=== PATIENT | male | born 1965 | race Caucasian/White ===

== ENCOUNTER 2017-02-22 13:59 | Observation (INO) | payer OTHER ==
[2017-02-22] MEDS ORDERED: NS 0.9% 1000 ML* 1,000 ML IV SCH (14:30)
--- NOTE | 2017-02-22 14:50 | RAD ---
INDICATION: Weakness COMPARISON: November 05, 2004 TECHNIQUE: An AP portable view obtained at 1433 hours is submitted. FINDINGS: Bones/Soft Tissues: There are no acute bony findings. Cardiomediastinal: The cardiomediastinal silhouette is normal. Lungs: There are no infiltrates. Pleura: There are no pleural effusions. Other: None IMPRESSION: NO ACTIVE DISEASE.
[2017-02-22 15:00] LABS: Hematocrit 45 % (42-52); Hemoglobin 15.3 g/dl (14.0-18.0); Mean Corpuscular HGB Conc 34 g/dl (31-36); Mean Corpuscular Hemoglobin 30 pg (27-31); Mean Corpuscular Volume 87 fL (80-94); Mean Platelet Volume 9 um3 (7.4-10.4); Red Cell Distribution Width 14 % (10.5-15)
[2017-02-22 15:21] LABS: ALT 19 U/L (7-52); AST 16 U/L (13-39); Albumin 4.3 g/dL (3.2-5.2); Alkaline Phosphatase 59 U/L (34-104); Anion Gap 6 mmol/L (2-11); BUN/Creatinine Ratio 21.2 (8-20); Blood Urea Nitrogen 14 mg/dL (6-24); C Reactive Protein < 1.00 mg/L (< 5.00); CO2 Carbon Dioxide 27 mmol/L (22-32); Calcium 9.6 mg/dL (8.6-10.3); Chloride 101 mmol/L (101-111); Creatine Kinase 52 U/L (10-223); EGFR Non-African American 128.3 (>60); Globulin 2.6 g/dL (2-4); Glucose 241 mg/dL (70-100); Lipase < 10 U/L (11.0-82.0); Magnesium 1.9 mg/dL (1.9-2.7); Potassium 4.3 mmol/L (3.5-5.0); Sodium 134 mmol/L (133-145); Total Protein 6.9 g/dL (6.4-8.9)
[2017-02-22 15:41] LABS: TSH (Thyroid Stimulating Horm) 0.47 mcIU/mL (0.34-5.60)
[2017-02-22 16:48] LABS: Urine Bilirubin Negative (Negative); Urine Glucose 3+(>=500 mg/dL) (Negative); Urine Nitrite Negative (Negative)
[2017-02-22] MEDS ORDERED: oxyCODONE/Acetamin 5/325 MG* TAB PO ONE (18:22)
[2017-02-22] MEDS ORDERED: NS 0.9% 1000 ML* 2,000 ML IV ONE (18:23)
--- NOTE | 2017-02-22 18:55 | ED ---
Toño Caballero Benjamin, scribed for Checo Henderson MD on 02/22/17 at 1713 . Neurological HPI - HPI Summary HPI Summary: 51yo male c/o SOB today and increasing weakness over the last few days. Pt has tremors and has been taking propranolol but was recently taken off from it since his tremors turned out to be anxiety related not parkinsonian and his med has been giving him arm numbness, cold hands, and generalized pain. Pt has been weak chronically for over 15 months but reports his weakness becoming progressively worse over last couple of days. Pt has been following up with Dr. Arora but hasnt yet told Dr. Arora about his recent acute changes. Pt has also been constipated over a week now. - History of Current Complaint Chief Complaint: EDWeakness Stated Complaint: ARM NUMBNESS/HEADACHE Time Seen by Provider: 02/22/17 16:21 Hx Obtained From: Patient Onset/Duration: Started days ago - 2-3 days, Still Present Timing: Constant Onset Severity: Mild Current Severity: Moderate Neurological Deficit Location: Generalized - weakness Pain Intensity: 10 Character: Weak - Additional Pertinent History Primary Care Physician: [id number] - Allergy/Home Medications Allergies/Adverse Reactions: Allergies Allergy/AdvReac Type Severity Reaction Status Date / Time Penicillins Allergy Severe Rash Verified 05/25/16 11:21 Gabapentin Allergy Rash Verified 05/25/16 11:21 Home Medications: Home Medications Docusate CAP* [Colace Cap*] 100 mg PO QPM 02/22/17 [History Confirmed 02/22/17] Insulin Detemir (NF) [Levemir (NF)] 22 unit SUBCUT BID MDD 90 units 02/22/17 [ History Confirmed 02/22/17] Losartan TAB* [Cozaar TAB*] 100 mg PO DAILY 02/22/17 [History Confirmed 02/22/17 ] Omeprazole CAP* [Prilosec CAP* 20 MG] 20 mg PO DAILY 02/22/17 [History Confirmed 02/22/17] Propranolol TAB* [Inderal TAB*] 10 mg PO BID 02/22/17 [History Confirmed ] Simvastatin TAB(NF) [Zocor(NF)] 10 mg PO DAILY 02/22/17 [History Confirmed 02/22] PMH/Surg Hx/FS Hx/Imm Hx Endocrine/Hematology History: Reports: Hx Diabetes Cardiovascular History: Reports: Hx Hypertension Denies: Hx Pacemaker/ICD History: Denies: Hx Renal Disease Sensory History: Denies: Hx Hearing Aid Neurological History: Reports: Other Neuro Impairments/Disorders - parkinsonian tremors Psychiatric History: Reports: Hx Eating Disorder - binge and purges uses laxatives, Hx Depression, Hx Community Mental Health Tx Denies: Hx Panic Disorder, Hx of Violent Episodes Against Others - Surgical History Surgery Procedure, Year, and Place: ROTATOR CUFF REPAIR RIGHT 2012 Infectious Disease History: No Infectious Disease History: Denies: Traveled Outside the [place] in Last 30 Days - Family History Known Family History: Positive: Other - depression - Social History Occupation: Unemployed Lives: With Family Alcohol Use: None Substance Use Type: Reports: Prescribed Substance Use Comment - Amount & Last Used: klonopin Hx Tobacco Use: Yes Smoking Status (MU): Former Smoker Have You Smoked in the Last Year: No Review of Systems Constitutional: Negative Eyes: Negative ENT: Negative Cardiovascular: Negative Positive: Shortness Of Breath Gastrointestinal: Negative Genitourinary: Negative Musculoskeletal: Negative Skin: Negative Positive: Weakness Psychological: Normal All Other Systems Reviewed And Are Negative: Yes Physical Exam Triage Information Reviewed: Yes Vital Signs On Initial Exam: Initial Vitals Temp Pulse Resp BP Pulse Ox 99.2 F 91 17 131/89 100 02/22/17 14:03 02/22/17 14:03 02/22/17 14:03 02/22/17 14:03 02/22/17 14:03 Vital Signs Reviewed: Yes Appearance: Positive: No Pain Distress, Well-Nourished, Ill-Appearing - mildly Skin: Positive: Warm, Dry, Pale Head/Face: Positive: Normal Head/Face Inspection, TMJ Tenderness ENT: Positive: Normal ENT inspection Neck: Positive: Supple, Nontender Respiratory/Lung Sounds: Positive: Clear to Auscultation, Breath Sounds Present Cardiovascular: Positive: RRR, Pulses are Symmetrical in both Upper and Lower Extremities Abdomen Description: Positive: Nontender, Soft Bowel Sounds: Positive: Present Musculoskeletal: Negative: Strength/ROM Intact - weakness, generalized Neurological: Positive: Alert, Oriented to Person Place, Time. Negative: Sensory/Motor Intact - weakness, generalized Psychiatric: Positive: Affect/Mood Appropriate - [place] Coma Scale Coma Scale Total: 15 Diagnostics - Vital Signs Vital Signs Temp Pulse Resp BP Pulse Ox 02/22/17 15:30 80 14 117/72 99 08/23/17 15:00 93 17 150/83 100 02/22/17 14:30 90 13 121/74 100 02/22/17 14:17 93 15 100 02/22/17 14:15 118/90 02/22/17 14:03 99.2 F 91 17 131/89 100 - Laboratory Lab Results: Lab Results 02/22/17 02/22/17 02/22/17 Range/Units 14:45 14:45 14:45 WBC 7.0 (3.5-10.8) 10^3/ul RBC 5.20 (4.0-5.4) 10^6/ul Hgb 15.3 (14.0-18.0) g/dl Hct 45 (42-52) % MCV 87 (80-94) fL MCH 30 (27-31) pg MCHC 34 (31-36) g/dl RDW 14 (10.5-15) % Plt Count 166 (150-450) 10^3/ul MPV 9 (7.4-10.4) um3 Neut % (Auto) 73.1 (38-83) % Lymph % (Auto) 19.7 L (25-47) % [place] % (Auto) 6.1 (1-9) % Eos % (Auto) 0.9 (0-6) % Baso % (Auto) 0.2 (0-2) % Absolute Neuts (auto) 5.1 (1.5-7.7) 10^3/ul Absolute Lymphs (auto) 1.4 (1.0-4.8) 10^3/ul Absolute Monos (auto) 0.4 (0-0.8) 10^3/ul Absolute Eos (auto) 0.1 (0-0.6) 10^3/ul Absolute Basos (auto) 0 (0-0.2) 10^3/ul Absolute Nucleated RBC 0 10^3/ul Nucleated RBC % 0 INR (Anticoag Therapy) 0.98 (0.89-1.11) APTT 26.8 (26.0-36.3) seconds Sodium (133-145) mmol/L Potassium (3.5-5.0) mmol/L Chloride (101-111) mmol/L Carbon Dioxide (22-32) mmol/L Anion Gap (2-11) mmol/L BUN (6-24) mg/dL Creatinine (0.67-1.17) mg/dL Est GFR ( Amer) (>60) Est GFR (Non-Af Amer) (>60) BUN/Creatinine Ratio (8-20) Glucose (70-100) mg/dL Lactic Acid (0.5-2.0) mmol/L Calcium (8.6-10.3) mg/dL Magnesium (1.9-2.7) mg/dL Total Bilirubin (0.2-1.0) mg/dL AST (13-39) U/L ALT (7-52) U/L Alkaline Phosphatase (34-104) U/L Total Creatine Kinase (10-223) U/L CK-MB (CK-2) (0.6-6.3) ng/mL Troponin I (<0.04) ng/mL C-Reactive Protein (< 5.00) mg/L B-Natriuretic Peptide 20 ( - 100) pg/mL Total Protein (6.4-8.9) g/dL Albumin (3.2-5.2) g/dL Globulin (2-4) g/dL Albumin/Globulin Ratio (1-3) Lipase (11.0-82.0) U/L TSH (0.34-5.60) mcIU/mL Urine Color Urine Appearance Urine pH (5-9) Ur Specific [place] (1.010-1.030) Urine Protein (Negative) Urine Ketones (Negative) Urine Blood (Negative) Urine Nitrate (Negative) Urine Bilirubin (Negative) Urine Urobilinogen (Negative) Ur Leukocyte Esterase (Negative) Urine Glucose (Negative) Urine Ascorbic Acid (Negative) 02/22/17 02/22/17 02/22/17 Range/Units 14:45 14:45 16:36 WBC (3.5-10.8) 10^3/ul RBC (4.0-5.4) 10^6/ul Hgb (14.0-18.0) g/dl Hct (42-52) % MCV (80-94) fL MCH (27-31) pg MCHC (31-36) g/dl RDW (10.5-15) % Plt Count (150-450) 10^3/ul MPV (7.4-10.4) um3 Neut % (Auto) (38-83) % Lymph % (Auto) (25-47) % [place] % (Auto) (1-9) % Eos % (Auto) (0-6) % Baso % (Auto) (0-2) % Absolute Neuts (auto) (1.5-7.7) 10^3/ul Absolute Lymphs (auto) (1.0-4.8) 10^3/ul Absolute Monos (auto) (0-0.8) 10^3/ul Absolute Eos (auto) (0-0.6) 10^3/ul Absolute Basos (auto) (0-0.2) 10^3/ul Absolute Nucleated RBC 10^3/ul Nucleated RBC % INR (Anticoag Therapy) (0.89-1.11) APTT (26.0-36.3) seconds Sodium 134 (133-145) mmol/L Potassium 4.3 (3.5-5.0) mmol/L Chloride 101 (101-111) mmol/L Carbon Dioxide 27 (22-32) mmol/L Anion Gap 6 (2-11) mmol/L BUN 14 (6-24) mg/dL Creatinine 0.66 L (0.67-1.17) mg/dL Est GFR ( Amer) 165.0 (>60) Est GFR (Non-Af Amer) 128.3 (>60) BUN/Creatinine Ratio 21.2 H (8-20) Glucose 241 H (70-100) mg/dL Lactic Acid 1.2 (0.5-2.0) mmol/L Calcium 9.6 (8.6-10.3) mg/dL Magnesium 1.9 (1.9-2.7) mg/dL Total Bilirubin 0.50 (0.2-1.0) mg/dL AST 16 (13-39) U/L ALT 19 (7-52) U/L Alkaline Phosphatase 59 (34-104) U/L Total Creatine Kinase 52 (10-223) U/L CK-MB (CK-2) 2.0 (0.6-6.3) ng/mL Troponin I 0.00 (<0.04) ng/mL C-Reactive Protein < 1.00 (< 5.00) mg/L B-Natriuretic Peptide ( - 100) pg/mL Total Protein 6.9 (6.4-8.9) g/dL Albumin 4.3 (3.2-5.2) g/dL Globulin 2.6 (2-4) g/dL Albumin/Globulin Ratio 1.7 (1-3) Lipase < 10 L (11.0-82.0) U/L TSH 0.47 (0.34-5.60) mcIU/mL Urine Color Yellow Urine Appearance Clear Urine pH 7.0 (5-9) Ur Specific [place] 1.026 (1.010-1.030) Urine Protein Negative (Negative) Urine Ketones 1+ H (Negative) Urine Blood Negative (Negative) Urine Nitrate Negative (Negative) Urine Bilirubin Negative (Negative) Urine Urobilinogen Negative (Negative) Ur Leukocyte Esterase Negative (Negative) Urine Glucose 3+(>=500 mg/dl) H (Negative) Urine Ascorbic Acid * H (Negative) Result Diagrams: 02/22/17 14:45 02/22/17 14:45 Lab Statement: Any lab studies that have been ordered have been reviewed, and results considered in the medical decision making process. - Radiology CXR Xray Interpretation: No Acute Changes Radiology Interpretation Completed By: Radiologist - ED physician has reviewed this radiology report and agrees. - EKG 1425. Cardiac Rate: NL - 90bpm EKG Rhythm: Sinus Rhythm Ectopy: None EKG Interpretation: early repolarization Course/Dx - Course Course Of Treatment: Reviewed pts medication and allergy lists. Blood pressure noted. Discussed with Dr. Estes (Neurology) at 1650. Discussed with Dr. Martinez (Hospitalist) at 1720. Discussed with Dr. Carina Sosa who requested Hospitalist to admit. Discussed with Dr. Lomas (Hospitalist) at 1945. - Diagnoses Provider Diagnoses: Weakness Discharge - Discharge Plan Condition: Stable Disposition: ADMITTED TO [facility] Referrals: Marcio Swenson MD [Primary Care Provider] - The documentation as recorded by the Toño daly Benjamin accurately reflects the service I personally performed and the decisions made by me, Checo Henderson MD.
[2017-02-22] MEDS ORDERED: Dextrose 50% Syringe 50 ML* 25 GM/50 ML SYRINGE IV PUSH PRN (19:23)
--- NOTE | 2017-02-22 19:27 | ADMNOTE ---
Subjective Date of Service: 02/22/17 Interval History: ADMISSION HISTORY AND PHYSICAL EXAM: Allergies Allergy/AdvReac Type Severity Reaction Status Date / Time Penicillins Allergy Severe Rash Verified 05/25/16 11:21 Gabapentin Allergy Rash Verified 05/25/16 11:21 Home Medications Medication Instructions Recorded Confirmed Type clonazePAM TAB(*) [Klonopin TAB(*)] 1 mg PO BEDTIME 07/07/13 02/22/17 History Insulin Lispro [Humalog] 0 unit SC ACHS 05/25/16 02/22/17 History Docusate CAP* [Colace Cap*] 100 mg PO QPM 02/22/17 02/22/17 History Insulin Detemir (NF) [Levemir (NF)] 22 unit SUBCUT BID MDD 90 units 02/22/17 History Losartan TAB* [Cozaar TAB*] 100 mg PO DAILY 02/22/17 02/22/17 History Omeprazole CAP* [Prilosec CAP* 20 20 mg PO DAILY 02/22/17 02/22/17 History MG] Propranolol TAB* [Inderal TAB*] 10 mg PO BID 02/22/17 02/22/17 History Simvastatin TAB(NF) [Zocor(NF)] 10 mg PO DAILY 02/22/17 02/22/17 History HPI: the patient states he has had 4-extremity weakness for 15 months, but it is much worse the past 2 days. His arms are also numb. This AM he fell trying to get to the bathroom. He took his AM Lantus and his BP pill. He did not eat all morning. He called 911 about noon. Family History: Findings - unremarkable Past Medical History: Findings - DM. Multiple psychiatric admissions with multiple dx's. Hx bulimia. Review of Systems - Measurements Intake and Output: Intake and Output Last 24 Hours 02/20/17 02/21/17 02/22/17 02/23/17 06:59 06:59 06:59 06:59 Weight 140 lb - Review of Systems Constitutional Symptoms: Positive: Weight Gain - 18 lbs in past 6 months, has controlled his anorexia better, no emesis recently Dermatology: Positive: Normal HEENT: Positive: Normal Eyes: Positive: Normal Thyroid: Positive: Normal Pulmonary: Positive: COPD Cardiology: Positive: Normal Gastroenterology: Positive: Normal Genital - Urinary: Positive: Normal Musculoskeletal: Positive: Other - pain both legs Endocrinology: Positive: Diabetes Mellitus Hematologic/Lymphatic: Negative: Anemia, Easy Brusing, Hx Leukemia, Hx Lymphoma, Use of Anticoagulant, Use of Antiplatelet Drugs, Other Neurology: Positive: Change in Walking, Other - weakness Psychiatry: Positive: Depression Allergic/Immunologic: Negative: Hx Anaphylaxis, Hx Angioedema, Hx Environmental, Hx Seasonal, Athsma, Hx HIV, Immunocompromise, Swollen Glands LymphNodes, Other Objective Active Medications: Sodium Chloride (Ns 0.9% 1000 Ml*) 1,000 mls @ 150 mls/hr IV PER RATE JONNY Last Admin: 02/22/17 14:00 Dose: 150 mls/hr Sodium Chloride (Ns 0.9% 1000 Ml*) 2,000 mls @ 1,000 mls/hr IV ED ONCE ONE Stop: 02/22/17 20:22 Last Admin: 02/22/17 18:31 Dose: 1,000 mls/hr Vital Signs 02/22/17 02/22/17 02/22/17 14:03 14:15 14:17 Temperature 99.2 F Pulse Rate 91 93 Respiratory 17 15 Rate Blood Pressure 131/89 118/90 (mmHg) O2 Sat by Pulse 100 100 Oximetry 02/22/17 02/22/17 02/22/17 14:30 15:00 15:30 Temperature Pulse Rate 90 93 80 Respiratory 13 17 14 Rate Blood Pressure 121/74 150/83 117/72 (mmHg) O2 Sat by Pulse 100 100 99 Oximetry 02/22/17 02/22/17 02/22/17 16:00 16:30 17:00 Temperature Pulse Rate 80 93 89 Respiratory 14 18 20 Rate Blood Pressure 102/67 134/82 131/71 (mmHg) O2 Sat by Pulse 98 100 100 Oximetry 02/22/17 02/22/17 02/22/17 17:30 18:00 18:30 Temperature Pulse Rate 75 72 72 Respiratory 18 14 15 Rate Blood Pressure 108/64 98/62 108/70 (mmHg) O2 Sat by Pulse 98 98 99 Oximetry 02/22/17 18:31 Temperature Pulse Rate Respiratory 16 Rate Blood Pressure (mmHg) O2 Sat by Pulse Oximetry Oxygen Devices in Use Now: None Appearance: Alert, supine on ED stretcher. Somewhat anxious, otherwise looks comfortable. Eyes: No Scleral Icterus Ears/Nose/Mouth/Throat: Clear Oropharnyx, Mucous Membranes Moist Neck: NL Appearance and Movements; NL JVP, No Thyroid Enlargement, Masses Respiratory: Symmetrical Chest Expansion and Respiratory Effort, Clear to Auscultation, Clear to Percussion Cardiovascular: NL Sounds; No Murmurs; No JVD, RRR, No Edema, - Abdominal: NL Sounds; No Tenderness; No Distention, No Hepatosplenomegaly, - Extremities: No Edema, No Clubbing, Cyanosis, - Skin: No Rash or Ulcers, No Nodules or Sclerosis, - Neurological: Alert and Oriented x 3, NL Sensation, - - Weak all extremities, ? full effort. Result Diagrams: 02/22/17 14:45 02/22/17 14:45 Additional Lab and Data: Lab Results 02/22/17 02/22/17 02/22/17 Range/Units 14:45 14:45 14:45 WBC 7.0 (3.5-10.8) 10^3/ul RBC 5.20 (4.0-5.4) 10^6/ul Hgb 15.3 (14.0-18.0) g/dl Hct 45 (42-52) % MCV 87 (80-94) fL MCH 30 (27-31) pg MCHC 34 (31-36) g/dl RDW 14 (10.5-15) % Plt Count 166 (150-450) 10^3/ul MPV 9 (7.4-10.4) um3 Neut % (Auto) 73.1 (38-83) % Lymph % (Auto) 19.7 L (25-47) % [place] % (Auto) 6.1 (1-9) % Eos % (Auto) 0.9 (0-6) % Baso % (Auto) 0.2 (0-2) % Absolute Neuts (auto) 5.1 (1.5-7.7) 10^3/ul Absolute Lymphs (auto) 1.4 (1.0-4.8) 10^3/ul Absolute Monos (auto) 0.4 (0-0.8) 10^3/ul Absolute Eos (auto) 0.1 (0-0.6) 10^3/ul Absolute Basos (auto) 0 (0-0.2) 10^3/ul Absolute Nucleated RBC 0 10^3/ul Nucleated RBC % 0 INR (Anticoag Therapy) 0.98 (0.89-1.11) APTT 26.8 (26.0-36.3) seconds Sodium (133-145) mmol/L Potassium (3.5-5.0) mmol/L Chloride (101-111) mmol/L Carbon Dioxide (22-32) mmol/L Anion Gap (2-11) mmol/L BUN (6-24) mg/dL Creatinine (0.67-1.17) mg/dL Est GFR ( Amer) (>60) Est GFR (Non-Af Amer) (>60) BUN/Creatinine Ratio (8-20) Glucose (70-100) mg/dL Lactic Acid (0.5-2.0) mmol/L Calcium (8.6-10.3) mg/dL Magnesium (1.9-2.7) mg/dL Total Bilirubin (0.2-1.0) mg/dL AST (13-39) U/L ALT (7-52) U/L Alkaline Phosphatase (34-104) U/L Total Creatine Kinase (10-223) U/L CK-MB (CK-2) (0.6-6.3) ng/mL Troponin I (<0.04) ng/mL C-Reactive Protein (< 5.00) mg/L B-Natriuretic Peptide 20 ( - 100) pg/mL Total Protein (6.4-8.9) g/dL Albumin (3.2-5.2) g/dL Globulin (2-4) g/dL Albumin/Globulin Ratio (1-3) Lipase (11.0-82.0) U/L TSH (0.34-5.60) mcIU/mL Urine Color Urine Appearance Urine pH (5-9) Ur Specific [place] (1.010-1.030) Urine Protein (Negative) Urine Ketones (Negative) Urine Blood (Negative) Urine Nitrate (Negative) Urine Bilirubin (Negative) Urine Urobilinogen (Negative) Ur Leukocyte Esterase (Negative) Urine Glucose (Negative) Urine Ascorbic Acid (Negative) 02/22/17 02/22/17 02/22/17 Range/Units 14:45 14:45 16:36 WBC (3.5-10.8) 10^3/ul RBC (4.0-5.4) 10^6/ul Hgb (14.0-18.0) g/dl Hct (42-52) % MCV (80-94) fL MCH (27-31) pg MCHC (31-36) g/dl RDW (10.5-15) % Plt Count (150-450) 10^3/ul MPV (7.4-10.4) um3 Neut % (Auto) (38-83) % Lymph % (Auto) (25-47) % [place] % (Auto) (1-9) % Eos % (Auto) (0-6) % Baso % (Auto) (0-2) % Absolute Neuts (auto) (1.5-7.7) 10^3/ul Absolute Lymphs (auto) (1.0-4.8) 10^3/ul Absolute Monos (auto) (0-0.8) 10^3/ul Absolute Eos (auto) (0-0.6) 10^3/ul Absolute Basos (auto) (0-0.2) 10^3/ul Absolute Nucleated RBC 10^3/ul Nucleated RBC % INR (Anticoag Therapy) (0.89-1.11) APTT (26.0-36.3) seconds Sodium 134 (133-145) mmol/L Potassium 4.3 (3.5-5.0) mmol/L Chloride 101 (101-111) mmol/L Carbon Dioxide 27 (22-32) mmol/L Anion Gap 6 (2-11) mmol/L BUN 14 (6-24) mg/dL Creatinine 0.66 L (0.67-1.17) mg/dL Est GFR ( Amer) 165.0 (>60) Est GFR (Non-Af Amer) 128.3 (>60) BUN/Creatinine Ratio 21.2 H (8-20) Glucose 241 H (70-100) mg/dL Lactic Acid 1.2 (0.5-2.0) mmol/L Calcium 9.6 (8.6-10.3) mg/dL Magnesium 1.9 (1.9-2.7) mg/dL Total Bilirubin 0.50 (0.2-1.0) mg/dL AST 16 (13-39) U/L ALT 19 (7-52) U/L Alkaline Phosphatase 59 (34-104) U/L Total Creatine Kinase 52 (10-223) U/L CK-MB (CK-2) 2.0 (0.6-6.3) ng/mL Troponin I 0.00 (<0.04) ng/mL C-Reactive Protein < 1.00 (< 5.00) mg/L B-Natriuretic Peptide ( - 100) pg/mL Total Protein 6.9 (6.4-8.9) g/dL Albumin 4.3 (3.2-5.2) g/dL Globulin 2.6 (2-4) g/dL Albumin/Globulin Ratio 1.7 (1-3) Lipase < 10 L (11.0-82.0) U/L TSH 0.47 (0.34-5.60) mcIU/mL Urine Color Yellow Urine Appearance Clear Urine pH 7.0 (5-9) Ur Specific [place] 1.026 (1.010-1.030) Urine Protein Negative (Negative) Urine Ketones 1+ H (Negative) Urine Blood Negative (Negative) Urine Nitrate Negative (Negative) Urine Bilirubin Negative (Negative) Urine Urobilinogen Negative (Negative) Ur Leukocyte Esterase Negative (Negative) Urine Glucose 3+(>=500 mg/dl) H (Negative) Urine Ascorbic Acid * H (Negative) Assess/Plan/Problems-Billing Assessment: - Patient Problems (1) Weakness Current Visit: Yes Status: Acute Code(s): R53.1 - WEAKNESS SNOMED Code(s) : 87787985 Comment: He has been evaluated for this by Dr. Arora, was being treated with propranol 10 mg daily for a tremor but did not take it today. Dr. Estes to consult on pt. PT eval. (2) Type I diabetes mellitus Current Visit: No Status: Acute Comment: Difficult to manage DM and anorexia. Will give 12 U Lantus BID instead of his usual 20 bid. Lispro by SS. (3) Depression Current Visit: No Status: Acute Code(s): F32.9 - MAJOR DEPRESSIVE DISORDER, SINGLE EPISODE, UNSPECIFIED SNOMED Code(s): 89749183 Comment: Not overtly depressed at this time. May need psychiatry input at some point.
[2017-02-22] MEDS ORDERED: oxyCODONE/Acetamin 5/325 MG* TAB PO PRN (20:23)
[2017-02-22] MEDS: Insulin LISPRO* 1 UNITS UNIT SUBCUT SCH (21:59)
[2017-02-22] MEDS: NS 0.9% 1000 ML* 1,000 ML IV SCH (22:19)
[2017-02-22] MEDS: clonazePAM TAB(*) 1 MG PO SCH (22:19)
[2017-02-22] MEDS: Insulin GLARGINE(*) 1 UNITS UNIT SUBCUT SCH (22:21)
[2017-02-22] MEDS: Butalb/Acetamin/Caff TAB* 1 TAB PO PRN (22:28)
[2017-02-23] MEDS: Omeprazole CAP* 20 MG PO SCH ×2 (08:26→08:28)
[2017-02-23] MEDS: Insulin GLARGINE(*) 1 UNITS UNIT SUBCUT SCH ×2 (08:26→20:41)
[2017-02-23] MEDS: Insulin LISPRO* 1 UNITS UNIT SUBCUT SCH ×4 (09:03→20:40)
[2017-02-23] MEDS: Butalb/Acetamin/Caff TAB* 1 TAB PO PRN ×2 (09:06→20:42)
[2017-02-23] MEDS ORDERED: LORazepam TAB(*) 0.5 MG PO ONE (11:00)
[2017-02-23] MEDS: NS 0.9% 1000 ML* 1,000 ML IV SCH (12:25)
[2017-02-23 15:44] LABS: Calcium (PTH Intact) 9.1 mg/dL (8.6-10.3); Iron 92 ug/dL (50-212); Total Iron Binding Capacity 284 mcg/dL (250-450); Transferrin 203 mg/dL (203-362)
[2017-02-23 16:07] LABS: Folate > 20.00 ng/mL (>3.99)
[2017-02-23 16:08] LABS: Vitamin B12 592 pg/mL (180-914)
[2017-02-23 16:29] LABS: Magnesium 1.8 mg/dL (1.9-2.7); Phosphorus 2.7 mg/dL (2.5-5.0)
[2017-02-23] MEDS ORDERED: Insulin LISPRO* 1 UNITS UNIT SUBCUT ONE (17:00)
[2017-02-23] MEDS: Carbidopa/Levodop 25/100 MG TAB(*) PO SCH (17:18)
[2017-02-23] MEDS: Docusate CAP* 100 MG PO SCH (17:18)
[2017-02-23] MEDS: LORazepam TAB(*) 0.5 MG PO PRN (17:18)
--- NOTE | 2017-02-23 17:29 | ECHO ---
Patient: DANIS JHAVERI [facility] Rec#: [id number] : 1965 Date: 02/23/2017 Age: 51y Height: 177.8 cm / 70.0 in Weight: 63.5 kg / 140.0 lbs Sex: M BSA: 1.79 Room#: 412 Admit Date#: 02/22/2017 Type: Inpatient Referring: Carina Sosa MD Reading: Danis Cope DO City Maintenance Manager: Deidre Booker RDCS,RDMS CC: Marcio Swenson MD Transthoracic Echocardiogram Indication: Murmur BP: 108/74 HR: 76 Rhythm: NSR Findings History: DM, HTN, increasing SOB Technical Comments: The study quality is fair. Left Ventricle: The left ventricular chamber size is normal. Mild concentric left ventricular hypertrophy is observed. The left ventricle appears hyperdynamic. The estimated ejection fraction is greater than 65%. There is no consistent Doppler evidence of clinically significant diastolic dysfunction. Left Atrium: The left atrial chamber size is normal. Right Ventricle: The right ventricular chamber size and systolic function are within normal limits. Right Atrium: The right atrial cavity size is normal. Aortic Valve: There is no evidence of aortic valve thickening. There is no evidence of aortic regurgitation. There is no evidence of aortic stenosis. Mitral Valve: The mitral valve leaflets appear normal. There is no evidence of mitral regurgitation. There is no evidence of mitral stenosis. Tricuspid Valve: The tricuspid valve leaflets are normal. There is trace tricuspid regurgitation. Unable to estimate the right ventricular systolic pressure. Pulmonic Valve: The pulmonic valve structure is not well visualized. There is no evidence of pulmonic regurgitation. Pericardium: There is no significant pericardial effusion. Aorta: The ascending aorta is not well visualized. The aortic arch is not well visualized. The aortic root is normal in size. Pulmonary Artery: The main pulmonary artery is not well visualized. Venous: The inferior vena cava appears normal in size. There is an approximate 50% respiratory change in the inferior vena cava dimension. Conclusions The left ventricular chamber size is normal. Mild concentric left ventricular hypertrophy is observed. The left ventricle appears hyperdynamic. The estimated ejection fraction is greater than 65%. The right ventricular chamber size and systolic function are within normal limits. No significant valvular abnormalities noted on technically difficult imaging. No prior studies available for comparison at time of interpretation. Measurements Name Value Normal Range RVIDd (AP) 2D 1.6 cm (0.9 - 2.6) RVDdMajor (2D) 2.7 cm (2.2 - 4.4) RAd ISD 4CH 3.4 cm (3.4 - 4.9) RA (A4C)W 3 cm (2.9 - 4.6) IVSd (2D) 1.1 cm (0.6 - 1) LVPWd (2D) 1.1 cm (0.6 - 1) LVIDd (2D) 3.6 cm (3.6 - 5.4) LVIDs (2D) 2.2 cm - LV FS (2D) 38 % (25 - 45) Aortic Annulus 2 cm (1.4 - 2.6) Ao root diameter (2D) 3 cm (2.1 - 3.5) LAd ISD 4CH 3.6 cm (2.9 - 5.3) LA ISD 4CH W 3.2 cm (2.5 - 4.5) Name Value Normal Range LA ESV SP 4CH (A/L) 24.15 ml - LA ESV SP 4CH (MOD) 22.54 ml - Name Value Normal Range MV E-wave Vmax 0.7 m/sec - MV deceleration time 223 msec - MV A-wave Vmax 0.7 m/sec - MV E:A ratio 1 ratio - LV septal e' Vmax 0.08 m/sec - LV lateral e' Vmax 0.14 m/sec - LV E:e' septal ratio 9 ratio - LV E:e' lateral ratio 5 ratio - Name Value Normal Range AV Vmax 1.5 m/sec - AV VTI 26 cm - AV peak gradient 9 mmHg - AV mean gradient 4.5 mmHg - LVOT Vmax 1.1 m/sec - LVOT VTI 22.4 cm - LVOT peak gradient 5 mmHg - LVOT mean gradient 2.7 mmHg - Name Value Normal Range RAP 8 mmHg - IVC diameter 1.9 cm - Name Value Normal Range PV Vmax 0.9 m/sec - PV peak gradient 3.4 mmHg -
--- NOTE | 2017-02-23 18:32 | CONS ---
CONSULTATION REPORT: DATE OF CONSULT: 02/23/17 LOCATION: He is in [facility], bed 2. REASON FOR CONSULTATION: Weakness. HISTORY OF PRESENT ILLNESS: Mr. Perez is a 51-year-old gentleman who has a history of multiple medical problems including depression/bipolar disease, previously followed by psychiatrist, type 1 diabetes, hypertension, history of anorexia, who has been followed by neurologist for a history of tremor. Apparently, he has been told in the past that he does not have Parkinson's disease, but continues to have tremors that are worse at rest, but notices them all the time. He has been tried on Sinemet in the past, but cannot remember if he had a good response. He has also recently been tried on propranolol and he feels that it has made him worse. He stopped it this last Monday. He has a long psychiatric history. He has been on lithium in the past and there was some concern that this could be a lithium tremor. In addition, he has been on Seroquel for 7 years. He stopped it in December. He is unclear whether the symptoms worsen while he was on that medication. He does not remember a history of Zyprexa, Geodon, Haldol. He currently states that his depression is under control. He does not feel suicidal or homicidal, but he does have fairly severe anorexia and admits that he had not eaten for 3 days prior to a sandwich yesterday. He states that his weakness has become greater over the last several months, but in the last 2 days, he became so weak, he could barely stand up. He feels very slow and unsteady on his feet. He denies any head trauma although he has fallen. He has some headache in the back of his head and neck, but otherwise no neck pain. No bladder or bowel incontinence. He has had no vision changes. He has some numbness and tingling in his legs, but this has been worsening over the last several weeks. He had a prior brain MRI in September 2015. At that time, it showed mild diffuse involutional changes with a few scattered small foci of elevated T2/FLAIR signal within the periventricular and subcortical white matter. These findings are nonspecific. They can be seen in associated with migraine headaches as a sequelae, previous infection or inflammation and chronic small vessel ischemia and demyelinating disease is also within the differential but considered less likely. He notes no changes in his bladder valve. He notes some constipation. He has been hospitalized for psychiatric issues in the past. He has not seen a psychiatrist for 3 months. When he came in to the hospital, his blood sugars were elevated. He states that he has had blood sugars up to 400. It is unclear whether he is compliant with his medication. PAST MEDICAL HISTORY: As noted above. FAMILY HISTORY: Significant for an uncle with ALS. He has no other family history of neuropathy or muscle disease. SOCIAL HISTORY: He was a prior smoker. No alcohol or drug use. He has not smoked in some time. REVIEW OF SYSTEMS: A 14 organ systems as noted above in the HPI, pertinent positives otherwise negative. He specifically notes some shortness of breath at times, constipation. No symptoms. Notes no real muscle pain but weakness. Notes a history of depression and anxiety. Occasional chest pain, which he thinks may be related to anxiety. He does note significant anxiety at times. PHYSICAL EXAM: Vital Signs: Temperature 98, pulse rate of 86, respiratory rate of 18, 100% O2 sat, blood pressure 108/64. General: He is a thin gentleman that looks cachectic. He is lying in his hospital bed. His movements are very slow. HEENT: Normocephalic, atraumatic. Sclerae anicteric. Mucous membranes are moist. Oropharynx is clear. He has a geographic tongue. No fasciculations noted. Neck is supple. No carotid bruits. Chest: Clear to auscultation bilaterally. Cardiovascular: Regular rate and rhythm. Abdomen is scaphoid, not tender. Extremities: No clubbing, cyanosis, or edema. He notes to have marked atrophy throughout. Skin is cool to the touch, but no obvious lesions. On neurologic exam, he is awake, alert, and oriented x3. His speech is fluent, although there is some hypophonia. He has decreased facial expression, decreased blink. He has no dysarthria. His mood appears dysthymic. His cranial nerves II through XII, pupils equally round and reactive to light. Extraocular muscles intact. Visual álvarez are full. His face is symmetric. Sensation is intact bilaterally. Hearing is intact. Shoulder shrug and sternocleidomastoid are intact. His palate elevates symmetrically. Tongue is midline. On motor exam, he has marked notable atrophy throughout his arms and legs. There are no fasciculations noted. He has generally 4+ strength throughout despite his reported weakness. His tone is moderately increased in the legs, is normal in the upper extremities. Bulk is diminished. His szwwig-dr-tcnc and rapid alternating movements are intact with some mild intention tremor. He does have some resting tremor, very subtle on the right hand, otherwise no resting tremor. No real cogwheeling. Sensation he states is diminished to light touch and pinprick in the lower extremities to the shins. His proprioception and vibration appeared to be intact throughout. He has no real sensory loss in the upper extremities to all modalities. DTRs are brisk, 3+ in the patella, 2+ at the ankles, downgoing Babinski's, 2+ at the biceps, 2+ at the brachioradialis, 2+ triceps. He feels too weak to ambulate. No evidence of ataxia on examination. LABORATORY DATA/DIAGNOSTIC STUDIES: Lab work includes a CBC with diff that was normal and INR and PTT that are normal. Blood sugars have been elevated, 272 to 356. His creatinine is 0.66, BUN of 21.2. Myoglobin of 16.6, which is low. Total creatine kinase of 52, CK-MB of 2. Liver enzymes are normal. TSH is 0.47. Lipase is low. C-reactive protein of less than 1. Urine shows 1+ ketones, 3+ glucose. Ascorbic acid high. Chest x-ray shows no active disease. ASSESSMENT AND PLAN: Mr. Perez is a 51-year-old gentleman with a history of multiple medical problems including type 1 diabetes, anorexia with profound weakness and atrophy, psychiatric issues including bipolar, previously on neuroleptics, most recently on Seroquel, but stopped several months ago. He has been on lithium in the past. He has been followed by a neurologist who initially felt he might have Parkinson's, but subsequently felt that it was likely essential tremor versus drug-induced tremor. Apparently, he has been tried on Sinemet in the past, but cannot remember if he had a good response. Presented to the hospital with worsening weakness over the last several months, but in the last 2 to 3 days has had dramatically worsened weakness, although on examination his strength is somewhat preserved and he does not appear to be too weak. There are no fasciculations on exam and has preserved reflexes but my suspicion for something like ALS is very low at this point. Given his marked atrophy, this appears to be nutritional in nature but I also worried about the possibility of underlying Parkinson's disease, primary versus drug induced. I spoke with Dr. Sosa at length about his case. She agrees that nutritional deficiencies may be adding to the problem. She is going to check a number of metabolic labs including B12, vitamin D, vitamin E, magnesium, phosphorus. His myoglobin and creatine kinase are normal. My suspicion for an underlying myopathic process is very low. A peripheral neuropathy is possible given his diabetes and it is something we may want to consider an EMG nerve conduction study for. Dr. Sosa and I did discuss the parkinsonian symptoms and we discussed it with him and feel that a trial of Sinemet is warranted. We will start him on 25/100, one-half pill, 3 times a day, 30 minutes before meals and see if he has any response. Often times, patients with drug-induced Parkinson' s do not respond well to the typical medications, but we will monitor closely. He will need to see therapist on discharge, both physical therapy, occupational therapy as well as some psychiatric counseling regarding his underlying conditions. There may be a psychiatric overlay to all of this complicating the picture. His examination is otherwise nonfocal. I do not think that there is any reason to do imaging at this point nor do I think there is any reason to do a lumbar puncture at this point, though we may consider it in the future. My suspicion for progressive ascending neuropathy such as Guillain-Berryville is very low as well. He has got preserved reflexes and his weakness is generalized and more subjective in nature. I will continue to follow him closely and make further recommendations if necessary. Thank you for the opportunity to participate in his care. [id number]/[facility] #: [id number] [facility] CENTERAllie
[2017-02-23] MEDS: clonazePAM TAB(*) 1 MG PO SCH (20:42)
[2017-02-24] MEDS: LORazepam TAB(*) 0.5 MG PO PRN ×3 (05:43→22:04)
[2017-02-24] MEDS: Insulin LISPRO* 1 UNITS UNIT SUBCUT SCH ×4 (07:38→22:02)
[2017-02-24] MEDS: Carbidopa/Levodop 25/100 MG TAB(*) PO SCH ×3 (07:42→16:34)
[2017-02-24] MEDS: Omeprazole CAP* 20 MG PO SCH (07:42)
[2017-02-24] MEDS: Insulin GLARGINE(*) 1 UNITS UNIT SUBCUT SCH ×3 (07:44→22:03)
[2017-02-24] MEDS ORDERED: Regadenoson* 0.4 MG/5 ML SYRINGE ONE (08:53)
[2017-02-24] MEDS ORDERED: Aminophylline IV* 25 MG/ML 10 ML VIAL ONE (08:53)
--- NOTE | 2017-02-24 08:53 | PN ---
PROGRESS NOTE: DATE OF PROGRESS NOTE: 02/24/17 LOCATION: He is currently in room 412, bed 2. HISTORY/SUBJECTIVE: Overnight, he slept better. He did receive benzodiazepine overnight, but this morning he woke up and he felt that his tremors were worse. He states that yesterday when he got his Sinemet, he felt that it helped him. He felt less anxious and he felt that the tremors were slightly better. He had no side effects from the medications, no hallucinations or other problems. He continues to feel generally weak and slow. No other new issues reported by the nurse or by the patient. PHYSICAL EXAMINATION: Vital Signs: Blood pressure has been low and the systolics in low 100s, diastolics 70s to 80s, afebrile, currently pulse rate of 75, respiratory rate of 18, pulse ox of 100%. In general, he is a thin, under- nourished gentleman lying in his hospital bed sleeping; he awakens easily. He is well dressed, well groomed. HEENT: He is normocephalic, atraumatic. Sclerae are anicteric. Mucous membranes are moist. Oropharynx is clear. Neck is supple. Chest is clear to auscultation bilaterally. Cardiovascular is regular rate and rhythm. Abdomen is scaphoid, nontender. Extremities: There is no edema present. On neurologic examination, he is awake, alert and oriented x3. His speech is fluent. There is no dysarthria. Repetition is intact. Cranial nerves II through XII. His visual álvarez are full. Pupils are equally round and reactive to light. Extraocular muscles are intact. His facial sensation is intact. Facial symmetry is intact. His hearing is intact. Palate raises symmetrically. Tongue is midline. His motor exam, he continues to have 4+/5 strength throughout. There is no focal deficits noted. His tone is increased throughout, greater in the left arm. He is bradykinetic. There is no cogwheeling noted in his upper extremities. He has a mild resting tremor in the left and right arms, worse with movement. He has a olzzti-cn-gavx tremor. No past pointing. No evidence of ataxia. Sensation is intact to light touch throughout. He is too weak to ambulate. LABORATORY RESULTS: Blood sugars have been high at 403 to 321 to 241. His vitamin D is 19.7, PTH is 5.4, calcium 9.1, folate greater than 20, B12 of 592, magnesium 1.9, calcium 9.6, phosphorus 2.7. He had an echocardiogram done yesterday, transthoracic - conclusion: Left ventricular chamber size normal, mild concentric left ventricular hypertrophy is observed, the left ventricle appears hyperdynamic, the estimated ejection fraction is greater than 65%, the right ventricular chamber size and systolic function are within normal limits, no significant valvular abnormalities noted on technically difficult imaging. ASSESSMENT AND PLAN: Mr. Perez is a 51-year-old gentleman with a history of significant psychiatric disorder, bipolar disease, anorexia, who has been on neuroleptics in the past, most recently Seroquel for the last 7 years which was stopped several months ago. He has been following with Dr. Arora in [facility] who has tried him on multiple medications, most recently propranolol which the patient stopped last Monday. The patient states that the most recent diagnosis has been essential tremor, which is why he was put on propranolol. He states that the propranolol made him feel worse, which is why he stopped it. He presented with profound fatigue and a feeling of weakness, although on examination his strength remains fairly intact. He does have good reflexes. There are no fasciculations on examination. I spoke with Dr. Sosa at length yesterday. She and I both feel that this may be nutritional versus some underlying Parkinson's disease, either primary or iatrogenic, from medication. 1. The plan is to continue his Sinemet. He feels that it has helped some. We will monitor him today and see how he responds. He believes he has tried it in the past, but does not remember how he responded. 2. We will follow up results of his metabolic workup. I continue to suspect that nutritional deficiencies are partly responsible for his muscle atrophy and wasting. 3. I see no evidence of myasthenia gravis. I see no evidence of motor neuron disease. I see no strong evidence for a myopathy. His muscle enzymes were normal. He has neither proximal or distal weakness that predominates. With the diabetes, certainly an underlying neuropathic process is possible, and he may need an EMG/nerve conduction study, but I believe this can wait as an outpatient. 4. I see no evidence of Guillain-Perez syndrome, and he has well-preserved reflexes and his strength, while diminished, is stable and he remains relatively strong. 5. Consider HIV. We will defer to Dr. Swenson/ regarding additional infectious workup. I will continue to follow him. Dr. Curry will be taking over this evening, and I will find out to him. [id number]/[facility] #: [id number] MTDD
--- NOTE | 2017-02-24 11:06 | RAD ---
Edited for charges. INDICATION: Chest pain COMPARISON: None TECHNIQUE: A single day SPECT protocol was utilized. Rest images were acquired following the intravenous injection of 10.1 millicuries of technetium 99m tetrofosmin. Exercise stress images were acquired following the intravenous administration of 25.9 millicuries of technetium 99m tetrofosmin. FINDINGS: There are no defects of the stress-induced or fixed nature. The cardiac chamber size is normal. There are no wall motion abnormalities. The ejection fraction is calculated at 69% during stress. Other: CT source images show mild right basilar atelectasis. IMPRESSION: NEGATIVE MYOCARDIAL EXAMINATION ASSESSMENT: LOW-RISK Based on imaging criteria from ACC/AHA 2002 Guideline Update for the Management of Patients With Chronic Stable Angina Table 23. Noninvasive Risk Stratification. MTDD
[2017-02-24] MEDS ORDERED: Ergocalciferol CAP* 50000 UNIT PO ONE (12:00)
[2017-02-24] MEDS: Butalb/Acetamin/Caff TAB* 1 TAB PO PRN (12:26)
[2017-02-24 14:14] LABS: Zinc 0.66 mcg/mL (0.66-1.10)
[2017-02-24] MEDS: Docusate CAP* 100 MG PO SCH (16:34)
[2017-02-24] MEDS: clonazePAM TAB(*) 1 MG PO SCH (22:03)
[2017-02-25] MEDS: Carbidopa/Levodop 25/100 MG TAB(*) PO SCH ×3 (07:38→16:14)
[2017-02-25] MEDS: Omeprazole CAP* 20 MG PO SCH (07:38)
[2017-02-25] MEDS: Insulin LISPRO* 1 UNITS UNIT SUBCUT SCH ×5 (07:39→21:35)
[2017-02-25] MEDS: Insulin GLARGINE(*) 1 UNITS UNIT SUBCUT SCH ×2 (07:39→21:35)
[2017-02-25 07:46] LABS: Whole Blood Vitamin B1 Level 172 nmol/L (70-180)
[2017-02-25] MEDS: LORazepam TAB(*) 0.5 MG PO PRN ×2 (09:29→21:34)
[2017-02-25] MEDS: Butalb/Acetamin/Caff TAB* 1 TAB PO PRN ×2 (09:30→16:24)
--- NOTE | 2017-02-25 16:05 | CONS ---
NEUROLOGY FOLLOWUP NOTE: DATE OF FOLLOWUP: 02/25/17 LOCATION: He is in room 412. PRIMARY CARE PHYSICIAN: Dr. Carina Sosa. CHIEF COMPLAINT: Tremor, parkinsonism, weakness. INTERVAL HISTORY: Since yesterday, Mr. Perez feels his tremors are about the same. I reviewed the history with him, his son, Yg, and his mother who is in the room. He has had tremor on and off over many years associated with lithium. When he would stop lithium, the tremor would go away. About 3 years ago, he was on lithium for suicidal ideation and flare-up of his bipolar disorder. Once the lithium was stopped, the tremor did not go away and he has had it for at least 2 or 3 years. He is followed by Dr. Arora for tremor and was tried on carbidopa/levodopa as recently as this past year. He was up to 1 tablet of a 25-100 preparation 3 times per day. There was no improvement. He was started on propranolol for his tremor after that. He has not been eating and he was getting weaker and weaker. He has anorexia nervosa as well. He was, therefore admitted for this hospitalization because of the severe weakness. MEDICATIONS: Medications are reviewed and he is on: 1. Sinemet 25/100 started yesterday half a tablet 3 times per day. 2. Klonopin 1 mg p.o. at bedtime. 3. Percocet 5/325 one q.6 hours p.r.n. pain. 4. Omeprazole 20 mg p.o. daily. 5. Lorazepam 0.5 mg q.4 hours p.r.n. anxiety, insulin. PHYSICAL EXAMINATION: He is currently well hydrated and fairly thin. Temperature 97.8 orally, blood pressure 118/69, heart rate is 18 and regular. Neurological exam, eye movements are normal. He has decreased eye blink rate with grade 2 hypomimia. Speech is soft, but clear. There is a very mild high frequency head tremor. There is very mild cogwheeling in the upper extremity, it is a little worse in the right arm than the left. I do not detect cogwheeling in the legs. He has diffuse mild weakness. He has intermittent sustention and action tremor in the right more than the left hand, but bilaterally. Finger taps are a little bit slow on both hands symmetrically and foot taps are slow in both feet. Reflexes are grade 1 in the upper extremities and trace at the knees and absent at the ankles. Plantar responses are flexor. He is alert and able to provide a good history. Language is fluent. LABORATORY DATA: Laboratory data is reviewed and his vitamin D level is low. (DICTATION ENDS HERE) [id number]/[facility] #: [id number] MTDD
--- NOTE | 2017-02-25 16:21 | CONS ---
NEUROLOGY FOLLOWUP NOTE: ADDENDUM: DATE OF FOLLOWUP: 02/25/17 LABORATORY DATA: Laboratory studies were reviewed and his blood glucose this morning is 431, vitami n D level yesterday low at 19.7. TSH is normal on 02/22/17 as is parathyroid hormone on 02/23/17. Magnesium is borderline low at 1.8, calcium and rest of electrolytes are normal. CK is normal as we ll. IMPRESSION: Parkinson and this is probably drug induced. He does not have a family history of park insonism and he had onset of symptoms after stopping lithium 2 or 3 years ago. In addition, he has been on lithium as recently as last year as he had a blood level of 0.55 last July. Nevertheless , I think it is reasonable to try carbidopa and levodopa and push it up as high as 200 mg 3 times pe r day. Sometimes, patients with tardive parkinsonism will respond to levodopa therapy. If it does n ot aggravate his psychiatric disorder and there is improvement, it might be worth continuing, but if he does not show improvement or if his psychiatric disorders worsen, then I would discontinue it. I have explained this to Ray and his family. I also think he has diffuse weakness from his anorex ia and malnourishment including vitamin D deficiency. We discussed the importance of maintaining ad equate nutrition, particularly with his diabetes. I explained that if his tremor is tardive and he is able to stay away from dopamine blocking agents, then it may gradually improve over time. Meanwh ile, we will try carbidopa/levodopa and I will monitor him with you. [id number]/[facility] #: [id number]
[2017-02-25] MEDS: Docusate CAP* 100 MG PO SCH (18:48)
[2017-02-25] MEDS: clonazePAM TAB(*) 1 MG PO SCH (21:33)
[2017-02-26 07:15] LABS: Hematocrit 41 % (42-52); Hemoglobin 13.7 g/dl (14.0-18.0); Mean Corpuscular HGB Conc 34 g/dl (31-36); Mean Corpuscular Hemoglobin 30 pg (27-31); Mean Corpuscular Volume 88 fL (80-94); Mean Platelet Volume 8 um3 (7.4-10.4); Red Blood Count 4.61 10^6/ul (4.0-5.4); Red Cell Distribution Width 14 % (10.5-15); White Blood Count 5.8 10^3/ul (3.5-10.8)
[2017-02-26] MEDS: Carbidopa/Levodop 25/100 MG TAB(*) PO SCH ×3 (07:19→16:46)
[2017-02-26] MEDS: Omeprazole CAP* 20 MG PO SCH (07:19)
[2017-02-26 07:29] LABS: Albumin 3.8 g/dL (3.2-5.2); BUN/Creatinine Ratio 17.6 (8-20); Calcium 9.4 mg/dL (8.6-10.3); EGFR African American 222.2 (>60); EGFR Non-African American 172.7 (>60); Globulin 1.9 g/dL (2-4); Potassium 3.4 mmol/L (3.5-5.0); Total Bilirubin 0.3 mg/dL (0.2-1.0); Total Protein 5.7 g/dL (6.4-8.9)
[2017-02-26] MEDS: Insulin LISPRO* 1 UNITS UNIT SUBCUT SCH ×7 (10:00→20:47)
[2017-02-26] MEDS: Insulin GLARGINE(*) 1 UNITS UNIT SUBCUT SCH ×2 (10:04→21:05)
[2017-02-26] MEDS: LORazepam TAB(*) 0.5 MG PO PRN (10:08)
[2017-02-26] MEDS: Butalb/Acetamin/Caff TAB* 1 TAB PO PRN ×3 (11:40→21:04)
[2017-02-26] MEDS ORDERED: Potassium Chlor TAB* 20 MEQ TAB.ER PO ONE (14:00)
[2017-02-26] MEDS: Docusate CAP* 100 MG PO SCH (16:46)
[2017-02-26] MEDS: clonazePAM TAB(*) 1 MG PO SCH (21:05)
[2017-02-27] MEDS: Butalb/Acetamin/Caff TAB* 1 TAB PO PRN ×3 (01:44→20:32)
[2017-02-27 05:34] LABS: BUN/Creatinine Ratio 17.3 (8-20); Calcium 9.4 mg/dL (8.6-10.3); EGFR African American 217.2 (>60); EGFR Non-African American 168.9 (>60); Magnesium 1.8 mg/dL (1.9-2.7); Potassium 3.7 mmol/L (3.5-5.0)
--- NOTE | 2017-02-27 07:45 | PN ---
Subjective - Subjective Reason for Note: Progress Note History: Ray Perez has been a primary care and endocrine patient at my office for 23 years. He has had progression of Parkinsonism, weakness, weight loss over the last year. I have reviewed his presentation in Dr. Jose Jackman's admitting history and physical and also Dr. Houston Estes's and Dr. Luis Eduardo Curry's consultations. I have reviewed imaging, EKGs, and labs. I have also reviewed the history with the patient. He is on a therapeutic trial of Levodopa/carbidopa (sinemet) therapy. His leg pains and weakness are being treated with vitamin D. Today, he tells me he had leg pains overnight, though not at the time I saw him. He has yet to receive todays sinemet. He continues to feel weak and doesn 't feel ready for discharge home, but is not interested in a SNF. He states his mental state is not depressed at present as he feels his move to [place] is very positive. He has had on target glucose levels recorded over the past 24 hours. Active Problems: Active Problems Hypotension (Acute) Parkinsonism (Acute) G20 Presumed due to prior [place] use per patient report Followed by Dr Arora Continue Sinemet at home doses Vitamin D deficiency (Acute) E55.9 Weakness (Acute) R53.1 He has been evaluated for this by Dr. Arora, was being treated with propranol 10 mg daily for a tremor but did not take it today. Dr. Estes to consult on pt. PT eval. Bipolar affective disorder (Chronic) Eating disorder (Chronic) F50.9 GERD (gastroesophageal reflux disease) (Chronic) K21.9 Hyperlipidemia (Chronic) E78.5 Hypertension (Chronic) I10 Home dose of losartan is 100mg Patient was mildly hypotensive at admission and complaining of dizziness Dose cut to 50mg, remains borderline hypotensive Recommend decreasing losartan further to 25mg Type 1 diabetes mellitus with diabetic retinopathy (Chronic) E10.319 Type I diabetes mellitus (Chronic) Difficult to manage DM and anorexia. Will give 12 U Lantus BID instead of his usual 20 bid. Lispro by SS. Uncontrolled type 1 diabetes mellitus with diabetic peripheral neuropathy ( Chronic) E10.42, E10.65 Current Medications: Current Medications Acetaminophen/Butalbital/Caffeine (Fioricet Tab*) 1 tab PO Q4H PRN PRN Reason: PAIN Last Admin: 02/27/17 01:44 Dose: 1 tab Carbidopa/Levodopa (Sinemet 25/100 Tab(*)) 1 tab PO TID [facility] Last Admin: 02/26/17 16:46 Dose: 1 tab Clonazepam (Klonopin Tab(*)) 1 mg PO BEDTIME [facility] Last Admin: 02/26/17 21:05 Dose: 1 mg Dextrose (D50w Syringe 50 Ml*) 12.5 gm IV PUSH .FOR FS < 60 - SS PRN PRN Reason: FS < 60 Docusate Sodium (Colace Cap*) 100 mg PO QPM [facility] Last Admin: 02/26/17 16:46 Dose: 100 mg Insulin Glargine (Lantus(*)) 20 units SUBCUT Q12H [facility] Last Admin: 02/26/17 21:05 Dose: 20 units Insulin Human Lispro (Humalog*) 0 units SUBCUT [facility] PRN Reason: Protocol Last Admin: 02/26/17 20:47 Dose: Not Given Insulin Human Lispro (Humalog*) 1 units SUBCUT [facility] Last Admin: 02/26/17 18:29 Dose: 7 units Lorazepam (Ativan Tab(*)) 0.5 mg PO Q4H PRN PRN Reason: ANXIETY Last Admin: 02/26/17 10:08 Dose: 0.5 mg Omeprazole (Prilosec Cap*) 20 mg PO DAILY@0730 [facility] Last Admin: 02/26/17 07:19 Dose: 20 mg Oxycodone/Acetaminophen (Percocet 5/325 Tab*) 1 tab PO Q6H PRN PRN Reason: PAIN - Review of Systems Constitutional Symptoms: Yes: Weight Loss, Weakness, Fatigue, No: Fever, Night Sweats Dermatology: Rash: No Eyes: Negative: Change in Vision Pulmonary: Negative: Cough, Sputum, Respiratory Distress Cardiology: Negative: Chest Pain, Palpitations, Swelling of Ankles Gastroenterology: Positive: Anorexia - He has problems eating - he acknowledges the psychological component, Constipation Negative: Abdominal Pain, Nausea, Vomiting, Difficulty Swallowing Genital - Urinary: Negative: Dysuria, Polyuria Neurology: Positive: Other - Parkinsonism Negative: Headache, Change in Vision Home Medications: Home Medications Medication Instructions Recorded Confirmed Type clonazePAM TAB(*) [Klonopin TAB(*)] 1 mg PO BEDTIME 07/07/13 02/22/17 History Insulin Lispro [Humalog] 0 unit SC AC 05/25/16 02/22/17 History Docusate CAP* [Colace Cap*] 200 mg PO QPM 02/22/17 02/22/17 History Insulin Detemir (NF) [Levemir (NF)] 22 unit SUBCUT BID MDD 90 units 02/22/17 History Klonopin TAB(*) 1 mg PO Q6HR PRN 02/22/17 02/23/17 History Losartan TAB* [Cozaar TAB*] 100 mg PO DAILY 02/22/17 02/22/17 History Omeprazole CAP* [Prilosec CAP* 20 20 mg PO BEDTIME 02/22/17 02/22/17 History MG] Simvastatin TAB(NF) [Zocor(NF)] 10 mg PO BEDTIME 02/22/17 02/22/17 History Allergies: Allergies Allergy/AdvReac Type Severity Reaction Status Date / Time Penicillins Allergy Severe Rash Verified 05/25/16 11:21 Gabapentin Allergy Rash Verified 05/25/16 11:21 - Social History Living Situation: He is due to move to [place] [address] housing at [facility] this coming Monday Objective - Vital Signs Vital Signs: Vital Signs 02/26/17 02/26/17 02/26/17 08:00 10:08 11:40 Temperature Pulse Rate Respiratory 22 18 20 Rate Blood Pressure (mmHg) O2 Sat by Pulse Oximetry 02/26/17 02/26/17 02/26/17 11:41 12:08 13:40 Temperature 98.2 F Pulse Rate 89 Respiratory 16 20 20 Rate Blood Pressure 105/91 (mmHg) O2 Sat by Pulse 99 Oximetry 02/26/17 02/26/17 02/26/17 15:38 16:20 17:17 Temperature 97.9 F Pulse Rate 78 Respiratory 16 18 20 Rate Blood Pressure 109/74 (mmHg) O2 Sat by Pulse 97 Oximetry 02/26/17 02/26/17 02/26/17 19:52 21:04 21:05 Temperature 98.3 F Pulse Rate 76 Respiratory 20 16 16 Rate Blood Pressure 112/67 (mmHg) O2 Sat by Pulse 98 Oximetry 02/26/17 02/26/17 02/26/17 21:10 23:04 23:05 Temperature Pulse Rate Respiratory 16 16 16 Rate Blood Pressure (mmHg) O2 Sat by Pulse Oximetry 02/27/17 02/27/17 02/27/17 00:25 01:44 03:44 Temperature 97.4 F Pulse Rate 65 Respiratory 17 16 16 Rate Blood Pressure 84/51 (mmHg) O2 Sat by Pulse 97 Oximetry 02/27/17 03:45 Temperature 97.6 F Pulse Rate 65 Respiratory 17 Rate Blood Pressure 88/47 (mmHg) O2 Sat by Pulse 97 Oximetry - Intake and Output Intake and Output: Intake & Output 02/24/17 02/25/17 02/26/17 02/27/17 11:59 11:59 11:59 11:59 Intake Total 1530 1250 360 Output Total 0 0 0 Balance 1530 1250 360 Weight 139 lb 14.4 oz Intake: IV Fluids 20 10 0 NS (0.9%) 20 10 0 Oral 1510 1240 360 Output: Urine 0 0 0 Other: Estimated Void Medium Medium # Bowel Movements 0 0 0 Estimated Stool Amount Medium # Voids 1 0 1 ADLs: Meal Record Start: 02/22/17 19: 49 Freq: DAILY@0900,1400,1800 Status: Active Document 02/23/17 14:00 [id number] (Rec: 02/23/17 14:32 [id number] MED-C09) Document 02/23/17 18:00 [id number] (Rec: 02/23/17 20:56 [id number] MED-C11) Document 02/24/17 08:15 [id number] (Rec: 02/24/17 08:15 [id number] MED-C11) Document 02/24/17 14:00 [id number] (Rec: 02/24/17 14:24 [id number] MED-C11) Document 02/24/17 18:00 [id number] (Rec: 02/24/17 18:35 [id number] MED-C11) Document 02/25/17 09:00 [id number] (Rec: 02/25/17 10:44 [id number] MED-C11) Document 02/25/17 14:00 [id number] (Rec: 02/25/17 14:52 [id number] MED-C11) Document 02/25/17 18:00 [id number] (Rec: 02/25/17 18:54 [id number] MED-C09) Document 02/26/17 09:00 [id number] (Rec: 02/26/17 11:15 [id number] MED-C11) Document 02/26/17 14:00 [id number] (Rec: 02/26/17 17:04 [id number] MED-C11) Document 02/26/17 18:00 [id number] (Rec: 02/26/17 18:36 [id number] MED-C11) Intake and Output Start: 02/22/17 19: 49 Freq: DAILY@0600,1400,2200 Status: Active Document 02/22/17 22:00 [id number] (Rec: 02/22/17 22:03 [id number] MEDL-C01) Document 02/23/17 06:00 [id number] (Rec: 02/23/17 06:33 [id number] MEDL-C02) Document 02/23/17 14:00 [id number] (Rec: 02/23/17 14:32 [id number] MED-C09) Document 02/23/17 22:00 [id number] (Rec: 02/23/17 22:40 [id number] MED-C11) Document 02/24/17 04:56 [id number] (Rec: 02/24/17 04:57 [id number] MEDL-C02) Document 02/24/17 14:00 [id number] (Rec: 02/24/17 14:24 [id number] MED-C11) Document 02/24/17 22:00 [id number] (Rec: 02/24/17 22:05 [id number] MED-C11) Document 02/24/17 22:08 [id number] (Rec: 02/24/17 22:09 [id number] MED-M17) Document 02/25/17 05:54 [id number] (Rec: 02/25/17 05:55 [id number] MED-C26) Document 02/25/17 14:00 [id number] (Rec: 02/25/17 14:52 [id number] MED-C11) Document 02/25/17 15:36 [id number] (Rec: 02/25/17 15:36 [id number] MED-C09) Document 02/25/17 17:55 [id number] (Rec: 02/25/17 17:55 [id number] MED-C11) Document 02/25/17 21:58 [id number] (Rec: 02/25/17 21:59 [id number] MEDL-C01) Document 02/26/17 04:55 [id number] (Rec: 02/26/17 04:56 [id number] MEDL-C01) Document 02/26/17 14:00 [id number] (Rec: 02/26/17 17:04 [id number] MED-C11) Document 02/27/17 05:14 [id number] (Rec: 02/27/17 05:14 [id number] MEDL-C01) - Physical Exam General Physical Exam Comment: Marked tardive dyskinesia with tremor, bradykinesia, poverty of facial expression, slow speech, increased tone. He had a pronounced resting tremor. He was able to get himself out of bed and walk to the door of his room independently with a walker. General: No Cyanosis, No Anemia, No Jaundice, No Clubbing Skin: Normal: Rash, Lesions Endocrine: No Central Obesity, No Buccal pigmenatation, No [place] Crease Pigmentation Lungs and Chest: Yes: Chest Expansion Full, Chest Expansion Symetrica, Percussion Note Resonant, Vessicular Breath Sounds. No: Crackles, Wheezes Heart Rate and Rhythm: Regular JVP: Not Elevated Additional Cardiovascular: Yes: Normal Heart Sounds. No: Heart Murmur, Pedal Edema Abdominal Exam: Yes: Soft, Bowel Sounds Present. No: Distention, Abdominal Mass , Abdominal Tenderness - Extremities Cranial Nerves II-XII Intact: Yes Limbs: Normal Coordination, Abnormal Power - generalized weakness, not focal, Abnormal Tone - increased - Neuro Orientation: A/O x3 Results - Results Lab Results: Laboratory Results - last 24 hr 02/26/17 02/26/17 02/26/17 07:06 07:06 07:28 Sodium Potassium Chloride Carbon Dioxide Anion Gap BUN Creatinine Est GFR ( Amer) Est GFR (Non-Af Amer) BUN/Creatinine Ratio Glucose POC Glucose (mg/dL) 79 Hemoglobin A1c 8.7 H Calcium Magnesium Prealbumin 24 02/26/17 02/26/17 02/26/17 11:39 16:46 20:44 Sodium Potassium Chloride Carbon Dioxide Anion Gap BUN Creatinine Est GFR ( Amer) Est GFR (Non-Af Amer) BUN/Creatinine Ratio Glucose POC Glucose (mg/dL) 350 H 262 H 117 H Hemoglobin A1c Calcium Magnesium Prealbumin 02/27/17 04:54 Sodium 137 Potassium 3.7 Chloride 106 Carbon Dioxide 27 Anion Gap 4 BUN 9 Creatinine 0.52 L Est GFR ( Amer) 217.2 Est GFR (Non-Af Amer) 168.9 BUN/Creatinine Ratio 17.3 Glucose 102 H POC Glucose (mg/dL) Hemoglobin A1c Calcium 9.4 Magnesium 1.8 L Prealbumin Assessment - Problem List Assessment: Patient Problems Hypotension (Acute) Parkinsonism (Acute) Vitamin D deficiency (Acute) Weakness (Acute) Bipolar affective disorder (Chronic) Eating disorder (Chronic) GERD (gastroesophageal reflux disease) (Chronic) Hyperlipidemia (Chronic) Hypertension (Chronic) Type 1 diabetes mellitus with diabetic retinopathy (Chronic) Type I diabetes mellitus (Chronic) Uncontrolled type 1 diabetes mellitus with diabetic peripheral neuropathy ( Chronic) Plan: Hypotension (Acute)/Parkinsonism (Acute)/Vitamin D deficiency (Acute)/Weakness ( Acute) He has had slow progression of Parkinsonism/tardive dyskinesia. He is on a therapeutic trial of sinemet. I examined him before his medication this morning. He was able to get himself out of bed and walk to the door of his room with a walker. He feels he needs greater strength in his legs prior to going home, but doesn't want to go to a SNF. I would like another day of assessment of his response to this sinemet. I would also like to determine if he has significant orthostatic hypotension and I will rule out adrenal insufficiency (more likely central as he doesn't have electrolyte abnormalities or problems with pigmentation) Bipolar affective disorder (Chronic) He states this is not a problem currently Eating disorder (Chronic) He acknowledges this problem and states he has had improve diet since being in the hospital GERD (gastroesophageal reflux disease) (Chronic) secondary diagnosis Hyperlipidemia (Chronic) secondary diagnosis Hypertension (Chronic) I will review this carefully Type 1 diabetes mellitus with diabetic retinopathy (Chronic) Type I diabetes mellitus (Chronic) Uncontrolled type 1 diabetes mellitus with diabetic peripheral neuropathy (Chronic)His glycemic control is currently on target - but he is at risk of hypoglycemia. I spoke to the patient about the above and he agrees with the management plan.
[2017-02-27] MEDS: Carbidopa/Levodop 25/100 MG TAB(*) PO SCH ×3 (08:20→17:58)
[2017-02-27] MEDS: Omeprazole CAP* 20 MG PO SCH (08:20)
[2017-02-27] MEDS: Insulin LISPRO* 1 UNITS UNIT SUBCUT SCH ×7 (08:29→22:23)
[2017-02-27] MEDS: Insulin GLARGINE(*) 1 UNITS UNIT SUBCUT SCH ×2 (08:37→22:22)
[2017-02-27] MEDS: LORazepam TAB(*) 0.5 MG PO PRN ×2 (08:38→15:30)
[2017-02-27 14:12] LABS: Vitamin A, S 39.2 mcg/dL (32.5-78.0)
[2017-02-27] MEDS: Docusate CAP* 100 MG PO SCH (17:58)
[2017-02-27] MEDS: clonazePAM TAB(*) 1 MG PO SCH (22:20)
--- NOTE | 2017-02-27 22:25 | PRO ---
PULMONARY FUNCTION TEST REPORT: DATE OF PROCEDURE: 02/24/17 CLINICAL INFORMATION: 51-year-old male with shortness of breath. REFERRING MD: Carina Sosa MD COMMENTS: Pulmonary function testing equipment was quality controlled. The patient was able to follow instructions and test fulfils criteria for acceptability and reproducibility. INTERPRETATION: Forced vital capacity is 4.81 L or 95% predicted. FEV1 is 2.97 L or 75% predicted. FEV1/FVC is 79% predicted. Flow volume loop is of poor technical quality. IMPRESSION: Spirometry suggestive of possible mild obstructive ventilatory defect. [id number]/CPS #: [id number] MTDD
[2017-02-28] MEDS: Carbidopa/Levodop 25/100 MG TAB(*) PO SCH ×4 (04:57→16:48)
[2017-02-28] MEDS: Butalb/Acetamin/Caff TAB* 1 TAB PO PRN ×4 (05:00→20:58)
[2017-02-28] MEDS: LORazepam TAB(*) 0.5 MG PO PRN (07:31)
--- NOTE | 2017-02-28 07:51 | PN ---
Subjective - Subjective Reason for Note: Progress Note History: He took his sinemet at 5 am this morning - 2.5 hours later he is very much better than when I saw him yesterday prior to taking the sinemet. He also notices a big difference. He has surprised himself with what he has been able to do - he didn't think he would be able to walk and was able to accomplish thisFor example he [place] around the [place] with his son. He managed a lot better with PT - this is corroborated in the PT note. His appetite is good, he is eating - notes he is being supervised and encouraged. He had orthostatic BPs measured and his BP increased on standing. He has much less pain and numbness in his legs. He has had a bowel movement. He wants another day in the hospital to consolidate these gains. He denies chest pain, dyspnea. His generalized weakness is improved. Active Problems: Active Problems Parkinsonism (Acute) G20 Presumed due to prior [place] use per patient report Followed by Dr Arora Continue Sinemet at home doses Weakness (Acute) R53.1 He has been evaluated for this by Dr. Arora, was being treated with propranol 10 mg daily for a tremor but did not take it today. Dr. Estes to consult on pt. PT eval. Bipolar affective disorder (Chronic) Eating disorder (Chronic) F50.9 GERD (gastroesophageal reflux disease) (Chronic) K21.9 Hyperlipidemia (Chronic) E78.5 Hypertension (Chronic) I10 Home dose of losartan is 100mg Patient was mildly hypotensive at admission and complaining of dizziness Dose cut to 50mg, remains borderline hypotensive Recommend decreasing losartan further to 25mg Type 1 diabetes mellitus with diabetic retinopathy (Chronic) E10.319 Type I diabetes mellitus (Chronic) Difficult to manage DM and anorexia. Will give 12 U Lantus BID instead of his usual 20 bid. Lispro by SS. Uncontrolled type 1 diabetes mellitus with diabetic peripheral neuropathy ( Chronic) E10.42, E10.65 Vitamin D deficiency (Chronic) E55.9 Current Medications: Current Medications Acetaminophen/Butalbital/Caffeine (Fioricet Tab*) 1 tab PO Q4H PRN PRN Reason: PAIN Last Admin: 02/28/17 05:00 Dose: 1 tab Carbidopa/Levodopa (Sinemet 25/100 Tab(*)) 1 tab PO TID [facility] Last Admin: 02/28/17 04:57 Dose: 1 tab Clonazepam (Klonopin Tab(*)) 1 mg PO BEDTIME [facility] Last Admin: 02/27/17 22:20 Dose: 1 mg Dextrose (D50w Syringe 50 Ml*) 12.5 gm IV PUSH .FOR FS < 60 - SS PRN PRN Reason: FS < 60 Docusate Sodium (Colace Cap*) 100 mg PO QPM [facility] Last Admin: 02/27/17 17:58 Dose: 100 mg Insulin Glargine (Lantus(*)) 20 units SUBCUT Q12H [facility] Last Admin: 02/27/17 22:22 Dose: 20 units Insulin Human Lispro (Humalog*) 0 units SUBCUT [facility] PRN Reason: Protocol Last Admin: 02/27/17 22:23 Dose: 1 units Insulin Human Lispro (Humalog*) 1 units SUBCUT [facility] Last Admin: 02/27/17 17:57 Dose: 3 units Lorazepam (Ativan Tab(*)) 0.5 mg PO Q4H PRN PRN Reason: ANXIETY Last Admin: 02/28/17 07:31 Dose: 0.5 mg Omeprazole (Prilosec Cap*) 20 mg PO DAILY@0730 [facility] Last Admin: 02/27/17 08:20 Dose: 20 mg Oxycodone/Acetaminophen (Percocet 5/325 Tab*) 1 tab PO Q6H PRN PRN Reason: PAIN Home Medications: Home Medications Medication Instructions Recorded Confirmed Type clonazePAM TAB(*) [Klonopin TAB(*)] 1 mg PO BEDTIME 07/07/13 02/22/17 History Insulin Lispro [Humalog] 0 unit SC AC 05/25/16 02/22/17 History Docusate CAP* [Colace Cap*] 200 mg PO QPM 02/22/17 02/22/17 History Insulin Detemir (NF) [Levemir (NF)] 22 unit SUBCUT BID MDD 90 units 02/22/17 History Klonopin TAB(*) 1 mg PO Q6HR PRN 02/22/17 02/23/17 History Losartan TAB* [Cozaar TAB*] 100 mg PO DAILY 02/22/17 02/22/17 History Omeprazole CAP* [Prilosec CAP* 20 20 mg PO BEDTIME 02/22/17 02/22/17 History MG] Simvastatin TAB(NF) [Zocor(NF)] 10 mg PO BEDTIME 02/22/17 02/22/17 History Allergies: Allergies Allergy/AdvReac Type Severity Reaction Status Date / Time Penicillins Allergy Severe Rash Verified 05/25/16 11:21 Gabapentin Allergy Rash Verified 05/25/16 11:21 - Social History Living Situation: He is due to move to [place] [address] [facility] this coming Monday Objective - Vital Signs Vital Signs: Vital Signs 02/27/17 02/27/17 02/27/17 08:00 08:08 08:21 Temperature 98.1 F Pulse Rate 78 Respiratory 16 18 16 Rate Blood Pressure 108/76 (mmHg) O2 Sat by Pulse 100 Oximetry 02/27/17 02/27/17 02/27/17 08:38 10:21 10:38 Temperature Pulse Rate Respiratory 16 16 16 Rate Blood Pressure (mmHg) O2 Sat by Pulse Oximetry 02/27/17 02/27/17 02/27/17 11:15 12:31 12:32 Temperature 98.0 F Pulse Rate 82 76 80 Respiratory 16 Rate Blood Pressure 116/74 103/69 108/71 (mmHg) O2 Sat by Pulse 100 Oximetry 02/27/17 02/27/17 02/27/17 12:34 15:30 15:45 Temperature 97.6 F Pulse Rate 90 81 Respiratory 16 16 Rate Blood Pressure 115/91 121/78 (mmHg) O2 Sat by Pulse 98 Oximetry 02/27/17 02/27/17 02/27/17 17:30 20:00 20:06 Temperature 97.5 F Pulse Rate 75 Respiratory 16 16 20 Rate Blood Pressure 124/71 (mmHg) O2 Sat by Pulse 100 Oximetry 02/27/17 02/27/17 02/27/17 20:32 22:20 22:32 Temperature Pulse Rate Respiratory 16 16 16 Rate Blood Pressure (mmHg) O2 Sat by Pulse Oximetry 02/27/17 02/28/17 02/28/17 23:17 00:20 03:35 Temperature 97.6 F 97.3 F Pulse Rate 68 73 Respiratory 16 16 16 Rate Blood Pressure 94/52 110/64 (mmHg) O2 Sat by Pulse 97 96 Oximetry 02/28/17 02/28/17 02/28/17 05:00 07:00 07:21 Temperature 97.5 F Pulse Rate 65 Respiratory 14 16 16 Rate Blood Pressure 94/59 (mmHg) O2 Sat by Pulse 99 Oximetry 02/28/17 02/28/17 07:31 07:39 Temperature Pulse Rate Respiratory 16 16 Rate Blood Pressure (mmHg) O2 Sat by Pulse Oximetry - Intake and Output Intake and Output: Intake & Output 02/25/17 02/26/17 02/27/17 02/28/17 11:59 11:59 11:59 11:59 Intake Total 1530 4265 697 1504 Output Total 0 0 0 0 Balance 1530 4180 159 0347 Weight 139 lb 14.4 oz 139 lb 11.2 oz Intake: IV Fluids 20 10 0 NS (0.9%) 20 10 0 Oral 1510 2622 013 4536 Output: Urine 0 0 0 0 Other: Estimated Void Medium Medium # Bowel Movements 0 0 0 0 Estimated Stool Amount Medium # Voids 1 0 1 ADLs: Meal Record Start: 02/22/17 19: 49 Freq: DAILY@0900,1400,1800 Status: Active Document 02/23/17 14:00 [id number] (Rec: 02/23/17 14:32 [id number] MED-C09) Document 02/23/17 18:00 [id number] (Rec: 02/23/17 20:56 [id number] MED-C11) Document 02/24/17 08:15 [id number] (Rec: 02/24/17 08:15 [id number] MED-C11) Document 02/24/17 14:00 [id number] (Rec: 02/24/17 14:24 [id number] MED-C11) Document 02/24/17 18:00 [id number] (Rec: 02/24/17 18:35 [id number] MED-C11) Document 02/25/17 09:00 [id number] (Rec: 02/25/17 10:44 [id number] MED-C11) Document 02/25/17 14:00 [id number] (Rec: 02/25/17 14:52 [id number] MED-C11) Document 02/25/17 18:00 [id number] (Rec: 02/25/17 18:54 [id number] MED-C09) Document 02/26/17 09:00 [id number] (Rec: 02/26/17 11:15 [id number] MED-C11) Document 02/26/17 14:00 [id number] (Rec: 02/26/17 17:04 [id number] MED-C11) Document 02/26/17 18:00 [id number] (Rec: 02/26/17 18:36 [id number] MED-C11) Document 02/27/17 13:42 [id number] (Rec: 02/27/17 13:42 [id number] MED-C11) Intake and Output Start: 02/22/17 19: 49 Freq: DAILY@0600,1400,2200 Status: Active Document 02/22/17 22:00 [id number] (Rec: 02/22/17 22:03 [id number] MEDL-C01) Document 02/23/17 06:00 [id number] (Rec: 02/23/17 06:33 [id number] MEDL-C02) Document 02/23/17 14:00 [id number] (Rec: 02/23/17 14:32 [id number] MED-C09) Document 02/23/17 22:00 [id number] (Rec: 02/23/17 22:40 [id number] MED-C11) Document 02/24/17 04:56 [id number] (Rec: 02/24/17 04:57 [id number] MEDL-C02) Document 02/24/17 14:00 [id number] (Rec: 02/24/17 14:24 [id number] MED-C11) Document 02/24/17 22:00 [id number] (Rec: 02/24/17 22:05 [id number] MED-C11) Document 02/24/17 22:08 [id number] (Rec: 02/24/17 22:09 [id number] MED-M17) Document 02/25/17 05:54 [id number] (Rec: 02/25/17 05:55 RBY0528 MED-C26) Document 02/25/17 14:00 [id number] (Rec: 02/25/17 14:52 [id number] MED-C11) Document 02/25/17 15:36 [id number] (Rec: 02/25/17 15:36 [id number] MED-C09) Document 02/25/17 17:55 [id number] (Rec: 02/25/17 17:55 [id number] MED-C11) Document 02/25/17 21:58 [id number] (Rec: 02/25/17 21:59 [id number] MEDL-C01) Document 02/26/17 04:55 [id number] (Rec: 02/26/17 04:56 [id number] MEDL-C01) Document 02/26/17 14:00 [id number] (Rec: 02/26/17 17:04 [id number] MED-C11) Document 02/27/17 05:14 [id number] (Rec: 02/27/17 05:14 [id number] MEDL-C01) Document 02/27/17 14:00 [id number] (Rec: 02/27/17 14:30 [id number] MED-C11) Document 02/27/17 22:00 [id number] (Rec: 02/27/17 22:10 [id number] MED-C09) Document 02/28/17 06:00 [id number] (Rec: 02/28/17 06:48 [id number] MED-C42) - Physical Exam General: No Cyanosis, No Anemia, No Jaundice, No Clubbing Lungs and Chest: Yes: Chest Expansion Full, Chest Expansion Symetrica, Percussion Note Resonant, Vessicular Breath Sounds. No: Crackles, Wheezes Heart Rate and Rhythm: Regular JVP: Not Elevated Additional Cardiovascular: Yes: Normal Heart Sounds. No: Heart Murmur, Pedal Edema Abdominal Exam: Yes: Soft, Bowel Sounds Present. No: Abdominal Tenderness - Extremities Cranial Nerves II-XII Intact: Yes Limbs: Normal Power, Normal Tone - Much improved - no cogwheel rigidity - Neuro Orientation: A/O x3 Speech: Normal Results - Results Lab Results: Laboratory Results - last 24 hr 02/27/17 02/27/17 02/27/17 04:52 08:25 12:32 POC Glucose (mg/dL) 80 250 H Cortisol 17.09 02/27/17 02/27/17 16:23 22:07 POC Glucose (mg/dL) 342 H 184 H Cortisol Assessment - Problem List Assessment: Patient Problems Parkinsonism (Acute) Weakness (Acute) Bipolar affective disorder (Chronic) Eating disorder (Chronic) GERD (gastroesophageal reflux disease) (Chronic) Hyperlipidemia (Chronic) Hypertension (Chronic) Type 1 diabetes mellitus with diabetic retinopathy (Chronic) Type I diabetes mellitus (Chronic) Uncontrolled type 1 diabetes mellitus with diabetic peripheral neuropathy ( Chronic) Vitamin D deficiency (Chronic) Plan: Parkinsonism (Acute)/Weakness (Acute) He has had major benefit from the sinemet and is managing to walk confidently around the [place] with a walker. He needs another day of PT and I think he will be safe to discharge tomorrow Bipolar affective disorder (Chronic) His mood is stable Eating disorder (Chronic) He is eating in this structured environment - I am concerned about his diet when he is discharged GERD (gastroesophageal reflux disease) (Chronic) secondary diagnosis Hyperlipidemia (Chronic) secondary diagnosis Hypertension (Chronic) inactive Type 1 diabetes mellitus with diabetic retinopathy (Chronic)Type I diabetes mellitus (Chronic)Uncontrolled type 1 diabetes mellitus with diabetic peripheral neuropathy (Chronic) His glucose is higher during the day as he is eating more. I am not going to increase his insulin, though I will adjust it once he is at home on a more usual regiment Vitamin D deficiency (Chronic) He is benefiting from replacement I discussed the above with the patient and he is going to be ready for discharge tomorrow
[2017-02-28] MEDS: Insulin LISPRO* 1 UNITS UNIT SUBCUT SCH ×7 (08:53→21:10)
[2017-02-28] MEDS: Omeprazole CAP* 20 MG PO SCH (08:53)
[2017-02-28] MEDS: Insulin GLARGINE(*) 1 UNITS UNIT SUBCUT SCH ×2 (08:54→20:59)
[2017-02-28 10:12] LABS: Acylcarn/Free Carnitine Ratio 0.7 (0.1-0.8); Vitamin E 9.9 mg/L (5.5 - 17.0)
[2017-02-28] MEDS: Docusate CAP* 100 MG PO SCH (17:41)
[2017-02-28] MEDS: clonazePAM TAB(*) 1 MG PO SCH (20:57)
[2017-03-01] MEDS: Butalb/Acetamin/Caff TAB* 1 TAB PO PRN (06:10)
--- NOTE | 2017-03-01 07:24 | PN ---
Subjective - Subjective Reason for Note: Discharge Note History: Discharge progress note - see dictated summary He continues to make progress with his sinemet - PT report positive. No chest pain/dyspnea Pain in legs improved Active Problems: Active Problems Parkinsonism (Acute) G20 Presumed due to prior [place] use per patient report Followed by Dr Arora Continue Sinemet at home doses Weakness (Acute) R53.1 He has been evaluated for this by Dr. Arora, was being treated with propranol 10 mg daily for a tremor but did not take it today. Dr. Estes to consult on pt. PT eval. Bipolar affective disorder (Chronic) Eating disorder (Chronic) F50.9 GERD (gastroesophageal reflux disease) (Chronic) K21.9 Hyperlipidemia (Chronic) E78.5 Hypertension (Chronic) I10 Home dose of losartan is 100mg Patient was mildly hypotensive at admission and complaining of dizziness Dose cut to 50mg, remains borderline hypotensive Recommend decreasing losartan further to 25mg Type 1 diabetes mellitus with diabetic retinopathy (Chronic) E10.319 Type I diabetes mellitus (Chronic) Difficult to manage DM and anorexia. Will give 12 U Lantus BID instead of his usual 20 bid. Lispro by SS. Uncontrolled type 1 diabetes mellitus with diabetic peripheral neuropathy ( Chronic) E10.42, E10.65 Vitamin D deficiency (Chronic) E55.9 Current Medications: Current Medications Acetaminophen/Butalbital/Caffeine (Fioricet Tab*) 1 tab PO Q4H PRN PRN Reason: PAIN Last Admin: 03/01/17 06:10 Dose: 1 tab Carbidopa/Levodopa (Sinemet 25/100 Tab(*)) 1 tab PO TID AC [facility] Last Admin: 02/28/17 16:48 Dose: 1 tab Clonazepam (Klonopin Tab(*)) 1 mg PO BEDTIME [facility] Last Admin: 02/28/17 20:57 Dose: 1 mg Dextrose (D50w Syringe 50 Ml*) 12.5 gm IV PUSH .FOR FS < 60 - SS PRN PRN Reason: FS < 60 Docusate Sodium (Colace Cap*) 100 mg PO QPM [facility] Last Admin: 02/28/17 17:41 Dose: 100 mg Insulin Glargine (Lantus(*)) 20 units SUBCUT Q12H [facility] Last Admin: 02/28/17 20:59 Dose: 20 units Insulin Human Lispro (Humalog*) 0 units SUBCUT ACHS [facility] PRN Reason: Protocol Last Admin: 02/28/17 21:10 Dose: 1 units Insulin Human Lispro (Humalog*) 1 units SUBCUT AC [facility] Last Admin: 02/28/17 17:40 Dose: 5 units Lorazepam (Ativan Tab(*)) 0.5 mg PO Q4H PRN PRN Reason: ANXIETY Last Admin: 02/28/17 07:31 Dose: 0.5 mg Omeprazole (Prilosec Cap*) 20 mg PO DAILY@0730 [facility] Last Admin: 02/28/17 08:53 Dose: 20 mg Oxycodone/Acetaminophen (Percocet 5/325 Tab*) 1 tab PO Q6H PRN PRN Reason: PAIN Home Medications: Home Medications Medication Instructions Recorded Confirmed Type clonazePAM TAB(*) [Klonopin TAB(*)] 1 mg PO BEDTIME 07/07/13 02/22/17 History Insulin Lispro [Humalog] 0 unit SC AC 05/25/16 02/22/17 History Docusate CAP* [Colace Cap*] 200 mg PO QPM 02/22/17 02/22/17 History Insulin Detemir (NF) [Levemir (NF)] 22 unit SUBCUT BID MDD 90 units 02/22/17 History Klonopin TAB(*) 1 mg PO Q6HR PRN 02/22/17 02/23/17 History Losartan TAB* [Cozaar TAB*] 100 mg PO DAILY 02/22/17 02/22/17 History Omeprazole CAP* [Prilosec CAP* 20 20 mg PO BEDTIME 02/22/17 02/22/17 History MG] Simvastatin TAB(NF) [Zocor(NF)] 10 mg PO BEDTIME 02/22/17 02/22/17 History Allergies: Allergies Allergy/AdvReac Type Severity Reaction Status Date / Time Penicillins Allergy Severe Rash Verified 05/25/16 11:21 Gabapentin Allergy Rash Verified 05/25/16 11:21 - Social History Living Situation: He is due to move to [place] [id number] housing at [place] this coming Monday Objective - Vital Signs Vital Signs: Vital Signs 02/28/17 02/28/17 02/28/17 07:31 07:39 09:31 Temperature Pulse Rate Respiratory 16 16 16 Rate Blood Pressure (mmHg) O2 Sat by Pulse Oximetry 02/28/17 02/28/17 02/28/17 11:10 11:39 13:10 Temperature 97.6 F Pulse Rate 83 Respiratory 16 17 16 Rate Blood Pressure 110/63 (mmHg) O2 Sat by Pulse 99 Oximetry 02/28/17 02/28/17 02/28/17 15:15 15:40 17:15 Temperature 98.0 F Pulse Rate 70 Respiratory 16 16 16 Rate Blood Pressure 93/56 (mmHg) O2 Sat by Pulse 98 Oximetry 02/28/17 02/28/17 02/28/17 19:40 20:00 20:57 Temperature 98.1 F Pulse Rate 74 Respiratory 18 18 15 Rate Blood Pressure 105/61 (mmHg) O2 Sat by Pulse 98 Oximetry 02/28/17 02/28/17 02/28/17 20:58 22:57 22:58 Temperature Pulse Rate Respiratory 15 16 16 Rate Blood Pressure (mmHg) O2 Sat by Pulse Oximetry 02/28/17 03/01/17 03/01/17 23:21 03:22 06:10 Temperature 97.4 F 97.4 F Pulse Rate 70 72 Respiratory 16 16 15 Rate Blood Pressure 98/57 97/59 (mmHg) O2 Sat by Pulse 97 96 Oximetry - Intake and Output Intake and Output: Intake & Output 02/26/17 02/27/17 02/28/17 03/01/17 11:59 11:59 11:59 11:59 Intake Total 6020 518 8226 790 Output Total 0 0 0 Balance 6299 038 0105 790 Weight 139 lb 11.2 oz 142 lb 1.6 oz Intake: IV Fluids 10 0 NS (0.9%) 10 0 Oral 7474 706 9581 790 Output: Urine 0 0 0 Other: Estimated Void Medium Medium Medium Large # Bowel Movements 0 0 0 Estimated Stool Amount Medium # Voids 0 1 1 1 ADLs: Meal Record Start: 02/22/17 19: 49 Freq: DAILY@0900,1400,1800 Status: Active Document 02/23/17 14:00 [id number] (Rec: 02/23/17 14:32 [id number] MED-C09) Document 02/23/17 18:00 [id number] (Rec: 02/23/17 20:56 [id number] MED-C11) Document 02/24/17 08:15 [id number] (Rec: 02/24/17 08:15 [id number] MED-C11) Document 02/24/17 14:00 [id number] (Rec: 02/24/17 14:24 [id number] MED-C11) Document 02/24/17 18:00 [id number] (Rec: 02/24/17 18:35 [id number] MED-C11) Document 02/25/17 09:00 [id number] (Rec: 02/25/17 10:44 [id number] MED-C11) Document 02/25/17 14:00 [id number] (Rec: 02/25/17 14:52 [id number] MED-C11) Document 02/25/17 18:00 [id number] (Rec: 02/25/17 18:54 [id number] MED-C09) Document 02/26/17 09:00 [id number] (Rec: 02/26/17 11:15 [id number] MED-C11) Document 02/26/17 14:00 [id number] (Rec: 02/26/17 17:04 [id number] MED-C11) Document 02/26/17 18:00 [id number] (Rec: 02/26/17 18:36 [id number] MED-C11) Document 02/27/17 13:42 [id number] (Rec: 02/27/17 13:42 [id number] MED-C11) Document 02/28/17 09:00 [id number] (Rec: 02/28/17 10:30 [id number] MED-C11) Document 02/28/17 13:58 [id number] (Rec: 02/28/17 13:58 [id number] MED-C11) Document 02/28/17 18:00 [id number] (Rec: 02/28/17 19:09 [id number] MED-C11) Intake and Output Start: 02/22/17 19: 49 Freq: DAILY@0600,1400,2200 Status: Active Document 02/22/17 22:00 [id number] (Rec: 02/22/17 22:03 [id number] MEDL-C01) Document 02/23/17 06:00 [id number] (Rec: 02/23/17 06:33 RSI0185 MEDL-C02) Document 02/23/17 14:00 [id number] (Rec: 02/23/17 14:32 [id number] MED-C09) Document 02/23/17 22:00 [id number] (Rec: 02/23/17 22:40 [id number] MED-C11) Document 02/24/17 04:56 [id number] (Rec: 02/24/17 04:57 [id number] MEDL-C02) Document 02/24/17 14:00 [id number] (Rec: 02/24/17 14:24 [id number] MED-C11) Document 02/24/17 22:00 [id number] (Rec: 02/24/17 22:05 [id number] MED-C11) Document 02/24/17 22:08 [id number] (Rec: 02/24/17 22:09 [id number] MED-M17) Document 02/25/17 05:54 [id number] (Rec: 02/25/17 05:55 [id number] MED-C26) Document 02/25/17 14:00 [id number] (Rec: 02/25/17 14:52 [id number] MED-C11) Document 02/25/17 15:36 [id number] (Rec: 02/25/17 15:36 [id number] MED-C09) Document 02/25/17 17:55 [id number] (Rec: 02/25/17 17:55 [id number] MED-C11) Document 02/25/17 21:58 [id number] (Rec: 02/25/17 21:59 [id number] MEDL-C01) Document 02/26/17 04:55 [id number] (Rec: 02/26/17 04:56 [id number] MEDL-C01) Document 02/26/17 14:00 [id number] (Rec: 02/26/17 17:04 [id number] MED-C11) Document 02/27/17 05:14 [id number] (Rec: 02/27/17 05:14 [id number] MEDL-C01) Document 02/27/17 14:00 [id number] (Rec: 02/27/17 14:30 [id number] MED-C11) Document 02/27/17 22:00 [id number] (Rec: 02/27/17 22:10 [id number] MED-C09) Document 02/28/17 06:00 [id number] (Rec: 02/28/17 06:48 [id number] MED-C42) Document 02/28/17 12:58 [id number] (Rec: 02/28/17 12:58 [id number] MED-C11) Document 02/28/17 21:26 [id number] (Rec: 02/28/17 21:26 [id number] MED-C09) Document 03/01/17 05:39 [id number] (Rec: 03/01/17 05:39 [id number] MED-C42) - Physical Exam General Physical Exam Comment: He has yet to take his sinemet - severe parkinsonism General: No Cyanosis, No Anemia, No Jaundice, No Clubbing Lungs and Chest: Yes: Chest Expansion Full, Chest Expansion Symetrica, Percussion Note Resonant, Vessicular Breath Sounds. No: Crackles, Wheezes Heart Rate and Rhythm: Regular JVP: Not Elevated Additional Cardiovascular: Yes: Normal Heart Sounds. No: Heart Murmur, Pedal Edema Abdominal Exam: Yes: Soft, Bowel Sounds Present. No: Distention, Abdominal Tenderness - Extremities Cranial Nerves II-XII Intact: Yes Limbs: Normal Power, Normal Tone, Normal Coordination - Neuro Orientation: A/O x3 Speech: Normal Results - Results Lab Results: Laboratory Results - last 24 hr 02/28/17 02/28/17 02/28/17 07:34 12:33 16:50 POC Glucose (mg/dL) 252 H 375 H 242 H 02/28/17 20:46 POC Glucose (mg/dL) 188 H Assessment - Problem List Assessment: Patient Problems Parkinsonism (Acute) Weakness (Acute) Bipolar affective disorder (Chronic) Eating disorder (Chronic) GERD (gastroesophageal reflux disease) (Chronic) Hyperlipidemia (Chronic) Hypertension (Chronic) Type 1 diabetes mellitus with diabetic retinopathy (Chronic) Type I diabetes mellitus (Chronic) Uncontrolled type 1 diabetes mellitus with diabetic peripheral neuropathy ( Chronic) Vitamin D deficiency (Chronic) Plan: He is much improved re: mobility/stability with a rolling walker plus sinemet. He will require further PT as an outpatient. He is ready for discharge.
[2017-03-01] MEDS: Insulin GLARGINE(*) 1 UNITS UNIT SUBCUT SCH (08:41)
[2017-03-01] MEDS: Carbidopa/Levodop 25/100 MG TAB(*) PO SCH ×2 (08:41→11:51)
[2017-03-01] MEDS: Insulin LISPRO* 1 UNITS UNIT SUBCUT SCH ×4 (08:41→12:56)
[2017-03-01] MEDS: Omeprazole CAP* 20 MG PO SCH (08:41)
[2017-03-01] MEDS: LORazepam TAB(*) 0.5 MG PO PRN (09:40)
--- NOTE | 2017-03-01 10:57 | DS ---
CC: Dr. Shannan Arora * DISCHARGE SUMMARY: DATE OF ADMISSION: 02/22/17 DATE OF DISCHARGE: 03/01/17 DISCHARGE DIAGNOSES: 1. 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 2. Chest pain and shortness of breath. 3. Weakness, generalized leg pain, and numbness. 4. Eating disorder. SECONDARY DIAGNOSES: 1. Bipolar affective disorder. 2. Gastroesophageal reflux disease. 3. Hyperlipidemia. 4. Hypertension. 5. Type 1 diabetes with diabetic retinopathy and prior laser therapy, labile type 1 diabetes with poor control. 6. Vitamin D deficiency. HISTORY: Ray Perez is a 51-year-old right-handed white male. His presentation is documented in Jacob Jackman MD's, admitting history and physical. In short, he has had weakness of lower extremities for 15 months, much worse during the previous 2 days. Arms and legs felt numb, pain in his legs, not eating. He also has some chest pain and shortness of breath. PHYSICAL EXAMINATION: Anxious, but not in any hemodynamic distress. He was weak in all 4 extremities. INITIAL LAB WORK: CBC was within normal limits. INR 0.98, APTT 26.8. CMP within normal limits. CRP less than 1. Albumin 4.3. TSH less than 0.47. Lipase less than 10. Ketones 1+, 3+ glucose. His glucose on admission was 241 mg/dL, bicarbonate was 27, lactic acid 1.2. INITIAL IMPRESSION: Weakness was being evaluated by Dr. Arora who has treated him with 10 mg of propranolol per day and neurological consultation was sought. Type 1 diabetes was poorly controlled with his anorexia. Dr. Jackman did not think he was depressed. INVESTIGATIONS: On 02/22/17 chest x-ray, no active disease. A 12-lead EKG, rate 90, MO interval 120, QTc 429, QRS axis 83, normal sinus rhythm, early repolarization pattern. On 02/23/17 transthoracic echocardiogram, left ventricular chamber size normal, mild concentric LVH, ejection fraction 65%, no valvular abnormalities. Nuclear medicine cardiac stress test, negative myocardial examination. Pulmonary function test that was reported by Dr. Bettie Ibanez, spirometry suggestive of possible mild obstructive ventilatory defect. OTHER LABORATORY DATA: Vitamin E 9.9, folate greater than 20, B12 592, intact PTH 5.4, calcium 9.1. Total carnitine 25, free carnitine 15. Vitamin B1 39.2. Troponin I 0. Magnesium 1.8. Ferritin 81. Normal iron panel. Phosphorous 2.7 , 25-hydroxyvitamin D 19.2, cortisol 17. A1c 8.7%. CONSULTATIONS: Dr. Houston Estes on 02/23/17 and 02/24/[address] Luis Eduardo Curry 02/25/17, both for Neurology. The consultation notes are part of the medical record. He was evaluated for weakness. 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 They also discussed other possibilities such as diabetic peripheral neuropathy and much less likely Guillain-[place] syndrome. HOSPITAL COURSE: Ray Perez has had longstanding weakness, which has worsened; he has an eating disorder and has been loosing weight and strength. His parkinsonism has worsened. When he presented, he had leg pain, he also had some chest discomfort and shortness of breath. Investigations ruled out cardiopulmonary causes for his shortness of breath, which he acknowledges might be due to anxiety. The leg pain has improved once he was thought to vitamin D for his deficiency and also when he was started on Sinemet. He made good progress with Sinemet and received physical therapy during his hospital stay. He developed much great range of walking with a rolling walker. I observed him neurologically both before his dose and after his dose of Sinemet and there was a clear marked improvement in his tardive dyskinesia. On the day of discharge, he feels confidence about his discharge home. He will be moving home on Monday to [place]. He is excited about that. He has been eating consistently during his hospital stay and is going to try to do this and not to restrict his diet. His blood sugars as a result was slightly higher. He has had an improvement in his leg pain. He no longer had chest pain or shortness of breath. PHYSICAL EXAMINATION ON THE DAY OF DISCHARGE: Temperature 97.7, pulse 66, oxygen saturation 98%, blood pressure 103/68. He is warm and well perfused. No cyanosis, anemia, jaundice, clubbing, or lymphadenopathy. He has the signs of parkinsonism, which is marked. He has a resting tremor, poverty of facial expression, some slowness of speech. He has cogwheel rigidity. Cardiovascular System: Pulse is regular, normal character and volume. Venous pressure not elevated. Heart sounds are normal. No added sounds or murmurs. No pedal edema. Respiratory System: Chest was clear. Abdomen: No distention, masses, tenderness, or organomegaly. Bowel sounds are present. He had a bowel movement yesterday. Nervous System: As above. Cranial nerves II through XII are intact. He is alert and oriented x3. Arms and legs, full power, normal tone and coordination all muffed somewhat by his Parkinson's. ASSESSMENT AND PLAN: 1. Parkinsonism. I will titrate his Sinemet as an outpatient in coordination with Dr. Arora. I note that he has responded better to this drug than one might anticipate given the presumed diagnosis of neuroleptic-induced parkinsonism. There is imaging modality in [place], which can be used to differentiate between parkinsonism and Parkinson's disease. This may be of some therapeutic interest and I leave this to Dr. Arora. He will continue with physical therapy as an outpatient as recommended. We will look into other medications that are used in Parkinson's disease to see whether they work empirically. 2. Type 1 diabetes mellitus, out of control. He is eating better in the hospital. His blood sugars are higher particularly after his morning breakfast, which he does not usually eat. I will increase his Humalog insulin by 2 units with breakfast. 3. Bipolar affective disorder. This seems stable at the present time. He is neither hypomanic nor depressed. 4. Eating disorder. This is a major barrier for him. I note that his prealbumin was not decreased and his albumin was normal. He is going to attempt not to restrict on discharge. 5. Gastroesophageal reflux disease. Not a problem at present. 5. Hyperlipidemia. He should continue treatment for this. 6. Hypertension. He will continue on his medication. 7. Vitamin D deficiency. He will remain on vitamin D as an outpatient. DISCHARGE MEDICATIONS: 1. Carbidopa/levodopa 25/100 one tablet 3 times a day. 2. Clonazepam 1 mg at bedtime. 3. Lispro insulin as per usual carbohydrate counting. 4. Insulin detemir 22 units twice daily. 5. Simvastatin 10 mg q.h.s. 6. Omeprazole 20 mg daily. 7. Losartan 100 mg daily. 8. Docusate sodium 200 mg as needed. 9. Vitamin D 1000 units daily. [id number]/[facility] #: [id number] [facility]
[2017-03-01 14:01] VITALS: BP 99/66
== END 2017-03-01 13:50 | disposition home or self-care (01) | DRG 42 ==
LOC: ED 13:59 → MED 19:21 → OBSVTOIN 02-24 10:57 → INTOOBSV 02-24 10:57
PROVIDERS: ADMIT Internal Medicine; ATTEND Internal Medicine
DX: G21.11 Neuroleptic induced parkinsonism (principal); F50.00 Anorexia nervosa, unspecified; F31.9 Bipolar disorder, unspecified; K21.9 Gastro-esophageal reflux disease without esophagitis; E78.5 Hyperlipidemia, unspecified; I10 Essential (primary) hypertension; E10.319 Type 1 diabetes mellitus with unspecified diabetic retinopathy without macular edema; E55.9 Vitamin D deficiency, unspecified; J44.9 Chronic obstructive pulmonary disease, unspecified; Z88.0 Allergy status to penicillin; Z79.4 Long term (current) use of insulin; Z87.891 Personal history of nicotine dependence
CPT/HCPCS: 36415; 71010; 78452; 80048; 80053; 81003; 82306; 82379; 82525; 82533; 82550; 82553; 82607; 82728; 82746; 82947; 83036; 83540; 83550; 83605; 83690; 83735; 83874; 83880; 83970; 84100; 84134; 84425; 84443; 84446; 84484; 84590; 84630; 85025; 85610; 85730; 86038; 86140; 86235; 93005; 93017; 93306; 94010; A9270-GY; A9502; G8978-GP-CJ; G8979-GP-CH; J0280; J2785

== ENCOUNTER 2018-08-28 15:06 | Emergency (ER) | payer OTHER ==
--- NOTE | 2018-08-28 15:13 | UC ---
Hand/Wrist HPI - HPI Summary HPI Summary: 53 yo male presents accompanied by his son with blister to RIGHT index finger and LEFT middle finger. He tells me that he bites his nails a lot and over the last 5 days ago has developed redness, pain, and swelling to the right index finger near the nail and left middle finger near the nail. Over the last 2 days has had blisters appear overlying these areas. He tells me that he is seeing his PCP every 10 days for weight checks and adjustment of medications regarding his parkinson's and depression/eating disorder. He is scheduled to see his PCP tomorrow. Denies fever or chills. Denies injury to his fingers . - History Of Current Complaint Stated Complaint: FINGER INJURY Time Seen by Provider: 08/28/18 15:12 Hx Obtained From: Patient Onset/Duration: Gradual Onset Severity Initially: Moderate Severity Currently: Moderate Pain Intensity: 8 Pain Scale Used: 0-10 Numeric - Allergies/Home Medications Allergies/Adverse Reactions: Allergies Allergy/AdvReac Type Severity Reaction Status Date / Time gabapentin Allergy Rash Verified 08/28/18 15:21 Penicillins Allergy Rash Verified 08/28/18 15:21 Home Medications: Home Medications Diazepam TAB(*) [Valium TAB(*)] 5 mg PO DAILY 08/28/18 [History Confirmed ] Diazepam TAB(*) [Valium TAB(*)] 10 mg PO BEDTIME 08/28/18 [History Confirmed ] FLUoxetine CAP* [Prozac CAP*] 20 mg PO DAILY 08/28/18 [History Confirmed ] QUEtiapine TAB* [Seroquel 25 MG TAB*] 25 mg PO TID 08/28/18 [History Confirmed 08/28/18] PMH/Surg Hx/FS Hx/Imm Hx - Additional Past Medical History Additional PMH: Parkinson's Eating disorder Depression Endocrine History: Diabetes Psychological History: Anxiety, Depression - Surgical History Surgical History: Yes Surgery Procedure, Year, and Place: ROTATOR CUFF REPAIR RIGHT 2012 - Family History Known Family History: Positive: Other - depression - Social History Alcohol Use: None Substance Use Type: None Substance Use Comment - Amount & Last Used: klonopin Smoking Status (MU): Former Smoker Type: Cigarettes Have You Smoked in the Last Year: No When Did the Patient Quit Smoking/Using Tobacco: six years ago - Immunization History Most Recent Influenza Vaccination: received this season Most Recent Tetanus Shot: UTD Most Recent Pneumonia Vaccination: March 2015 Review of Systems All Other Systems Reviewed And Are Negative: Yes Constitutional: Positive: Negative Skin: Positive: Other - Redness, pain, swelling right index and left middle finger Respiratory: Positive: Negative Cardiovascular: Positive: Negative Neurovascular: Positive: Negative Neurological: Positive: Negative Psychological: Positive: Negative Physical Exam - Summary Physical Exam Summary: GENERAL: NAD. WDWN. No pain distress. SKIN: LEFT MIDDLE FINGER: redness, pain, and swelling with 2.0cm ecchymotic bullae at the ulnar aspect of the nail-skin fold with extending erythema down to the PIP. RIGHT INDEX FINGER: radial aspect of the nail-skin fold with 1.0cm ecchymotic bullae. NECK: Supple. Nontender. No lymphadenopathy. CHEST: No accessory muscle use. Breathing comfortably and in no distress. CV: Pulses intact. Cap refill <2seconds MSK: FROM left middle finger and right index finger MCP, PIP, and DIP NEURO: Alert. PSYCH: Age appropriate behavior. Triage Information Reviewed: Yes Vital Signs: Vital Signs: Temp Pulse Resp BP Pulse Ox 97.9 F 81 18 147/81 97 08/28/18 15:13 08/28/18 15:13 08/28/18 15:13 08/28/18 15:13 08/28/18 15:13 Vital Signs Reviewed: Yes Procedures - Incision and Drainage Left Finger Anesthesia: Other - None Instrument(s): Needle - 18G Packing: Other - None Right Finger Anesthesia: Other - None Instrument(s): Needle - 18G Packing: Other - None Hand/Wrist Course/Dx - Course Course Of Treatment: The procedure was explained to the pt and all questions were answered. A time out was performed, witnessed, and signed. The area was cleansed with an alcohol pad. An 18G needle was used to isa the proximal portion of each bullae and copious serosanguineous and thin yellow purulent matter was expressed. A culture was obtained and will be sent. Pt had significant relief of pain. The wound was bandaged with telfa. Pt tolerated procedure well. I suspect these bullae were from an underlying paronychia that progressed quickly likely due to his DM1 and other comorbid conditions. Will start him on keflex for infection and have him f/u with his PCP tomorrow as scheduled for a wound check. - Differential Dx/Diagnosis Provider Diagnosis: Paronychia of finger of left hand, Paronychia of finger of right hand Discharge - Sign-Out/Discharge Documenting (check all that apply): Patient Departure All imaging exams completed and their final reports reviewed: No Studies - Discharge Plan Condition: Stable Disposition: HOME Prescriptions: Cephalexin CAP* [Keflex CAP*] 500 mg PO BID #14 cap Patient Education Materials: Paronychia (ED) Referrals: Marcio Swenson MD [Primary Care Provider] - Additional Instructions: If you develop a fever, shortness of breath, chest pain, new or worsening symptoms - please call your PCP or go to the ED. Your blood pressure was high at todays visit. Please see your primary provider within 4 weeks for recheck and re-evaluation. Keep area covered until you can see your primary doctor tomorrow for a recheck - Billing Disposition and Condition Condition: STABLE Disposition: Home
[2018-08-28 15:20] VITALS: BP 147/81
--- NOTE | 2018-08-28 21:20 | UC ---
- Progress Note Progress Note: Lab called with MRSA and staph positive. Stop keflex and start Bactrim BID for 7 days Course/Dx - Diagnoses Provider Diagnoses: Paronychia of finger of left hand, Paronychia of finger of right hand Discharge - Sign-Out/Discharge Documenting (check all that apply): Post-Discharge Follow Up All imaging exams completed and their final reports reviewed: No Studies - Discharge Plan Condition: Stable Disposition: HOME Prescriptions: Cephalexin CAP* [Keflex CAP*] 500 mg PO BID #14 cap Sulfamethox/Trimethoprim DS* [Bactrim DS 800/160 TAB*] 1 tab PO BID #14 tab Patient Education Materials: Paronychia (ED) Referrals: Marcio Swenson MD [Primary Care Provider] - Additional Instructions: If you develop a fever, shortness of breath, chest pain, new or worsening symptoms - please call your PCP or go to the ED. Your blood pressure was high at todays visit. Please see your primary provider within 4 weeks for recheck and re-evaluation. Keep area covered until you can see your primary doctor tomorrow for a recheck - Billing Disposition and Condition Condition: STABLE Disposition: Home
--- NOTE | 2018-08-29 17:22 | UC ---
- Progress Note Progress Note: 08/29/2018 Wound culture returned positive for MRSA and Staph. Aureus Pt Rx Bactrim PO final sensitivity report still pending. No change Sloane Oviedo PA-C Course/Dx - Diagnoses Provider Diagnoses: Paronychia of finger of left hand, Paronychia of finger of right hand Discharge - Sign-Out/Discharge Documenting (check all that apply): Patient Departure - D/C home All imaging exams completed and their final reports reviewed: No Studies - Discharge Plan Condition: Stable Disposition: HOME Prescriptions: Cephalexin CAP* [Keflex CAP*] 500 mg PO BID #14 cap Sulfamethox/Trimethoprim DS* [Bactrim DS 800/160 TAB*] 1 tab PO BID #14 tab Patient Education Materials: Paronychia (ED) Referrals: Marcio Swenson MD [Primary Care Provider] - Additional Instructions: If you develop a fever, shortness of breath, chest pain, new or worsening symptoms - please call your PCP or go to the ED. Your blood pressure was high at todays visit. Please see your primary provider within 4 weeks for recheck and re-evaluation. Keep area covered until you can see your primary doctor tomorrow for a recheck - Billing Disposition and Condition Condition: STABLE Disposition: Home - Attestation Statements Provider Attestation: I was available for consult. This patient was seen by the SHELBY. The patient was not presented to, seen by, or examined by me. -Kelly
--- NOTE | 2018-08-30 15:12 | UC ---
- Progress Note Progress Note: Finger culture comes back from August 28, 2018 susceptibilities show it is susceptible to Bactrim and the patient is on Bactrim therefore no need to change antibiotic treatment at this time. Course/Dx - Diagnoses Provider Diagnoses: Paronychia of finger of left hand, Paronychia of finger of right hand Discharge - Sign-Out/Discharge Documenting (check all that apply): Patient Departure All imaging exams completed and their final reports reviewed: No Studies - Discharge Plan Condition: Stable Disposition: HOME Prescriptions: Cephalexin CAP* [Keflex CAP*] 500 mg PO BID #14 cap Sulfamethox/Trimethoprim DS* [Bactrim DS 800/160 TAB*] 1 tab PO BID #14 tab Patient Education Materials: Paronychia (ED) Referrals: Marcio Swenson MD [Primary Care Provider] - Additional Instructions: If you develop a fever, shortness of breath, chest pain, new or worsening symptoms - please call your PCP or go to the ED. Your blood pressure was high at todays visit. Please see your primary provider within 4 weeks for recheck and re-evaluation. Keep area covered until you can see your primary doctor tomorrow for a recheck - Billing Disposition and Condition Condition: STABLE Disposition: Home
== END 2018-08-28 16:22 | disposition home or self-care (01) ==
LOC: UCEAST 15:06
DX: L03.012 Cellulitis of left finger (principal); L03.011 Cellulitis of right finger; B95.62 Methicillin resistant Staphylococcus aureus infection as the cause of diseases classified elsewhere
CPT/HCPCS: 10060; 10140; 87070; 87077; 87186; 87205; 87640; 87641; 99203; G0463

== ENCOUNTER 2019-08-04 14:13 | Emergency (ER) | payer OTHER ==
--- NOTE | 2019-08-04 14:26 | ED ---
Neurological HPI - HPI Summary HPI Summary: 54 y/o male presented to [facility] by [facility] for weakness and tremors present KNIFER UP. He states that he feels weak to the point where he can't walk and feels numb. He endorses a cough but denies fever, rhinorrhea, sore throat, diarrhea, and burning while urinating. He has recently stopped taking some of his medications such as Prozac, and is trying to wean himself off of Diazepam ( 20mg/day originally to 15mg/day currently). Patient notes a history of Type 1 Diabetes for which he injects himself and anxiety. He also notes history of Parkinson's that has not yet been controlled and for which he sees Dr. Curry. He spends most of his time in bed or in a reclining chair. - History of Current Complaint Chief Complaint: EDPsychosocial Stated Complaint: SHAKINESS/ANXIETY PER EMS Time Seen by Provider: 08/04/19 14:17 Hx Obtained From: Patient Onset/Duration: Still Present Timing: Constant Current Severity: Severe Neurological Deficit Location: BILL HOUSER Pain Intensity: 10 Pain Scale Used: 0-10 Numeric Character: Weak Aggravating: Nothing Alleviating: Nothing Associated Signs and Symptoms: Positive: Weakness, Pain, Numbness. Negative: Fever, Diarrhea - Additional Pertinent History Primary Care Physician: [id number] - Allergy/Home Medications Allergies/Adverse Reactions: Allergies Allergy/AdvReac Type Severity Reaction Status Date / Time brexpiprazole [From Rexulti] Allergy See Comment Verified 08/04/19 14:26 gabapentin Allergy Rash Verified 08/04/19 14:25 lurasidone [From Latuda] Allergy Unknown Verified 08/04/19 14:26 Reaction Details Penicillins Allergy Rash Verified 08/04/19 14:25 Home Medications: Home Medications Carbidopa/Levodop 25/100 MG(*) [Sinemet 25/100 TAB(*)] 1 tab PO SEE INSTRUCTIONS 08/04/19 [History Confirmed 08/04/19] PMH/Surg Hx/FS Hx/Imm Hx Endocrine/Hematology History: Reports: Hx Diabetes Denies: Hx Anemia Cardiovascular History: Reports: Hx Hypertension Denies: Hx Pacemaker/ICD Respiratory History: Reports: Hx Chronic Obstructive Pulmonary Disease (COPD) GI History: Denies: Hx Jaundice History: Denies: Hx Renal Disease Sensory History: Reports: Hx Contacts or Glasses Denies: Hx Hearing Aid Opthamlomology History: Reports: Hx Contacts or Glasses Neurological History: Reports: Other Neuro Impairments/Disorders - parkinsonian tremors Denies: Hx Headaches Psychiatric History: Reports: Hx Anxiety, Hx Eating Disorder - Since 8th grade, Hx Depression, Hx Inpatient Treatment - 2016, Hx Community Mental Health Tx, Hx Bipolar Disorder - Manic depression Denies: Hx Panic Disorder, Hx of Violent Episodes Against Others - Surgical History Surgery Procedure, Year, and Place: ROTATOR CUFF REPAIR RIGHT 2012 Infectious Disease History: No Infectious Disease History: Denies: Traveled Outside the [place] in Last 30 Days - Family History Known Family History: Positive: Other - depression - Social History Alcohol Use: None Substance Use Type: Reports: None Substance Use Comment - Amount & Last Used: klonopin Hx Tobacco Use: Yes Smoking Status (MU): Former Smoker Type: Cigarettes Have You Smoked in the Last Year: No Review of Systems Negative: Fever Negative: Sore Throat, Nasal Discharge Positive: Cough Negative: Diarrhea Negative: burning Neurological: Other - tremors Positive: Weakness, Numbness All Other Systems Reviewed And Are Negative: Yes Physical Exam - Summary Physical Exam Summary: VITAL SIGNS: Reviewed. GENERAL: Patient is a well-developed and nourished male who is anxious in the stretcher. Patient is not in any acute respiratory distress. HEAD AND FACE: No signs of trauma. No ecchymosis, hematomas or skull depressions. No sinus tenderness. EYES: PERRLA, EOMI x 2, No injected conjunctiva, no nystagmus. EARS: Hearing grossly intact. Ear canals and tympanic membranes are within normal limits. MOUTH: Oropharynx within normal limits. Oral mucosa dry. NECK: Supple, trachea is midline, no adenopathy, no JVD, no carotid bruit, no c- spine tenderness, neck with full ROM. CHEST: Symmetric, no tenderness at palpation. LUNGS: Clear to auscultation bilaterally. No wheezing or crackles. CVS: Regular rate and rhythm, S1 and S2 present, no murmurs or gallops appreciated. ABDOMEN: Soft, non-tender. No signs of distention. No rebound, no guarding, and no masses palpated. Bowel sounds are normal. EXTREMITIES: FROM in all major joints, no edema, no cyanosis or clubbing. Involuntary tremors in upper extremities. Trophic muscles in lower extremities. NEURO: Alert and oriented x 3. No acute neurological deficits. Speech is normal and follows commands. SKIN: Dry and warm. Triage Information Reviewed: Yes Vital Signs On Initial Exam: Initial Vitals Temp Pulse Resp BP Pulse Ox 99.7 F 103 18 164/89 98 08/04/19 14:17 08/04/19 14:17 08/04/19 14:17 08/04/19 14:17 08/04/19 14:17 Vital Signs Reviewed: Yes Procedures - Sedation Patient Received Moderate/Deep Sedation with Procedure: No Diagnostics - Vital Signs Vital Signs Temp Pulse Resp BP Pulse Ox 08/04/19 14:17 99.7 F 103 18 164/89 98 - Laboratory Result Diagrams: 08/04/19 16:27 08/04/19 16:27 Lab Statement: Any lab studies that have been ordered have been reviewed, and results considered in the medical decision making process. - Radiology chest x-ray Radiology Interpretation Completed By: Radiologist Summary of Radiographic Findings: IMPRESSION: 1. No new airspace opacification. Right perihilar opacification/vascular markings or. similar in 2004. This report was reviewed by the ED physician. Re-Evaluation - Re-Evaluation First Eval Re-Evaluation Time: 17:36 Comment: Patient was updated on the consult with Dr. Curry held at 1731 and agrees with the plan. Course/Dx - Course Assessment/Plan: 54 y/o male presented to [facility] by [facility] ambulance for weakness and tremors present KNIFER UP. He states that he feels weak to the point where he can't walk and feels numb. He endorses a cough but denies fever, rhinorrhea, sore throat, diarrhea, and burning while urinating. He has recently stopped taking some of his medications such as Prozac, and is trying to wean himself off of Diazepam (20mg/day originally to 15mg/day currently). Patient notes a history of Type 1 Diabetes for which he injects himself and anxiety. He also notes history of Parkinson's that has not yet been controlled and for which he sees Dr. Curry. He spends most of his time in bed or in a reclining chair. In the ED course the patient was placed in a oracle application architect, IV access was obtained, IV fluids started. Blood test w/o a significant abnormality. I discussed the case with Dr. Curry and he has not recommendations for his tremors since he is taking medications appropriately. He recommends a consult for anxiety with mental health. Patient declines for mental health ablation. He reports that he is unable to care for himself, he is able to ambulate, he is unable to go to the bathroom, he is anorexic and unable to eat therefore he was to be admitted to the hospital. I discussed my physical exam and findings with Dr. Allen from the Hospital services and she is consulting for this patient. After her consultation she reports that the patient will be discharged home with follow-up with Dr. Curry in the primary care physician. The patient and agrees with the plan. Patient is hemodynamically stable alert and oriented times - Diagnoses Provider Diagnoses: Tremor, Weakness - Physician Notifications Discussed Care Of Patient With: Luis Eduardo Curry Time Discussed With Above Provider: 17:31 Instructed by Provider To: Other - Patient's case was discussed with Dr. Curry , who suggests continuing the patient on medications for his Parkinson's, and that the patient needs a mental health evaluation for his anxiety. At 1949 the patient's case was discussed with Dr. Allen, who will see the patient in person Discharge ED - Sign-Out/Discharge Documenting (check all that apply): Patient Departure - dc - Discharge Plan Condition: Stable Disposition: HOME Patient Education Materials: Tremors (ED) Referrals: Marcio Swenson MD [Primary Care Provider] - Additional Instructions: FOLLOW UP WITH YOUR PRIMARY CARE PROVIDER WITHIN 3 DAYS. RETURN TO THE ED FOR ANY WORSENING OR NEW SYMPTOMS. - Billing Disposition and Condition Condition: STABLE Disposition: Home - Attestation Statements Document Initiated by Yasemin: Yes Documenting Scribe: Neal Sung Provider For Whom Yasemin is Documenting (Include Credential): Ady Epstein MD Scribe Attestation: Neal Caballero scribed for Ady Epstein MD on 08/05/19 at 1336. Scribe Documentation Reviewed: Yes Provider Attestation: The documentation as recorded by the Neal daly accurately reflects the service I personally performed and the decisions made by me, Ady Epstein MD Status of Scribe Document: Viewed
[2019-08-04] MEDS ORDERED: NS 0.9% 1000 ML** 1,000 ML IV ONE (16:23)
[2019-08-04 16:35] LABS: ABS Eosinophils 0.1 10^3/ul (0-0.6); ABS Lymphocytes 1.4 10^3/ul (1.0-4.8); ABS Monocytes 0.4 10^3/ul (0-0.8); ABS Neutrophils 4.5 10^3/ul (1.5-7.7); Eosinophil % 1.7 %; Hematocrit 46 % (42-52); Hemoglobin 15.9 g/dL (14.0-18.0); Lymphocyte % 21.5 %; Mean Corpuscular HGB Conc 34 g/dL (31-36); Mean Corpuscular Hemoglobin 31 pg (27-31); Mean Corpuscular Volume 91 fL (80-94); Mean Platelet Volume 8.2 fL (7.4-10.4); Platelet Count 202 10^3/uL (150-450); Red Cell Distribution Width 13 % (10-15); White Blood Count 6.3 10^3/uL (3.5-10.8)
[2019-08-04 16:45] LABS: INR 1.02 (0.82-1.09)
[2019-08-04 16:48] LABS: Influenza A Molecular Negative (Negative); Influenza B Molecular Negative (Negative)
[2019-08-04 16:50] LABS: Alcohol < 10 mg/dL (<10)
[2019-08-04 16:52] LABS: ALT 8 U/L (7-52); AST 11 U/L (13-39); Albumin 4.4 g/dL (3.2-5.2); Albumin/Globulin Ratio 1.9 (1-3); Alkaline Phosphatase 54 U/L (34-104); Anion Gap 8 mmol/L (2-11); BUN/Creatinine Ratio 18.6 (8-20); Blood Urea Nitrogen 13 mg/dL (6-24); CO2 Carbon Dioxide 27 mmol/L (22-32); Calcium 9.8 mg/dL (8.6-10.3); Chloride 101 mmol/L (101-111); EGFR African American 143.3 (>60); EGFR Non-African American 118.4 (>60); Globulin 2.3 g/dL (2-4); Glucose 301 mg/dL (70-100); Potassium 4.2 mmol/L (3.5-5.0); Sodium 136 mmol/L (135-145); Total Protein 6.7 g/dL (6.4-8.9)
[2019-08-04 17:47] LABS: Urine Appearance Clear; Urine Bilirubin Negative (Negative); Urine Blood Negative (Negative); Urine Color Straw; Urine Ketones Negative (Negative); Urine Nitrite Negative (Negative); Urine Protein Negative (Negative); Urine Specific Gravity 1.005 (1.010-1.030); Urine Urobilinogen Negative (Negative)
[2019-08-04 17:48] LABS: Urine Glucose 2+(150 mg/dL) (Negative)
[2019-08-04 17:55] LABS: Urine Benzodiazepine Screen Presumptive Positive (None Detect); Urine Opiates Screen None Detected (None Detect)
[2019-08-04 21:04] VITALS: BP 147/82
== END 2019-08-04 21:03 | disposition home or self-care (01) ==
LOC: ED 14:13
DX: R53.1 Weakness (principal); G20 Parkinson's disease; E10.9 Type 1 diabetes mellitus without complications; Z79.4 Long term (current) use of insulin; I10 Essential (primary) hypertension; F41.9 Anxiety disorder, unspecified; Z79.899 Other long term (current) drug therapy; Z88.0 Allergy status to penicillin; Z88.8 Allergy status to other drugs, medicaments and biological substances; Z87.891 Personal history of nicotine dependence
CPT/HCPCS: 36415; 71045; 80053; 80307; 80320; 81003; 83605; 84484; 85025; 85610; 96360; 99283; G0480

== ENCOUNTER 2019-08-25 12:18 | Observation (INO) | payer OTHER ==
--- OUTSIDE RECORDS SUMMARY | 2019-08-25 12:26 | XMS REPORT | Continuity of Care Document ---
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 Onset: 07/30/2015 Diabetic neuropathy Shannan Arora M.D. Onset: 07/30/2015 Social History Type Date Description Comments Sex Unknown ETOH Use Denies alcohol use Tobacco Use Start: Unknown End: Patient is a former he quit 8 years ago Unknown smoker Smoking Status Reviewed: 08/13/19 Patient is a former he quit 8 years ago smoker Exercise Does not exercise Type/Frequency Allergies, Adverse Reactions, Alerts Active Allergies Reaction Severity Comments Date Penicillins 07/30/2015 Gabapentin 07/30/2015 Propranolol 03/20/2018 Levitra 10/02/2018 Lurasidone 10/02/2018 Rexulti Severe 03/05/2019 Oxycodone 08/13/2019 Medications Active Medications SIG Qnty Indications Ordering Provider Date Carbidopa-Levodopa take one and half 240tabs Luis Eduardo Curry, 10/15/2018 tabs at 5:45 am, M.D. 25-100mg Tablets 8:00 am, 11 am, 2 pm, and 5 pm. Humalog Kwikpen 2 units whenever Unknown eating 100Unit/ML Solution Pen-Inject Levemir Flextouch 20 units twice Unknown daily as directed 100Unit/ML Solution Pen-Inject Omeprazole 1 by mouth every Unknown 20mg day Capsules DR Centrum 1 by mouth every Unknown Tablets day Valium 0.5 tab twice a 1tabs Unknown 10mg Tablets day Excedrin Extra as needed Unknown Strength [phone] Tablets Vitamin C 1 by mouth every Unknown 1000mg day Tablets Centrum Adults 1 by mouth every Unknown day Tablets Vitamin E 2 by mouth every Unknown 400Unit day Capsules History Medications Entacapone one tab by mouth at 530 30tabs Luis Eduardo Jean Baptiste 05/20/2019 - for one week with first Glenda Curry 07/09/2019 200mg Tablets week. Take with the first dose of Carbidopa/Levodopa in the morning. Entacapone one tab by mouth at 0530 30tabs 0 Luis Eduardo Jean Baptiste 05/20/2019 - with first dose of Glenda Curry 05/20/2019 200mg Tablets Carbidopa/Levodopa Medications Administered in Office Medication SIG Qnty Indications Ordering Provider Date Depomedrol 80MG Conor Moon M.D. 04/17/2012 Injection Immunizations Description No Information Available Vital Signs Date Vital Result Comment 08/13/2019 10:28am Height 70 inches 5'10" Weight 132.00 lb Heart Rate 74 /min BP Systolic Sitting 120 mmHg BP Diastolic Sitting 76 mmHg Respiratory Rate 18 /min BMI (Body Mass Index) 18.9 kg/m2 07/09/2019 10:47am Height 70 inches 5'10" Heart Rate 76 /min BP Systolic Sitting 120 mmHg BP Diastolic Sitting 76 mmHg Respiratory Rate 18 /min Results Description No Information Available Procedures Description No Information Available Medical Devices Description No Information Available Encounters Type Date Location Provider Dx Diagnosis Office Visit 07/09/2019 [facility] Bird Garcia NP [facility] Parkinson's 11:00a [facility] Worker disease Office Visit 05/20/2019 [facility] Bird Garcia NP [facility] Parkinson's 11:30a [facility] [employer] [facility] disease Office Visit 03/05/2019 [place] Shaun Garcia NP [facility] Parkinson's 9:30a [facility] [employer] Worker disease Assessments Date Code Description Provider 08/13/2019 G20 Parkinson's disease Bird Garcia NP 08/13/2019 F41.9 Anxiety disorder, unspecified Bird Garcia NP 07/09/2019 G20 Parkinson's disease Bird Garcia, CARLOS 05/20/2019 G20 Parkinson's disease Bird Garcia, CARLOS 03/05/2019 G20 Parkinson's disease Bird Garcia NP Plan of Treatment Future Appointment(s):10/07/2019 10:30 am - Bird Garcia NP at [facility]08/13/2019 - Bird Garcia NPG20 Parkinson's diseaseFollow up:TWO MONTHSRecommendations:Increase Carbidopa/Levodopa 25/100 mg to one and half tabs at 5:30 am, 8:00 am, 11:00 am, 2 pm, and 5 pm.F41.9 Anxiety disorder, unspecified Functional Status Description No Information Available Mental Status Description No Information Available Referrals Description No Information Available
--- OUTSIDE RECORDS SUMMARY | 2019-08-25 12:26 | XMS REPORT | Continuity of Care Document ---
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 Onset: 07/30/2015 Diabetic neuropathy Shannan Arora M.D. Onset: 07/30/2015 Social History Type Date Description Comments Sex Unknown ETOH Use Denies alcohol use Tobacco Use Start: Unknown End: Patient is a former he quit 8 years ago Unknown smoker Smoking Status Reviewed: 07/09/19 Patient is a former he quit 8 years ago smoker Exercise Does not exercise Type/Frequency Allergies, Adverse Reactions, Alerts Active Allergies Reaction Severity Comments Date Penicillins 07/30/2015 Gabapentin 07/30/2015 Propranolol 03/20/2018 Levitra 10/02/2018 Lurasidone 10/02/2018 Rexulti Severe 03/05/2019 Medications Active Medications SIG Qnty Indications Ordering Provider Date Carbidopa-Levodopa take 1 tab by 240tabs G20 Luis Eduardo Curry, 10/15/2018 mouth at 530 am, M.D. 25-100mg Tablets then 1 1/2 tabs by mouth at 830 am, then 2 tabs at 1130 am then 1 1/2 tabs at 230 pm, then 2 tabs at 530 pm Humalog Kwikpen 2 units whenever Unknown eating 100Unit/ML Solution Pen-Inject Levemir Flextouch 20 units twice Unknown daily as directed 100Unit/ML Solution Pen-Inject Omeprazole 1 by mouth every Unknown 20mg day Capsules DR Simvastatin take 1 tablet by Unknown 10mg mouth every day Tablets Centrum 1 by mouth every Unknown Tablets day Prozac 1 by mouth every Unknown 20mg Capsules day Valium twice a day 1tabs Unknown 10mg Tablets Excedrin Extra as needed Unknown Strength [phone] Tablets Vitamin C 1 by mouth every [...] Available Vital Signs Date Vital Result Comment 07/09/2019 10:47am Height 70 inches 5'10" Heart Rate 76 /min BP Systolic Sitting 120 mmHg BP Diastolic Sitting 76 mmHg Respiratory Rate 18 /min 05/20/2019 11:37am Height 70 inches 5'10" Weight 140.00 lb Heart Rate 76 /min BP Systolic Sitting 114 mmHg BP Diastolic Sitting 60 mmHg Respiratory Rate 18 /min BMI (Body Mass Index) 20.1 kg/m2 Results Description No Information Available Procedures Description No Information Available Medical Devices Description No Information Available Encounters Type Date Location Provider Dx Diagnosis Office Visit 05/20/2019 [place] Shaun Garcia NP G20 Parkinson's 11:30a [facility] [employer] Agent disease Office Visit 03/05/2019 Natalie Garcia NP [facility] Parkinson's 9:30a [facility] [employer] Agent disease Office Visit 01/07/2019 Natalie Garcia NP [facility] Parkinson's 8:30a [facility] [employer] Agent disease Assessments Date Code Description Provider 07/09/2019 G20 Parkinson's disease Bird Garcia, CARLOS 05/20/2019 G20 Parkinson's disease Bird Garcia, CARLOS 03/05/2019 G20 Parkinson's disease Bird Garcia, CARLOS 01/07/2019 G20 Parkinson's disease Bird Garcia NP Plan of Treatment Future Appointment(s):08/13/2019 10:30 am - Bird Garcia NP at [facility]07/09/2019 - Bird Garcia NPG20 Parkinson's diseaseFollow up:August appointment with me.Recommendations:Discontinue Comtan. Decrease Carbidopa/Levodopa 25/100 mg to one and half tablets to 830 am and 230pm Functional Status Description No Information Available Mental Status Description No Information Available Referrals Description No Information Available
--- OUTSIDE RECORDS SUMMARY | 2019-08-25 12:26 | XMS REPORT | Continuity of Care Document ---
:1965 External Reference #:[id number] Author Name Elvin Pat M.D. Address [address] [place] [address] Care Team Providers Name Role Phone Marcio Swenson M.D. 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 Onset: 11/18/2014 mellitus Proliferative retinopathy with diabetes Elvin Pat M.D. 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 Onset: 11/18/2014 Nonproliferative diabetic retinopathy Leny Tong O.D. Onset: 11/18/2014 Ocular hypertension Elvin Pat M.D. Onset: 11/18/2014 Vitreoretinal dystrophy Elvin Pat M.D. Onset: 11/18/2014 Moderate nonproliferative diabetic Elvin Pat M.D. Onset: 11/18/2014 retinopathy Vitreous hemorrhage Venecia Gtz O.D. Onset: 11/18/2014 Essential hypertension Onset: Type 1 diabetes mellitus Onset: Diabetic neuropathy Onset: Bipolar disorder Onset: Type 1 diabetes mellitus with Elvin Pat M.D. Onset: 04/28/2015 proliferative diabetic retinopathy without macular edema Type 1 diabetes mellitus with Elvin Pat M.D. Onset: 05/03/2016 proliferative diabetic retinopathy without macular edema, bilateral Tear film insufficiency Elvin Pat M.D. Onset: 11/01/2016 Parkinson's disease Onset: Social History Type Date Description Comments Sex Unknown ETOH Use Denies alcohol use Tobacco Use Start: Unknown End: Unknown Patient is a former smoker Recreational Drug Use Denies Drug Use Smoking Status Reviewed: 08/20/19 Patient is a former smoker Allergies, Adverse Reactions, Alerts Active Allergies Reaction Severity Comments Date Penicillins 11/18/2014 Latuda 11/03/2015 Levitra 11/03/2015 Gabapentin 05/03/2016 Rexulti 12/03/2018 Medications Active Medications SIG Qnty Indications Ordering Provider Date Artificial Tears as needed Elvin Pat, 05/02/2016 1-0.3% M.D. Solution Omeprazole Take One Capsule Unknown 20mg Capsules By Mouth Every Day Excedrin Unknown Fluoxetine HCL Unknown 20mg Capsules Basaglar Kwikpen Unknown 30Unit/ML Solution Pen-Inject Valium 1/2 tablet every Unknown 5mg Tablets night Carbidopa-Levodopa Take 1 Tablet By Unknown Mouth AT 530Am, 25-100mg Tablets Then Take 1 And 1/2 Tablets AT 830Am, Then Take 2 Tablets AT 1130Am, Then Take 1 And 1/2 Tablets AT 230 Immunizations Description No Information Available Vital Signs Description No Information Available Results Description No Information Available Procedures Description No Information Available Medical Devices Description No Information Available Encounters Description No Information Available Assessments Date Code Description Provider 08/20/2019 E10.3593 Type 1 diabetes mellitus with proliferative Elvin Pat M.D. diabetic retinop 08/20/2019 H04.123 Dry eye syndrome of bilateral lacrimal Elvin Pat M.D. glands Plan of Treatment 08/20/2019 - Elvin Pat M.D.E10.3593 Type 1 diabetes mellitus with proliferative diabetic retinopComments:Smoking can increase the risk of developing or worsening any eye related disease, as well as affect your overall health. If you are a smoker, we strongly recommend that you quit.If you are not a smoker, we strongly recommend that you do not start. I can detect diabetic changes in your eyes. Proper control of your diabetes is important for the health of your eyes. It is important that you keep all of your follow up appointments. Dr. aPt has sent a report to your primary care doctor, letting themknow the current status of your retina.Follow up:1 Year Follow Up Diagnostic Refraction OCT MAC You can expect to have your eyes dilated at your next visit. If Dr. Pat orders any additional testing, it may require extra time. We recommend that youbring sunglasses, as dilation drops often make you light sensitive until they wear off. We always recommend you bring someone to drive you home if you are uncomfortable driving with your eyes dilated. If you have any questions before your next visit, feel free to call our office at .H04.123 Dry eye syndrome of bilateral lacrimal glands Functional Status Description No Information Available Mental Status Description No Information Available Referrals Description No Information Available
[2019-08-25] MEDS ORDERED: NS 0.9% 1000 ML** 1,000 ML IV ONE ×3 (12:27→14:46)
[2019-08-25] MEDS ORDERED: LORazepam INJ* 2 MG/ML 1 ML VIAL IV PUSH ONE (12:32)
[2019-08-25] MEDS ORDERED: Lorazepam PYXIS KEY PRN (12:32)
--- NOTE | 2019-08-25 12:36 | ED ---
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 In addition, pt had high BP and was tachycardic. Pt has had upper left CP for days characterized as a dull ache with an occasional "hot zap." Pt is experiencing rhinorrhea, nausea, myalgia, and SOB. Pt denies abd pain. He called Dr. Swenson (his PCP) today, who recommended going to the ER. Pt is trying to wean off of valium and was down to 5mg from 20mg, when his psychiatrist suggested to stop taking it. He notes he sometimes has episodes similar to this , but that this episode is worse than normal. Pt notes hx of anxiety, diabetes, but denies hx of cardiac issues, blood clots, and alcohol use. He quit smoking 9 years ago. He takes insulin and Dr. Swenson is looking into getting him home help. Home Medications Medication Instructions Recorded Confirmed Type Insulin Lispro [Humalog 100 0 unit SC AC 05/25/16 08/04/19 History units/ml 5 ml x 3 Pens] Insulin Detemir (NF) [Levemir 100 17 unit SUBCUT BID MDD 90 units 02/22/1708/04 History units/ml 10 ml VIAL (NF)] Omeprazole CAP (NF) [Prilosec CAP* 20 mg PO BEDTIME 02/22/17 08/04/19 History 20 MG] Carbidopa/Levodop 25/100 MG(*) 1 tab PO SEE INSTRUCTIONS 08/04/19 08/04/19 History [Sinemet 25/100 TAB(*)] Fluoxetine HCl 20 mg PO DAILY 08/25/19 08/25/19 History Insulin Glargine,Hum.rec.anlog 2 units SUBCUT SEE INSTRUCTIONS 08/25/19 History [Basaglar Kwikpen 100 inuts/ml 3 ml x 5 Pens] - History Of Current Complaint Hx Obtained From: Patient, EMS Onset/Duration: Lasting Days, Still Present Character: Dull, Unable To Describe - "hot zap" Associated Signs And Symptoms: Positive: SOB, Chest Pain, Nausea, Other - positive - rhinorrhea, myalgia, HTN, tachycardia; negative - abd pain - Allergies/Home Medications Allergies/Adverse Reactions: Allergies Allergy/AdvReac Type Severity Reaction Status Date / Time brexpiprazole [From Rexulti] Allergy See Comment Verified 08/25/19 12:31 gabapentin Allergy Rash Verified 08/25/19 12:31 lurasidone [From Latuda] Allergy Unknown Verified 08/25/19 12:31 Reaction Details oxycodone Allergy Unknown Verified 08/25/19 12:31 Reaction Details Penicillins Allergy Rash Verified 08/25/19 12:31 Home Medications: Home Medications Insulin Lispro [Humalog 100 units/ml 5 ml x 3 Pens] 0 unit SC AC 05/25/16 [ History Confirmed 08/25/19] Insulin Detemir (NF) [Levemir 100 units/ml 10 ml VIAL (NF)] 18 unit SUBCUT BID MDD 90 units 02/22/17 [History Confirmed 08/25/19] Omeprazole CAP (NF) [Prilosec CAP* 20 MG] 20 mg PO BEDTIME 02/22/17 [History Confirmed 08/25/19] Carbidopa/Levodop 25/100 MG(*) [Sinemet 25/100 TAB(*)] 1.5 tab PO SEE INSTRUCTIONS 08/04/19 [History Confirmed 08/25/19] Fluoxetine HCl 20 mg PO DAILY 08/25/19 [History Confirmed 08/25/19] Insulin Glargine,Hum.rec.anlog [Basaglar Kwikpen 100 inuts/ml 3 ml x 5 Pens] 2 units SUBCUT SEE INSTRUCTIONS 08/25/19 [History Confirmed 08/25/19] PMH/Surg Hx/FS Hx/Imm Hx Endocrine/Hematology History: Reports: Hx Diabetes Denies: Hx Anemia Cardiovascular History: Reports: Hx Hypertension Denies: Hx Pacemaker/ICD Respiratory History: Reports: Hx Chronic Obstructive Pulmonary Disease (COPD) GI History: Denies: Hx Jaundice History: Denies: Hx Renal Disease Sensory History: Reports: Hx Contacts or Glasses Denies: Hx Hearing Aid Opthamlomology History: Reports: Hx Contacts or Glasses Neurological History: Reports: Other Neuro Impairments/Disorders - parkinsonian tremors Denies: Hx Headaches Psychiatric History: Reports: Hx Anxiety, Hx Eating Disorder - Since 8th grade, Hx Depression, Hx Inpatient Treatment - 2016, Hx Community Mental Health Tx, Hx Bipolar Disorder - Manic depression Denies: Hx Panic Disorder, Hx of Violent Episodes Against Others - Surgical History Surgery Procedure, Year, and Place: ROTATOR CUFF REPAIR RIGHT 2011 - Immunization History Date of Influenza Vaccine: 2019 Infectious Disease History: Denies: Traveled Outside the [place] in Last 30 Days - Family History Known Family History: Positive: Other - depression - Social History Alcohol Use: None Substance Use Type: Reports: None Substance Use Comment - Amount & Last Used: klonopin Hx Tobacco Use: Yes Smoking Status (MU): Former Smoker Type: Cigarettes Have You Smoked in the Last Year: No Review of Systems Positive: Nasal Discharge - rhinorrhea Positive: Chest Pain - upper left, Other - HTN, tachycardia Positive: Shortness Of Breath Positive: Nausea. Negative: Abdominal Pain Positive: Myalgia All Other Systems Reviewed And Are Negative: Yes Physical Exam - Summary Physical Exam Summary: Constitutional: Appears weak, underweight, Alert. (-) Distressed Skin: Warm, Dry HENT: Normocephalic; Atraumatic Eyes: Conjunctiva normal Neck: Musculoskeletal ROM normal neck. (-) JVD, (-) Stridor, (-) Tracheal deviation Cardio: Rhythm regular, Tachycardic, Heart sounds normal; Intact distal pulses; The pedal pulses are 2+ and symmetric. Radial pulses are 2+ and symmetric. (-) Murmur Pulmonary/Chest wall: Effort normal. (-) Respiratory distress, (-) Wheezes, (-) Rales Abd: Soft, (-) tenderness, (-) Distension, (-) Guarding, (-) Rebound Musculoskeletal: (-) Edema Lymph: (-) Cervical adenopathy Neuro: Alert, Oriented x3, Moving all extremities, appears restless, no focal deficits Psych: Mood and affect Normal Triage Information Reviewed: Yes Vital Signs Reviewed: Yes Procedures - Sedation Patient Received Moderate/Deep Sedation with Procedure: No Diagnostics - Laboratory Result Diagrams: 08/25/19 12:35 08/25/19 12:35 Lab Statement: Any lab studies that have been ordered have been reviewed, and results considered in the medical decision making process. - Radiology cxr Radiology Interpretation Completed By: Radiologist Summary of Radiographic Findings: IMPRESSION: HYPERINFLATION. NO ACTIVE CARDIOPULMONARY DISEASE. This report was reviewed by Dr. Flores. - EKG 1224 Cardiac Rate: Tachycardia EKG Rhythm: Sinus Tachycardia Summary of EKG Findings: Sinus tachycardia at 106bpm. No ischemic changes. This EKG was reviewed and interpreted by Dr. Flores. 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 In addition, pt had high BP and was tachycardic. Pt has had upper left CP for days characterized as a dull ache with an occasional "hot zap." Pt is experiencing rhinorrhea, nausea, myalgia, and SOB. Pt denies abd pain. He called Dr. Swenson (his PCP) today, who recommended going to the ER. Pt is trying to wean off of valium and was down to 5mg from 20mg, when his psychiatrist suggested to stop taking it. He notes he sometimes has episodes similar to this, but that this episode is worse than normal. Exam showed pt was weak, underweight, and tachycardic. Bloodwork showed BUN/creatinine ratio H , Glc H, lactic acid H at 3.6, AST L, ALT L. UA showed ketones and Glc. EKG showed Sinus tachycardia at 106bpm. No ischemic changes. X-ray chest showed HYPERINFLATION. NO ACTIVE CARDIOPULMONARY DISEASE. Pt was given 30mg IV Toradol , 4mg IV Zofran, and 2L IV NaCl. At 1558 Pt case was discussed with Carina Sosa, who agrees that admission seems reasonable. At 1600 pt case was discussed with Dr. Bedolla, who states that [facility] will admit the pt. Pt was admitted to [facility]. - Diagnoses Provider Diagnoses: Chest pain, Viral syndrome - Physician Notifications Discussed Care Of Patient With: Carina Sosa Time Discussed With Above Provider: 15:58 Instructed by Provider To: Other - Pt case was discussed with Carina Sosa, who agrees that admission seems reasonable. At 1600 pt case was discussed with Dr. Bedolla, who states that [facility] will admit the pt. Discharge ED - Sign-Out/Discharge Documenting (check all that apply): Patient Departure - admit - Discharge Plan Condition: Stable Disposition: ADMITTED TO [facility] Referrals: Marcio Swenson MD [Primary Care Provider] - - Billing Disposition and Condition Condition: STABLE Disposition: Admitted to [facility] - Attestation Statements Document Initiated by Scribe: Yes Documenting Scribe: Neal Sung Provider For Whom Scribe is Documenting (Include Credential): Houston Flores Scribe Attestation: Neal Caballero scribed for Houston Flores on 08/25/19 at 1704. Scribe Documentation Reviewed: Yes Provider Attestation: The documentation as recorded by the Neal daly accurately reflects the service I personally performed and the decisions made by me, Houston Flores Status of Scribe Document: Viewed
[2019-08-25 12:42] LABS: ABS Lymphocytes 1.1 10^3/ul (1.0-4.8); ABS Monocytes 0.4 10^3/ul (0-0.8); ABS Neutrophils 5.2 10^3/ul (1.5-7.7); Eosinophil % 0.5 %; Hematocrit 44 % (42-52); Mean Corpuscular HGB Conc 34 g/dL (31-36); Mean Corpuscular Hemoglobin 31 pg (27-31); Mean Corpuscular Volume 91 fL (80-94); Mean Platelet Volume 8.3 fL (7.4-10.4); Platelet Count 195 10^3/uL (150-450); Red Blood Count 4.81 10^6 /uL (4.18-5.48); Red Cell Distribution Width 13 % (10-15); White Blood Count 6.8 10^3/uL (3.5-10.8)
[2019-08-25 12:59] LABS: Albumin 4.4 g/dL (3.2-5.2); Albumin/Globulin Ratio 2.2 (1-3); BUN/Creatinine Ratio 20.5 (8-20); Calcium 9.3 mg/dL (8.6-10.3); EGFR African American 126.5 (>60); EGFR Non-African American 104.5 (>60); Potassium 3.8 mmol/L (3.5-5.0); Total Bilirubin 0.4 mg/dL (0.2-1.0); Total Protein 6.4 g/dL (6.4-8.9)
[2019-08-25 13:22] LABS: Influenza A Molecular Negative (Negative); Influenza B Molecular Negative (Negative)
[2019-08-25 13:42] LABS: Urine Appearance Clear; Urine Bilirubin Negative (Negative); Urine Blood Negative (Negative); Urine Color Straw; Urine Glucose 3+(>=500 mg/dL) (Negative); Urine Ketones 1+ (Negative); Urine Nitrite Negative (Negative); Urine Protein Negative (Negative); Urine Urobilinogen Negative (Negative)
[2019-08-25] MEDS ORDERED: Ondansetron INJ* 2 MG/ML VIAL IV ONE (14:46)
[2019-08-25] MEDS ORDERED: Ketorolac INJ* 30 MG/ML 1 ML VIAL IV PUSH ONE (15:39)
[2019-08-25] MEDS ORDERED: Ondansetron INJ* 2 MG/ML VIAL IV PRN (16:41)
[2019-08-25] MEDS ORDERED: Ketorolac INJ* 30 MG/ML 1 ML VIAL IV PUSH PRN (16:45)
[2019-08-25] MEDS ORDERED: Dextrose 50% Syringe 50 ML* 25 GM/50 ML SYRINGE IV PUSH PRN (16:47)
[2019-08-25] MEDS ORDERED: Carbidopa/Levodop 25/100 MG TAB(*) PO ONE (16:52)
[2019-08-25] MEDS: Insulin LISPRO* 1 UNITS UNIT SUBCUT SCH ×2 (17:49→21:35)
[2019-08-25] MEDS: Enoxaparin(*) 40 MG/0.4 ML SYR SUBCUT SCH (17:57)
[2019-08-25] MEDS: FLUoxetine CAP* 20 MG PO SCH (17:57)
[2019-08-25] MEDS: Acetaminophen TAB* 325 MG PO SCH (17:57)
[2019-08-25] MEDS: Diazepam TAB(*) 5 MG PO SCH (17:57)
[2019-08-25] MEDS: Carbidopa/Levodop 25/100 MG TAB(*) PO SCH (18:24)
--- NOTE | 2019-08-25 21:31 | HP ---
CC: Dr. Marcio Swenson; Dr. Luis Eduardo Curry * ADMISSION HISTORY AND PHYSICAL: DATE OF ADMISSION: 08/25/19 PRIMARY CARE PROVIDER: Dr. Marcio Swenson. MY ATTENDING WHILE IN THE HOSPITAL: Dr. Maribeth Bedolla.* (DICTATED BY [place]) OUTPATIENT NEUROLOGIST: Dr. Luis Eduardo Curry. CHIEF COMPLAINT: Chest pain x4 days. HISTORY OF PRESENT ILLNESS: Mr. Perez is a 54-year-old male with a past medical history significant for Parkinson's disease, diabetes mellitus type 1, and severe anxiety for which he has been on long-term benzodiazepines, who presents to the emergency department after 4 days of chest pain and pressure associated with shortness of breath on the left side of his chest, sometimes going up on his left arm or on to the right side of his chest. The patient has had pain like this before, which in 2017 when he came in for a chest pain to rule out and had nuclear medicine stress test and echocardiogram, which showed no signs of cardiac pathology. The patient at that time was known to be very anxious. The patient has been having significant difficulty with worsening dyskinesia, anxiety, ever since he stopped his diazepam, which he had been on chronically 4 days ago that he had been tapered down from 20 mg daily to 5 mg daily, and has consulted with his psychiatrist before stopping it fully; however , after that time, the patient began to develop chest pain and shortness of breath. He does feel that he has more strength off of the Valium and is very motivated towards avoiding controlled substances in the future. The patient recently had Sinemet decreased in July of this year with a discontinuation of his long-acting Sinemet. The patient had no other recent changes to medications. The patient has been having up and down blood sugars to the point that he has really been taking only his long-acting insulin and not doing his normal carb counting with meals as he has been having frequent lows, they feel exacerbate his symptoms. The patient denies any fevers or chills, any pain with urination, any urinary frequency, abdominal pain or diarrhea. The patient now feels that he has been dehydrated, has not had other changes in his diet. No difficulty breathing. No cough. The patient is able to walk at home for short distances, but generally needs a transfer chair for going to any sort of medical appointment. In the emergency department, the patient is found to have the normal troponin, nonischemic EKG, and elevated lactic acid, elevated glucose , negative D dimer, negative urinalysis, negative chest x-ray, negative influenza A and B. Due to the concern for chest pain, we were asked to evaluate the patient for admission to the hospital. PAST MEDICAL HISTORY: 1. Parkinson disease. 2. Diabetes mellitus, type 2. 3. Eating disorder. 4. GERD. 5. Anxiety. 6. Bipolar disorder. 7. Diabetic retinopathy. 8. Vitamin D, status post retinal photocoagulation. PAST SURGICAL HISTORY: Rotator cuff repair. MEDICATIONS: 1. Sinemet 25/100 of 1.5 mg at 0600, 0800, 1100, 1400, and 1700. 2. Prozac 20 mg p.o. daily. 3. Prilosec 20 mg p.o. nightly. 4. Excedrin as needed for pain. 5. Levemir 18 units subcutaneous 0600, 1800. 6. Insulin lispro, carb counting 1 to 5 ratio. ALLERGIES: PENICILLIN, OXYCODONE, GABAPENTIN, LURASIDONE, REXULTI. FAMILY HISTORY: The patient's mother is alive and well. The patient's father is alive and has diabetes and hypertension. The patient has a brother, who has diabetes mellitus type 2. SOCIAL HISTORY: The patient smoked for approximately 30 years, 1 pack per day. The patient has alcohol abuse, illicit drug use. The patient is stable, is not , and has 1 son, who is present and involved. The patient's surrogate decision maker to be his mother, Esther Perez. REVIEW OF SYSTEMS: A 10-point review of systems was reviewed and is negative except as above in HPI. PHYSICAL EXAMINATION GENERAL: The patient is a 54-year-old male, who appears his stated age and is sitting in the bed, visibly anxious with marked dyskinesia. VITAL SIGNS: Temperature 97.9, pulse rate 87, respiratory rate 20, oxygen saturation 100% on 2 L, blood pressure 129/78. HEENT: Head: Normocephalic, atraumatic. Sclerae anicteric. No conjunctival injection. Nasal mucosa moist. Oral mucosa moist. No pharyngeal erythema, discharge or exudate. NECK: Supple, nontender. No lymphadenopathy. No carotid bruit auscultated. No JVD. RESPIRATORY: Clear to auscultation bilaterally. No wheezes, rales or rhonchi. Good air exchange bilaterally. CARDIAC: Regular rate and rhythm. No clicks, murmurs, gallops or rubs. Pulses 2+ in the dorsalis pedis, posterior tibialis, and radial areas. ABDOMEN: Soft, nontender, and nondistended. Bowel sounds positive and normoactive in all 4 quadrants. No hepatosplenomegaly. No abdominal bruits auscultated. No hepatojugular reflux. GENITOURINARY: No suprapubic or CVA tenderness. SKIN: Clean, dry, and intact. No rashes. NEUROLOGIC: He has marked dyskinesia involving the upper and lower extremities with improvement particularly in the upper extremities. No other focal deficits. Alert and oriented x3. PSYCHIATRIC: Pleasant and cooperative, but very anxious. DIAGNOSTIC STUDIES/LAB DATA: White blood cell count of 6.8, hemoglobin 15.0, platelet count 185. D-dimer less than 200. Sodium 136, potassium 4.8, chloride 102, carbon dioxide 23, anion gap 11, BUN 16, creatinine 0.78, glucose 257. Lactic acid initially 3.6, repeat 1.0. Calcium 11.2. Bilirubin 0.4, AST 10, ALT 3, alkaline phosphatase 45. Troponin-I of 0.00 x2. Protein 6.4. Albumin 4.4, globulin 2.0. Urine straw color and clear. 1+ ketones, 3+ glucose. Influenza A and B negative. Studies: EKG shows sinus tachycardia. No ST segment elevation or depression. No hypertrophy or enlargement. Normal axis, rate of 106, QTC of 433. Chest x- ray read as no active cardiopulmonary disease. Hyperinflation. ASSESSMENT AND PLAN: Impression: Mr. Perez is a 54-year-old male with past medical history significant for Parkinson's disease, diabetes mellitus type 1, and anxiety, who presents to the emergency department with 4 days of chest pain and shortness of breath that coincided with the discontinuation of his long-term benzodiazepine therapy. The patient's cardiac workup so far has been benign and this is likely related to benzodiazepine withdrawal and he would be admitted to the hospital for observation and close monitoring. 1. Chest pain, anxiety, benzodiazepine withdrawal. The patient's troponins were negative. The patient's EKG was nonischemic. The patient has negative D- dimer. The patient has no other gastrointestinal symptoms. Though he had an intermittent chest pain before 4 days ago, the patient's pain coincided with the discontinuation of his long-term benzodiazepine therapy, though the patient had been tapering this, this discontinuation without the medication to also help and manage the patient's anxiety is likely the cause of his symptoms. The patient also complains of muscle spasm of his chest. It is possible that the patient's benzodiazepine therapy was aiding in alleviation of his pain. The patient will have his Valium reintroduced and is continuing decreased dose of 2.5 mg daily to assess if this will help. The patient will also have BuSpar started adjunctively to his Prozac to see if this can help manage his anxiety. If these did not help redressing his Sinemet therapy with a neurologic consult should be considered. The patient may be at this point overdosed on Sinemet given his marked hyperkinesia. No further cardiac workup is indicated at this time. Treat the patient's chest pain with Tylenol and Toradol, as the patient' s chest pain is likely musculoskeletal. 2. Parkinson's disease. See above discussion. Continue the patient's Sinemet at current dose. At this time, consider neurologic consult for reevaluation of the appropriateness of his dosing. 3. Diabetes mellitus type 1. The patient's blood sugars have been difficult to control. Continue the patient's long-acting insulin and sliding scale insulin. 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 Swenson tomorrow, who should make changes as needed. 4. Anxiety. Prozac and BuSpar as above. 5. Lactic acidosis. The patient's lactic acidosis are either artifactual from the blood draw or related to a combination of dehydration and excessive movement. CK is normal. Lactic acid has resolved. The patient has no blood positive in his urine with no concern for rhabdomyolysis. The patient has received 3 L of fluid in the emergency department and will not receive any more at this time. 6. DVT prophylaxis. Lovenox subcu. 7. FEN. The patient will have a consistent carbohydrate diet. 8. Disposition. The patient will be on observation in the hospital. TIME SPENT: Approximately 60 minutes was spent on this admission of this patient, 30 of which was spent [id number] with the patient obtaining history and physical and discussing treatment plan. Plan was discussed with my attending, Dr. Maribeth Bedolla, she is in agreement as well. [place] [id number]/[facility] #: [id number] [facility]ENTERAllie
[2019-08-25] MEDS: Pantoprazole TAB * 40 MG TAB PO SCH (21:37)
[2019-08-25] MEDS: busPIRone TAB* 5 MG PO SCH (21:37)
[2019-08-25] MEDS: Insulin GLARGINE(*) 1 UNITS UNIT SUBCUT SCH (21:38)
[2019-08-26] MEDS: Acetaminophen TAB* 325 MG PO SCH ×3 (03:04→17:52)
[2019-08-26 05:43] LABS: ABS Eosinophils 0.1 10^3/ul (0-0.6); ABS Lymphocytes 1.1 10^3/ul (1.0-4.8); ABS Monocytes 0.3 10^3/ul (0-0.8); ABS Neutrophils 1.4 10^3/ul (1.5-7.7); Eosinophil % 3.5 %; Hematocrit 43 % (42-52); Hemoglobin 14.8 g/dL (14.0-18.0); Mean Corpuscular HGB Conc 34 g/dL (31-36); Mean Corpuscular Hemoglobin 31 pg (27-31); Mean Corpuscular Volume 91 fL (80-94); Mean Platelet Volume 8.7 fL (7.4-10.4); Platelet Count 155 10^3/uL (150-450); Red Blood Count 4.71 10^6 /uL (4.18-5.48); Red Cell Distribution Width 13 % (10-15); White Blood Count 2.9 10^3/uL (3.5-10.8)
[2019-08-26 06:01] LABS: BUN/Creatinine Ratio 8.9 (8-20); Calcium 9.1 mg/dL (8.6-10.3); EGFR African American 185.4 (>60); EGFR Non-African American 153.2 (>60); Magnesium 1.8 mg/dL (1.9-2.7)
[2019-08-26] MEDS: Carbidopa/Levodop 25/100 MG TAB(*) PO SCH ×6 (06:10→20:10)
[2019-08-26] MEDS: Diazepam TAB(*) 5 MG PO SCH (08:13)
[2019-08-26] MEDS: FLUoxetine CAP* 20 MG PO SCH (08:13)
[2019-08-26] MEDS: busPIRone TAB* 5 MG PO SCH (08:13)
[2019-08-26] MEDS: Insulin GLARGINE(*) 1 UNITS UNIT SUBCUT SCH ×2 (08:14→17:42)
--- NOTE | 2019-08-26 08:19 | PN ---
Subjective - Subjective Reason for Note: Progress Note History: I reviewed Danis Perez's presentation with the patient and Checo Willis's admitting history and physical. Dr. Jud Tiwari, his psychiatrist, weaned him off diazepam. He was taking diazepam 10 mg bid and he stopped altogether around 1 week ago. He notes that on this full dose he was unable to walk and had poor mobility. He states his strength has improved, but he has developed severe anxiety. Over the last week he developed chest pain - this was in the left side of the chest and on occasion it radiated to his left arm. It didn't wake him. Yesterday, it was 8/10 and associated with shortness of breath and nausea. His troponin I series, d-dimer and EKG are all benign. He has had no symptoms suggestive of infection - no fever, sweats, cough, change in appetite, change in bowel habit, dysuria. He notes his "tremors" are much worse. He has had difficulty controlling his type 1 diabetes - his glucose has gone above 400 mg/dl and then came down yesterday to 68 mg/dl. Active Problems: Active Problems Chest pain (Acute) R07.9 Extrapyramidal movements present (Acute) G25.9 Hyperglycemia due to type 1 diabetes mellitus (Acute) E10.65 Parkinsons disease (Acute) G20 Severe anxiety (Acute) F41.9 Withdrawal from diazepam (Acute) F13.239 Bipolar affective disorder (Chronic) Eating disorder (Chronic) F50.9 GERD (gastroesophageal reflux disease) (Chronic) K21.9 Hyperlipidemia (Chronic) E78.5 Hypertension (Chronic) I10 Home dose of losartan is 100mg Patient was mildly hypotensive at admission and complaining of dizziness Dose cut to 50mg, remains borderline hypotensive Recommend decreasing losartan further to 25mg Type 1 diabetes mellitus with diabetic retinopathy (Chronic) E10.319 Type I diabetes mellitus (Chronic) Difficult to manage DM and anorexia. Will give 12 U Lantus BID instead of his usual 20 bid. Lispro by SS. Uncontrolled type 1 diabetes mellitus with diabetic peripheral neuropathy ( Chronic) E10.42, E10.65 Vitamin D deficiency (Chronic) E55.9 Weakness (Chronic) R53.1 He has been evaluated for this by Dr. Arora, was being treated with propranol 10 mg daily for a tremor but did not take it today. Dr. Estes to consult on pt. PT angle. Current Medications: Current Medications Acetaminophen (Tylenol Tab*) 975 mg PO Q8H [facility] Last Admin: 08/26/19 03:04 Dose: 975 mg Buspirone HCl (Buspar Tab*) 5 mg PO BID [facility] Last Admin: 08/25/19 21:37 Dose: 5 mg Carbidopa/Levodopa (Sinemet 25/100 Tab(*)) 1.5 tab PO 0600,0800,1100,1400 [facility] Last Admin: 08/26/19 06:10 Dose: 1.5 tab Carbidopa/Levodopa (Sinemet 25/100 Tab(*)) 1.5 tab PO 1700 JONNY Dextrose (D50w Syringe 50 Ml*) 12.5 gm IV PUSH .FOR FS < 60 - SS PRN PRN Reason: FS < 60 Diazepam (Valium Tab(*)) 2.5 mg PO DAILY [facility] Last Admin: 08/25/19 17:57 Dose: 2.5 mg Enoxaparin Sodium (Lovenox(*)) 40 mg SUBCUT Q24H [facility] Last Admin: 08/25/19 17:57 Dose: 40 mg Fluoxetine HCl (Prozac Cap*) 20 mg PO DAILY [facility] Last Admin: 08/25/19 17:57 Dose: Not Given Insulin Glargine (Lantus(*)) 14 units SUBCUT 0600,1800 [facility] Last Admin: 08/25/19 21:38 Dose: 14 units Insulin Human Lispro (Humalog*) 0 units SUBCUT ACHS [facility]; Protocol Last Admin: 08/25/19 21:35 Dose: Not Given Ketorolac Tromethamine (Toradol Inj*) 30 mg IV PUSH Q6H PRN PRN Reason: PAIN - MODERATE Miscellaneous (Ativan Pyxis Street) 1 ea N/A .[address] PRN PRN Reason: [address] Ondansetron HCl (Zofran Inj*) 4 mg IV Q6H PRN PRN Reason: NAUSEA Pantoprazole Sodium (Protonix Tab*) 40 mg PO BEDTIME [facility] Last Admin: 08/25/19 21:37 Dose: 40 mg - Review of Systems Constitutional Symptoms: Yes: Weight Gain - He states he has gained weight, Weakness, Night Sweats - longstqanding Eyes: Negative: Change in Vision Pulmonary: Negative: Cough, Sputum, Wheezing, Respiratory Distress Cardiology: Positive: Chest Pain Negative: Shortness of Breath, Palpitations, Swelling of Ankles Gastroenterology: Negative: Abdominal Pain, Nausea, Vomiting, Change in Bowel Habits Genital - Urinary: Negative: Dysuria Home Medications: Home Medications Medication Instructions Recorded Confirmed Type Insulin Lispro [Humalog 100 0 unit SC AC 05/25/16 08/25/19 History units/ml 5 ml x 3 Pens] Insulin Detemir (NF) [Levemir 100 18 unit SUBCUT BID MDD 90 units 02/22/1708/25 History units/ml 10 ml VIAL (NF)] Omeprazole CAP (NF) [Prilosec CAP* 20 mg PO BEDTIME 02/22/17 08/25/19 History 20 MG] Carbidopa/Levodop 25/100 MG(*) 1.5 tab PO SEE INSTRUCTIONS 08/04/19 08/25/19 History [Sinemet 25/100 TAB(*)] Fluoxetine HCl 20 mg PO DAILY 08/25/19 08/25/19 History Insulin Glargine,Hum.rec.anlog 2 units SUBCUT SEE INSTRUCTIONS 08/25/19 History [Basaglar Kwikpen 100 inuts/ml 3 ml x 5 Pens] Allergies: Allergies Allergy/AdvReac Type Severity Reaction Status Date / Time brexpiprazole [From Rexulti] Allergy See Comment Verified 08/25/19 12:31 gabapentin Allergy Rash Verified 08/25/19 12:31 lurasidone [From Latuda] Allergy Unknown Verified 08/25/19 12:31 Reaction Details oxycodone Allergy Unknown Verified 08/25/19 12:31 Reaction Details Penicillins Allergy Rash Verified 08/25/19 12:31 Objective - Vital Signs Vital Signs: Vital Signs 08/25/19 08/25/19 08/25/19 12:26 12:27 12:48 Temperature 97.9 F Pulse Rate 93 99 93 Respiratory 17 19 15 Rate Blood Pressure 139/81 139/81 (mmHg) O2 Sat by Pulse 99 100 98 Oximetry 08/25/19 08/25/19 08/25/19 12:56 13:01 13:33 Temperature Pulse Rate 87 87 88 Respiratory 25 14 17 Rate Blood Pressure 133/78 123/80 (mmHg) O2 Sat by Pulse 100 98 97 Oximetry 08/25/19 08/25/19 08/25/19 13:56 14:01 14:26 Temperature Pulse Rate 89 98 86 Respiratory 16 17 29 Rate Blood Pressure 138/84 130/78 (mmHg) O2 Sat by Pulse 98 99 97 Oximetry 08/25/19 08/25/19 08/25/19 15:01 15:06 15:26 Temperature Pulse Rate 82 74 Respiratory 19 24 19 Rate Blood Pressure 130/77 123/74 (mmHg) O2 Sat by Pulse 97 97 Oximetry 08/25/19 08/25/19 08/25/19 15:56 16:00 16:27 Temperature Pulse Rate 73 72 86 Respiratory 13 21 19 Rate Blood Pressure 124/72 (mmHg) O2 Sat by Pulse 99 98 100 Oximetry 08/25/19 08/25/19 08/25/19 16:28 16:56 17:00 Temperature Pulse Rate 88 Respiratory 20 17 19 Rate Blood Pressure 129/78 129/82 (mmHg) O2 Sat by Pulse 100 Oximetry 08/25/19 08/25/19 08/25/19 17:26 17:57 18:00 Temperature Pulse Rate Respiratory 12 18 19 Rate Blood Pressure 110/74 124/73 (mmHg) O2 Sat by Pulse Oximetry 08/25/19 08/25/19 08/25/19 18:28 18:41 20:00 Temperature 99.1 F 96.8 F Pulse Rate 88 74 Respiratory 19 20 16 Rate Blood Pressure 124/73 134/50 (mmHg) O2 Sat by Pulse 98 100 Oximetry 08/25/19 08/25/19 08/26/19 21:41 22:57 02:59 Temperature 96.9 F 97.8 F Pulse Rate 69 74 Respiratory 18 16 18 Rate Blood Pressure 131/76 135/75 (mmHg) O2 Sat by Pulse 100 100 Oximetry - Intake and Output Intake and Output: Intake & Output 08/23/19 08/24/19 08/25/19 08/26/19 11:59 11:59 11:59 11:59 Intake Total 3000 Balance 3000 Weight 136 lb 9.6 oz Intake: IV Fluids 3000 Oral 0 ADLs: Meal Record Start: 08/25/19 17: 57 Freq: DAILY@0900,1400,1800 Status: Active Protocol: Created 08/25/19 17:57 System (Rec: 08/25/19 17:57 System [id number]) Intake and Output Start: 08/25/19 12: 29 Freq: Status: Active Protocol: Created 08/25/19 12:29 System (Rec: 08/25/19 12:29 System [id number]) Intake and Output Start: 08/25/19 17: 57 Freq: DAILY@0600,1400,2200 Status: Active Protocol: Created 08/25/19 17:57 System (Rec: 08/25/19 17:57 System [id number]) Document 08/25/19 22:00 [id number] (Rec: 08/25/19 22:15 [id number]) Document 08/26/19 06:00 [id number] (Rec: 08/26/19 06:15 [id number]) - Physical Exam General Physical Exam Comment: He is in constant motion with extrapyramidal, choreoathetotic movements - though not hemiballismic. General: No Cyanosis, No Anemia, No Jaundice, No Clubbing Skin: Normal: Rash Lungs and Chest: Yes: Chest Expansion Full, Chest Expansion Symetrica, Percussion Note Resonant, Vessicular Breath Sounds. No: Crackles, Wheezes, Respiratory Distress, Use of Accessory Muscles Heart Rate and Rhythm: Regular JVP: Not Elevated Additional Cardiovascular: Yes: Normal Heart Sounds. No: Heart Murmur, Pedal Edema Abdominal Exam: Yes: Soft, Bowel Sounds Present. No: Distention, Abdominal Tenderness - Extremities Cranial Nerves II-XII Intact: Yes Limbs: Abnormal Power - generally, but not focally weak, Abnormal Tone - Neuro Orientation: A/O x3 Psychiatric: Anxious Speech: Normal Results - Results Lab Results: Laboratory Results - last 24 hr 08/25/19 08/25/19 08/25/19 12:35 12:35 12:35 WBC 6.8 RBC 4.81 Hgb 15.0 Hct 44 MCV 91 MCH 31 MCHC 34 RDW 13 Plt Count 195 MPV 8.3 Neut % (Auto) 77.0 Lymph % (Auto) 16.0 [place] % (Auto) 6.3 Eos % (Auto) 0.5 Baso % (Auto) 0.2 Absolute Neuts (auto) 5.2 Absolute Lymphs (auto) 1.1 Absolute Monos (auto) 0.4 Absolute Eos (auto) 0.0 Absolute Basos (auto) 0.0 Absolute Nucleated RBC 0.0 Nucleated RBC % 0.0 D-Dimer, Quantitative Sodium 136 Potassium 3.8 Chloride 102 Carbon Dioxide 23 Anion Gap 11 BUN 16 Creatinine 0.78 Est GFR ( Amer) 126.5 Est GFR (Non-Af Amer) 104.5 BUN/Creatinine Ratio 20.5 H Glucose 257 H POC Glucose (mg/dL) Lactic Acid 3.6 H* Calcium 9.3 Magnesium Total Bilirubin 0.40 AST 10 L ALT 3 L Alkaline Phosphatase 45 Total Creatine Kinase 49 Troponin I 0.00 Total Protein 6.4 Albumin 4.4 Globulin 2.0 Albumin/Globulin Ratio 2.2 Urine Color Urine Appearance Urine pH Ur Specific [place] Urine Protein Urine Ketones Urine Blood Urine Nitrate Urine Bilirubin Urine Urobilinogen Ur Leukocyte Esterase Urine Glucose Influenza A (Rapid) Influenza B (Rapid) 08/25/19 08/25/19 08/25/19 12:35 12:52 13:30 WBC RBC Hgb Hct MCV MCH MCHC RDW Plt Count MPV Neut % (Auto) Lymph % (Auto) [place] % (Auto) Eos % (Auto) Baso % (Auto) Absolute Neuts (auto) Absolute Lymphs (auto) Absolute Monos (auto) Absolute Eos (auto) Absolute Basos (auto) Absolute Nucleated RBC Nucleated RBC % D-Dimer, Quantitative < 200 Sodium Potassium Chloride Carbon Dioxide Anion Gap BUN Creatinine Est GFR ( Amer) Est GFR (Non-Af Amer) BUN/Creatinine Ratio Glucose POC Glucose (mg/dL) Lactic Acid Calcium Magnesium Total Bilirubin AST ALT Alkaline Phosphatase Total Creatine Kinase Troponin I Total Protein Albumin Globulin Albumin/Globulin Ratio Urine Color Straw Urine Appearance Clear Urine pH 7.0 Ur Specific [place] 1.010 Urine Protein Negative Urine Ketones 1+ A Urine Blood Negative Urine Nitrate Negative Urine Bilirubin Negative Urine Urobilinogen Negative Ur Leukocyte Esterase Negative Urine Glucose 3+(>=500 mg/dl) A Influenza A (Rapid) Negative Influenza B (Rapid) Negative 08/25/19 08/25/19 08/25/19 14:48 14:48 16:10 WBC RBC Hgb Hct MCV MCH MCHC RDW Plt Count MPV Neut % (Auto) Lymph % (Auto) [place] % (Auto) Eos % (Auto) Baso % (Auto) Absolute Neuts (auto) Absolute Lymphs (auto) Absolute Monos (auto) Absolute Eos (auto) Absolute Basos (auto) Absolute Nucleated RBC Nucleated RBC % D-Dimer, Quantitative Sodium Potassium Chloride Carbon Dioxide Anion Gap BUN Creatinine Est GFR ( Amer) Est GFR (Non-Af Amer) BUN/Creatinine Ratio Glucose POC Glucose (mg/dL) 58 L Lactic Acid 1.0 Calcium Magnesium Total Bilirubin AST ALT Alkaline Phosphatase Total Creatine Kinase Troponin I 0.00 Total Protein Albumin Globulin Albumin/Globulin Ratio Urine Color Urine Appearance Urine pH Ur Specific [place] Urine Protein Urine Ketones Urine Blood Urine Nitrate Urine Bilirubin Urine Urobilinogen Ur Leukocyte Esterase Urine Glucose Influenza A (Rapid) Influenza B (Rapid) 08/25/19 08/25/19 08/25/19 17:04 18:02 20:38 WBC RBC Hgb Hct MCV MCH MCHC RDW Plt Count MPV Neut % (Auto) Lymph % (Auto) [place] % (Auto) Eos % (Auto) Baso % (Auto) Absolute Neuts (auto) Absolute Lymphs (auto) Absolute Monos (auto) Absolute Eos (auto) Absolute Basos (auto) Absolute Nucleated RBC Nucleated RBC % D-Dimer, Quantitative Sodium Potassium Chloride Carbon Dioxide Anion Gap BUN Creatinine Est GFR ( Amer) Est GFR (Non-Af Amer) BUN/Creatinine Ratio Glucose POC Glucose (mg/dL) 142 H 140 H Lactic Acid Calcium Magnesium Total Bilirubin AST ALT Alkaline Phosphatase Total Creatine Kinase Troponin I 0.00 Total Protein Albumin Globulin Albumin/Globulin Ratio Urine Color Urine Appearance Urine pH Ur Specific [place] Urine Protein Urine Ketones Urine Blood Urine Nitrate Urine Bilirubin Urine Urobilinogen Ur Leukocyte Esterase Urine Glucose Influenza A (Rapid) Influenza B (Rapid) 08/26/19 08/26/19 08/26/19 05:09 05:09 05:58 WBC 2.9 L RBC 4.71 Hgb 14.8 Hct 43 MCV 91 MCH 31 MCHC 34 RDW 13 Plt Count 155 MPV 8.7 Neut % (Auto) 50.1 Lymph % (Auto) 37.0 [place] % (Auto) 8.9 Eos % (Auto) 3.5 Baso % (Auto) 0.5 Absolute Neuts (auto) 1.4 L Absolute Lymphs (auto) 1.1 Absolute Monos (auto) 0.3 Absolute Eos (auto) 0.1 Absolute Basos (auto) 0.0 Absolute Nucleated RBC 0.0 Nucleated RBC % 0.0 D-Dimer, Quantitative Sodium 138 Potassium 4.0 Chloride 107 Carbon Dioxide 26 Anion Gap 5 BUN 5 L Creatinine 0.56 L Est GFR ( Amer) 185.4 Est GFR (Non-Af Amer) 153.2 BUN/Creatinine Ratio 8.9 Glucose 151 H POC Glucose (mg/dL) 128 H Lactic Acid Calcium 9.1 Magnesium 1.8 L Total Bilirubin AST ALT Alkaline Phosphatase Total Creatine Kinase Troponin I Total Protein Albumin Globulin Albumin/Globulin Ratio Urine Color Urine Appearance Urine pH Ur Specific [place] Urine Protein Urine Ketones Urine Blood Urine Nitrate Urine Bilirubin Urine Urobilinogen Ur Leukocyte Esterase Urine Glucose Influenza A (Rapid) Influenza B (Rapid) Radiology Results: Patient Name: DANIS PEREZ Medical Record#: [id number] Ordering Physician: Houston Flores DO Acct.#: [id number] : 1965 Age: 54 Sex: M Location: EMERGENCY DEPARTMENT Exam Date: 08/25/19 1227 ADM Status: REG ER Order Information: CHEST AP/PORT Accession Number: [id number] CPT: 62903 HISTORY: CP/SOB COMPARISONS: August 04, 2019 VIEWS: 1: frontal AP view of the chest at 12:40 PM FINDINGS: LINES AND TUBES: None. CARDIOMEDIASTINAL SILHOUETTE: The cardiomediastinal silhouette is normal for portable technique. PLEURA: The costophrenic angles are sharp. No pleural abnormalities are noted. LUNG PARENCHYMA: There is hyperinflation. ABDOMEN: The upper abdomen is clear. There is no subphrenic gas. BONES AND SOFT TISSUES: No bone or soft tissue abnormalities are noted. IMPRESSION: HYPERINFLATION. NO ACTIVE CARDIOPULMONARY DISEASE. <Electronically signed by Олег Aldana MD in [place]> 08/25/19 1255 Dictated By: Олег Aldana MD Dictated Date/Time: 08/25/19 1255 Transcribed Date/Time: 08/25/19 1255 Copy to: EKG Report: Sinus tachycardia 106 NH 124 QTc 433 QRS axis 86 peaked P waves Assessment - Problem List Assessment: Patient Problems Chest pain (Acute) Extrapyramidal movements present (Acute) Hyperglycemia due to type 1 diabetes mellitus (Acute) Parkinsons disease (Acute) Severe anxiety (Acute) Withdrawal from diazepam (Acute) Bipolar affective disorder (Chronic) Eating disorder (Chronic) GERD (gastroesophageal reflux disease) (Chronic) Hyperlipidemia (Chronic) Hypertension (Chronic) Type 1 diabetes mellitus with diabetic retinopathy (Chronic) Type I diabetes mellitus (Chronic) Uncontrolled type 1 diabetes mellitus with diabetic peripheral neuropathy ( Chronic) Vitamin D deficiency (Chronic) Weakness (Chronic) Plan: Chest pain (Acute) He has had left sided chest pain and has risk factors (T1D, hyperlipidemia). I think he requires further risk stratification - despite the negative test in 2017. Given his movement disorder I think he would do best with a dobutamine stress echocardiogram. Parkinsons disease (Acute)/Extrapyramidal movements present (Acute) This looks to me like an "on" effect of the L-Dopa. I will ask neurology to consult as he has poor mobility. I note that 10/09/18 a NM Spect study showed decreased uptake in the striata, with decreased uptake disproportionately in the putamen compared with the caudate nuclei. Hyperglycemia due to type 1 diabetes mellitus (Acute) This liikely relates to his severe anxiety - so far in the hospital it has come under control Withdrawal from diazepam (Acute) Severe anxiety (Acute) He has both benefited from withdrawal of diazepam in improved mobility, but he has also had a disadvantageous increase in anxiety. This may underlie the rest of his presentation. I will ask for a psychiatric consultation Comorbidities: Weakness - this is a chronic issue, but is exacerbated. We will have PT and OT see him Type 1 diabetes mellitus with diabetic retinopathy (Chronic) Type I diabetes mellitus (Chronic)Uncontrolled type 1 diabetes mellitus with diabetic peripheral neuropathy (Chronic) He will resume a basal/bolus regimen Eating disorder (Chronic) This underlies his weakness as well as his Parkinson' s disease. secondary diagnoses: Bipolar affective disorder (Chronic) GERD (gastroesophageal reflux disease) (Chronic) Hyperlipidemia (Chronic) Hypertension (Chronic) Vitamin D deficiency (Chronic) I spoke with both the patient and his mother and they agree with the plan
[2019-08-26] MEDS: Insulin LISPRO* 1 UNITS UNIT SUBCUT SCH ×4 (08:25→20:11)
[2019-08-26] MEDS ORDERED: D5W 1/2 NS 1000 ML BAG* 1,000 ML IV SCH (09:00)
[2019-08-26] MEDS ORDERED: Dextrose 50% VIAL 50 ml IV PUSH PRN (12:36)
[2019-08-26] MEDS ORDERED: Atropine SYRINGE* 0.1 MG/ML 10 ML SYRINGE (1 MG) ONE (12:55)
[2019-08-26] MEDS ORDERED: DOBUTamine 2000 MCG/ML IVPREMX 500 MG/250 ML BAG IV ONE (12:56)
[2019-08-26] MEDS ORDERED: Metoprolol Tartrate IV* 1 MG/ML 5 ML VIAL ONE (12:56)
--- NOTE | 2019-08-26 14:00 | CONS ---
PSYCHIATRIC CONSULTATION DATE OF CONSULTATION: 08/26/2019. DATE OF ADMISSION: 08/25/2019. ATTENDING PHYSICIAN: Dr. Marcio Swenson. CONSULTING PHYSICIAN: Dr. Gaetano Dove. REASON FOR CONSULTATION: Anxiety in a patient with a history of affective problems and multiple medial comorbidities. SUBJECTIVE HISTORY: Mr. Perez is a 54-year-old, single, white male with a history of anxiety and putative bipolar disorder, as well as comorbid Parkinson' s disease and diabetes mellitus type 1 who presented to the hospital following four days of severe chest pain and pressure associated with shortness of breath and significant anxiety. The patient is undergoing a medical work-up for this issue; however, he has had several recent changes to his psychotropic medication regimen and there is a concern that perhaps his presenting issues are attributable to anxiety. For collateral information, I spoke with the patient's attending, Dr. Swenson, who has been treating him for a number of years in the community. Dr. Swenson indicated that the patient had recently weaned off of Diazepam and, whereas his mobility had significantly improved, he developed worsening of anxiety and acute onset of chest discomfort. I also spoke with the patient's outpatient psychiatrist, Dr. Jud Tiwari, at the [facility]. She notes that Mr. Perez often has a very complicated presentation to this psychiatric illness. Although he carries a diagnosis of bipolar, she has never observed him to display manic symptoms in the years they have worked together and mostly relies on the patient's self- reporting of remote manic episodes. In the past, he was treated with [place] which caused renal insufficiency, quetiapine which lead to worsening diabetic control, and Depakote which caused over-sedation. The patient has also been on a number of serotonergic antidepressants, all of which he had had various untoward effects from. The patient carries a diagnosis of Parkinson's disease and is on pro-dopaminergic agents secondary to this. Dr. Tiwari indicates that recently the patient had been fairly stable on a combination of Fluoxetine and Diazepam. According to Dr. Tiwari, the patient initially viewed Diazepam as a "miracle drug" and had been requesting progressive increases in the dosing. Things came to a head earlier this year when the patient's mother allegedly confronted him about overutilizing Diazepam, having specific concerns about his slurring words and appearing to be oversedated. At that time, the patient reacted by abruptly self-discontinuing both Fluoxetine and Diazepam. He did poorly and had a trip to the emergency room on the 04 of August, at which time it was recommended that he resume Fluoxetine and Diazepam and go on a taper , which he agreed to. His Diazepam was rapidly tapered to 0; however, a low 2.5 mg dose was resumed in the emergency room upon this admission. He has also subsequently been resumed on Fluoxetine 20 mg daily and had a start of a trial of Buspirone 5 mg p.o. b.i.d. Of further note, the patient is terminating treatment with Dr. Tiwari as that clinician is moving out of the community and he is set to be followed up by a nurse practitioner named Bebe Enriquez in the clinic. When I meet with the patient, he is found in his room, sitting up in bed with dyskinetic movements which are immediately noted. He is calm and cooperative and corroborates much of the history that I had already gathered from his outpatient providers. At this time, he feels like stopping Diazepam has already rendered benefits from the standpoint that he is much more mentally alert as well as better able to move around his apartment. His preference at this time is to completely discontinue Diazepam and he is agreeable to another approach in terms of anxiety management. Specifically, we discussed perhaps increasing his Fluoxetine back to 30 mg and bumping up the Buspirone which was initiated at the onset of this hospitalization. Ray denies suicidal or homicidal ideations and he denies neurovegetative symptoms of depression at this time. He is also agreeable with moving up his next psychiatric med management appointment at the clinic as his current appointment is not until mid October. PAST PSYCHIATRIC HISTORY: The patient has two previous [facility] admissions. The first in the early due to severe depression and auditory hallucinations. He also had a brief hospitalization in May 2016 under the service of Dr. Hira Garvin. Previous medication trials include several serotonin reuptake inhibitors, as well as Wellbutrin, Mirtazapine, [place], Depakote and Quetiapine. I note from his allergy list that he has also been on Brexpiprazole, Gabapentin, and Lurasidone. Currently he sees Dr. Jud Tiwari of [facility]; however, she is leaving that setting and the patient will be working with nurse practitioner Bebe Enriquez. He also has a therapist named Abel Ng at the clinic. The patient has no history of formal suicidal attempts, although he does suffer from fairly chronic suicidal ideations. He carries a diagnosis of anorexia nervosa. PAST SUBSTANCE ABUSE HISTORY: Nonapplicable. PAST MEDICAL HISTORY: Significant for type 1 diabetes mellitus, Parkinson's disease, anorexia nervosa, gastroesophageal reflux disease, and diabetic neuropathy CURRENT MEDICATIONS: Sinemet, Prozac, Prilosec, Excedrin, Levemir, insulin Lispro. ALLERGIES: PENICILLIN, OXYCODONE, GABAPENTIN, LURASIDONE, BREXPIPRAZOLE. FAMILY HISTORY: Unremarkable. He has a younger brother, as well as half- brother. SOCIAL HISTORY: Ray lives alone in an apartment close to his mother's home. His mother and son live next door and visit frequently. 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 Currently, he is disabled and receives social security income. He denies any significant legal issues. MENTAL STATUS EXAM: The patient is a middle-aged, white male who is extremely slender with tattoos on his left arm, dressed in a patient gown with close cropped hair. He is calm, cooperative, makes good eye contact. He does demonstrate abnormal involuntary movements which are bilateral. Speech has a normal rate, tone and volume. Mood appears to be slightly anxious with corresponding anxious affect. The patient denies suicidal or homicidal ideations. Thought process is linear and goal-directed. Thought content is significant for his desire to have some changes in his anxiety medications. Insight and judgment are fair given his willing to follow through with psychiatric treatment. Cognitively, he is awake and alert with what would appear to be an average intellect. DIAGNOSES: AXIS I: Unspecified anxiety disorder, bipolar disorder by history, anorexia nervosa. AXIS II: Deferred. IMPRESSION: The patient is a 54-year-old, single, white male with a history of putative bipolar disorder, as well as anorexia nervosa and significant anxiety, as well as medical comorbidities of Parkinson's disease and diabetes mellitus type 1 who arrived at the emergency room seeking hospitalization for treatment of chest pain and anxiety. The primary team feels as though his chest pain symptoms may be directly attributable to anxiety issues, particularly given the recent changes in his anxiolytic medications. At this time, it seems that there would be several reasons to discontinue Diazepam as it is worsening his motor problems, making him sedated and withdrawn and perhaps there is some recent history of misutilization. He is agreeable with switching this to a different approach and we discussed the possibility of increasing his Fluoxetine and continuing with the Buspirone trial which was initiated by the Hospitalist service. RECOMMENDATIONS TO PRIMARY TEAM: Psychiatry does not see a need for one-to-one observations nor Behavioral Science Unit hospitalization given this patient's current safety profile. We do recommend changing his medication strategy. This would entail increasing Fluoxetine from 20 mg to 30 mg daily, discontinuing Diazepam and increasing Buspirone from 5 to 10 mg p.o. b.i.d. The patient has follow-ups with his therapist, Abel Ng, at the clinic, as well as psychiatric nurse practitioner Bebe Enriquez. I will have Social Work on the fourth floor reschedule his psychiatric follow-up so that he is seen sooner than mid October. Psychiatry will continue to follow the patient along with you. Thank you for the consult. [id number]/[facility] #: [id number] SAMUEL
--- NOTE | 2019-08-26 15:02 | STRESS ---
"*[facility]* [place] [address] Fax #: [phone] Stress Echocardiogram Dobutamine Patient: Ray Perez : 1965 Study Date: 08/26/2019 Age: 54 Gender: M HR: 79 bpm Height: 70.1 in /178 cm BSA: 1.74 m^2 Weight: 136.4 lb /62 kg BMI: 19.6 kg/m^2 *Customer Pricing Manager: * Deidre Booker [facility] *Referring Physician: * Marcio Swenson *Reading Physician: * Brice Reina MD Indications: Chest Pain, unspecified. History: Risk factors: Former tobacco use. Hypertension. Diabetes mellitus. Dyslipidemia. Conclusions Summary: Normal dobutamine stress echocardiogram. Low risk study Study data: Stress echocardiogram Consent: The risks and benefits of the procedure, including alternatives were discussed with the patient and/or their health care freight representative and written informed consent was obtained. Procedure: Initial setup: Intravenous access was obtained. Surface ECG leads and manual cuff blood pressure measurements were monitored throughout the procedure. A baseline ECG was recorded. Dobutamine stress test. Dobutamine was administered by intravenous infusion at an initial rate of 40 mcg/kg/min; the rate was advanced to a final rate of 40 mcg/kg/min. The infusion was terminated after achieving the target heart rate. Transthoracic stress echocardiography. Image quality was good. Images were captured at baseline, low dose, peak dose, and recovery. Location: Echo laboratory. Patient status: Inpatient. Patient location: Stress lab. Study status: Routine. Study completion: There were no complications. Findings Baseline ECG: Normal sinus rhythm. Cardiac stress table: + + + |Stage |BP | + + + |Baseline |131/77 (95)| + + + |Dobutamine 40 ug/kg/min|169/61 (97)| + + + Stress results: Maximal heart rate during stress was 144 bpm (86% of maximal predicted heart rate). The maximal predicted heart rate was 168 bpm.The target heart rate was 143 bpm.The target heart rate was achieved. There is an appropriate response to stress. The rate-pressure product for the peak heart rate and blood pressure was 42166 mm Hg/min. Stress ECG: Sinus tachycardia. Baseline: LV global systolic function is normal. The estimated LV ejection fraction is 55-60%. Normal wall motion; no LV regional wall motion abnormalities. Peak stress: LV global systolic function is hyperdynamic. The estimated LV ejection fraction is 75-80%. Normal wall motion; no LV regional wall motion abnormalities. Stress echo results: There is no evidence for stress-induced ischemia. Prepared and electronically signed by Brice Reina MD 08/26/2019 15:01"
[2019-08-26] MEDS ORDERED: Carbidopa/Levodop 25/100 MG TAB(*) PO SCH (17:00)
--- NOTE | 2019-08-26 17:52 | CONS ---
NEUROLOGY CONSULTATION: DATE OF CONSULT: 08/26/19 REFERRING PROVIDER: Marcio Swenson MD LOCATION: He is an inpatient in room 402. CHIEF COMPLAINT: Chest pain, history of Parkinson's disease. HISTORY OF PRESENT ILLNESS: Ray Perez is a 54-year-old man known to me from outpatient evaluation for Parkinson's disease. I had seen him several years ago with parkinsonism and thought it was probably drug induced from the psychotropic medications. However, overtime, he developed a symmetrical rest tremor, more in his right hand than his left, which lead to a dopamine transporter scan, which was abnormal and concerns dopaminergic neurodegeneration. He has been treated with carbidopa and levodopa for over a year now. He notes a wearing off effect where his right hand tremor gets worse and he starts to feel very anxious. He suffers from severe anxiety as it is. He recently tapered up diazepam. He is on buspirone, which was recently recommended to be increased. He is also being evaluated for chest pain. PAST MEDICAL HISTORY: Notable for type 2 diabetes, Parkinson's disease, anxiety , and depression, gastroesophageal reflux, diabetic retinopathy and diabetic neuropathy. MEDICATIONS: At home consist of: 1. Sinemet 25/100, 1.5 tablets he takes at 6 a.m., 8 a.m., 11 a.m., 2 p.m., and 5 p.m. 2. Prozac 20 mg p.o. daily. 3. Prilosec 20 mg p.o. daily. 4. Levemir insulin. 5. Sliding scale insulin. ALLERGIES: He is allergic to PENICILLIN, OXYCODONE, GABAPENTIN, and REXULTI. REVIEW OF SYSTEMS: Negative for chest pain but he did have it earlier at his hospitalization. He has poor appetite. He is prone to constipation. He denies hallucinations. He has difficulty sleeping at night. No recent fever or sweats. PHYSICAL EXAMINATION: He is thin but well hydrated. Temperature 98.1, blood pressure was 117/65, heart rate is in the 70s and regular. Neurological exam, facial musculature is notable for mild dyskinesia as well as grade 2 hypomania. Speech is soft but clear. He has had no cogwheel. He has reasonably normal strength in the limbs. He has mild diffuse truncal and limb dyskinesias. Fingertips are slow and clumsy in the right hand relative to the left. He is alert and oriented. Memory is intact and language is fluent. LABORATORY DATA: Includes a CBC from earlier today notable for low white blood cell count at 2.9. Chemistry profile notable for glucose of 151 earlier today. Creatinine is 0.56. TSH was a little bit low this morning at 0.20. Ray exhibits wearing off effect, which includes anxiety. Recommend adding Comtan to his Sinemet for the first 3 doses of the day. Recommend stretching with carbidopa/levodopa out to 1.5 tablets every 4 hours starting at 8 in the morning. Hopefully, that will alleviate his end-of-dose wearing off effects without aggravating his dyskinesias. I will continue to follow him along with you. [id number]/[facility] #: [id number] [facility]
[2019-08-26] MEDS: Enoxaparin(*) 40 MG/0.4 ML SYR SUBCUT SCH (17:53)
[2019-08-26] MEDS: Pantoprazole TAB * 40 MG TAB PO SCH (20:09)
[2019-08-26] MEDS: busPIRone TAB* 10 MG PO SCH (20:09)
[2019-08-27] MEDS: Acetaminophen TAB* 325 MG PO SCH ×2 (02:57→09:17)
[2019-08-27] MEDS: Insulin GLARGINE(*) 1 UNITS UNIT SUBCUT SCH (05:47)
[2019-08-27 07:17] VITALS: BP 127/80
[2019-08-27] MEDS: Carbidopa/Levodop 25/100 MG TAB(*) PO SCH (07:43)
[2019-08-27] MEDS: busPIRone TAB* 10 MG PO SCH (07:45)
[2019-08-27] MEDS ORDERED: CMCS: Entacapone (NF) 200 MG TAB PO SCH (08:00)
--- NOTE | 2019-08-27 08:35 | PN ---
Subjective - Subjective Reason for Note: Discharge Note History: Discharge summary: Ray Perez had a negative dobutamine stress echocardiogram. He has had no further chest pain. I have reviewed reports from Drs Nuno, Derrell and Antoinette. Today, he has some pain in his lower legs that is a chronic problem. His glucose is elevated - for some reason his glargine was withheld last night. His appetite is normal. He has no fevers/sweats. He is not coughing. He feels ready to go home. Active Problems: Active Problems Chest pain (Acute) R07.9 Extrapyramidal movements present (Acute) G25.9 Hyperglycemia due to type 1 diabetes mellitus (Acute) E10.65 Parkinsons disease (Acute) G20 Severe anxiety (Acute) F41.9 Withdrawal from diazepam (Acute) F13.239 Bipolar affective disorder (Chronic) Eating disorder (Chronic) F50.9 GERD (gastroesophageal reflux disease) (Chronic) K21.9 Hyperlipidemia (Chronic) E78.5 Hypertension (Chronic) I10 Home dose of losartan is 100mg Patient was mildly hypotensive at admission and complaining of dizziness Dose cut to 50mg, remains borderline hypotensive Recommend decreasing losartan further to 25mg Type 1 diabetes mellitus with diabetic retinopathy (Chronic) E10.319 Type I diabetes mellitus (Chronic) Difficult to manage DM and anorexia. Will give 12 U Lantus BID instead of his usual 20 bid. Lispro by SS. Uncontrolled type 1 diabetes mellitus with diabetic peripheral neuropathy ( Chronic) E10.42, E10.65 Vitamin D deficiency (Chronic) E55.9 Weakness (Chronic) R53.1 He has been evaluated for this by Dr. Arora, was being treated with propranol 10 mg daily for a tremor but did not take it today. Dr. Estes to consult on pt. PT eval. Current Medications: Current Medications Acetaminophen (Tylenol Tab*) 975 mg PO Q8H [facility] Last Admin: 08/27/19 02:57 Dose: 975 mg Buspirone HCl (Buspar Tab*) 10 mg PO BID [facility] Last Admin: 08/27/19 07:45 Dose: 10 mg Carbidopa/Levodopa (Sinemet 25/100 Tab(*)) 1.5 tab PO 0800,1200,1600,2000 [facility] Last Admin: 08/27/19 07:43 Dose: 1.5 tab Dextrose (Dextrose 50% Vial 50 Ml*) 25 ml IV PUSH .FOR FS < 60 - SS PRN PRN Reason: FS < 60 Enoxaparin Sodium (Lovenox(*)) 40 mg SUBCUT Q24H [facility] Last Admin: 08/26/19 17:53 Dose: 40 mg Entacapone (Comtan(Nf)) 200 mg PO 0800,1200,1600 [facility] Last Admin: 08/27/19 07:46 Dose: 200 mg Fluoxetine HCl (Prozac Cap*) 20 mg PO DAILY [facility] Last Admin: 08/27/19 07:45 Dose: 20 mg Fluoxetine HCl (Prozac Cap*) 10 mg PO DAILY [facility] Last Admin: 08/27/19 07:44 Dose: 10 mg Insulin Glargine (Lantus(*)) 14 units SUBCUT 0600,1800 [facility] Last Admin: 08/27/19 05:47 Dose: 14 units Insulin Human Lispro (Humalog*) 0 units SUBCUT ACHS [facility]; Protocol Last Admin: 08/26/19 20:11 Dose: 4 unit Miscellaneous (Ativan Pyxis Street) 1 ea N/A .[address] PRN PRN Reason: [address] Ondansetron HCl (Zofran Inj*) 4 mg IV Q6H PRN PRN Reason: NAUSEA Pantoprazole Sodium (Protonix Tab*) 40 mg PO BEDTIME [facility] Last Admin: 08/26/19 20:09 Dose: 40 mg Home Medications: Home Medications Medication Instructions Recorded Confirmed Type Insulin Lispro [Humalog 100 0 unit SC AC 05/25/16 08/25/19 History units/ml 5 ml x 3 Pens] Omeprazole CAP (NF) [Prilosec CAP* 20 mg PO BEDTIME 02/22/17 08/25/19 History 20 MG] Carbidopa/Levodop 25/100 MG(*) 1.5 tab PO SEE INSTRUCTIONS 08/04/19 08/25/19 History [Sinemet 25/100 TAB(*)] Fluoxetine HCl 20 mg PO DAILY 08/25/19 08/25/19 History Insulin Glargine,Hum.rec.anlog 14 units SUBCUT BID 08/25/19 08/26/19 History [Basaglar Kwikpen 100 inuts/ml 3 ml x 5 Pens] Allergies: Allergies Allergy/AdvReac Type Severity Reaction Status Date / Time brexpiprazole [From Rexulti] Allergy See Comment Verified 08/25/19 12:31 gabapentin Allergy Rash Verified 08/25/19 12:31 lurasidone [From Latuda] Allergy Unknown Verified 08/25/19 12:31 Reaction Details oxycodone Allergy Unknown Verified 08/25/19 12:31 Reaction Details Penicillins Allergy Rash Verified 08/25/19 12:31 Objective - Vital Signs Vital Signs: Vital Signs 08/26/19 08/26/19 08/26/19 10:05 11:15 16:50 Temperature 98.1 F Pulse Rate 71 Respiratory 22 20 22 Rate Blood Pressure 117/65 (mmHg) O2 Sat by Pulse 100 Oximetry 08/26/19 08/26/19 08/26/19 17:30 18:16 19:09 Temperature 97.8 F 97.5 F Pulse Rate 73 73 Respiratory 24 16 18 Rate Blood Pressure 105/64 104/58 (mmHg) O2 Sat by Pulse 99 99 Oximetry 08/26/19 08/27/19 08/27/19 23:12 03:00 07:15 Temperature 97.8 F 97.8 F 98.1 F Pulse Rate 76 78 77 Respiratory 20 18 16 Rate Blood Pressure 109/63 127/75 127/80 (mmHg) O2 Sat by Pulse 98 100 99 Oximetry - Intake and Output Intake and Output: Intake & Output 08/24/19 08/25/19 08/26/19 08/27/19 11:59 11:59 11:59 11:59 Intake Total 3120 1711 Balance 3120 1711 Weight 136 lb 9.6 oz Intake: IV Fluids 3000 751 all fluids 195 Oral 120 960 Other: # Bowel Movements 0 # Voids 0 ADLs: Meal Record Start: 08/25/19 17: 57 Freq: DAILY@0900,1400,1800 Status: Active Protocol: Created 08/25/19 17:57 System (Rec: 08/25/19 17:57 System [facility]-6) Document 08/26/19 09:07 [id number] (Rec: 08/26/19 09:08 [id number] MED-C14) Document 08/26/19 13:56 [email or web address] (Rec: 08/26/19 13:56 [email or web address] MED-C11) Document 02/24/20 18:00 [id number] (Rec: 08/26/19 18:45 [id number] MED-C11) Intake and Output Start: 08/25/19 12: 29 Freq: Status: Active Protocol: Created 08/25/19 12:29 System (Rec: 08/25/19 12:29 System [id number]) Intake and Output Start: 08/25/19 17: 57 Freq: DAILY@0600,1400,2200 Status: Active Protocol: Created 08/25/19 17:57 System (Rec: 08/25/19 17:57 System [id number]) Document 08/25/19 22:00 [id number] (Rec: 08/25/19 22:15 [id number] MED-C15) Document 08/26/19 06:00 [id number] (Rec: 08/26/19 06:15 [id number] MED-C15) Document 08/26/19 13:54 [id number] (Rec: 08/26/19 13:55 [id number] MED-C11) Document 08/26/19 22:00 [id number] (Rec: 08/26/19 23:06 [id number] MED-C11) Document 08/27/19 05:19 [id number] (Rec: 08/27/19 05:20 [id number] MED-C09) - Physical Exam General Physical Exam Comment: He is sitting on the side of his bed eating his breakfast. He has some tremor. He is in no distress and is hemodynamically stable General: No Cyanosis, No Anemia, No Jaundice, No Clubbing Lungs and Chest: Yes: Chest Expansion Full, Chest Expansion Symetrica, Percussion Note Resonant, Vessicular Breath Sounds. No: Crackles, Wheezes, Respiratory Distress, Use of Accessory Muscles Heart Rate and Rhythm: Regular Additional Cardiovascular: Yes: Normal Heart Sounds. No: Heart Murmur, Pedal Edema Abdominal Exam: Yes: Soft, Bowel Sounds Present. No: Distention, Abdominal Tenderness - Extremities Cranial Nerves II-XII Intact: Yes Limbs: Abnormal Power - generalized weakness, Abnormal Tone - increased - Neuro Orientation: A/O x3 Psychiatric: Anxious Speech: Normal Results - Results Lab Results: Laboratory Results - last 24 hr 08/26/19 08/26/19 08/26/19 05:05 11:48 15:41 POC Glucose (mg/dL) 261 H 83 TSH 0.20 L 08/26/19 08/27/19 19:51 05:42 POC Glucose (mg/dL) 312 H 224 H TSH Assessment - Problem List Assessment: Patient Problems Chest pain (Acute) Extrapyramidal movements present (Acute) Hyperglycemia due to type 1 diabetes mellitus (Acute) Parkinsons disease (Acute) Severe anxiety (Acute) Withdrawal from diazepam (Acute) Bipolar affective disorder (Chronic) Eating disorder (Chronic) GERD (gastroesophageal reflux disease) (Chronic) Hyperlipidemia (Chronic) Hypertension (Chronic) Type 1 diabetes mellitus with diabetic retinopathy (Chronic) Type I diabetes mellitus (Chronic) Uncontrolled type 1 diabetes mellitus with diabetic peripheral neuropathy ( Chronic) Vitamin D deficiency (Chronic) Weakness (Chronic) Plan: Chest pain (Acute) A cardiac origin to this pain was ruled out by a dobutamine stress test. We will continue to modify his multiple risk factors. Extrapyramidal movements present (Acute) Parkinsons disease (Acute) Dr. Curry advises he takes the sinemet 1.5 tablets every 4 hours and starts on entacapone (comtan), a an agent that prolongs the bioavailability of l-DOPA by inhibiting the enzyme eefuoete-L-buffdg tranferase (COMT), the principle enzyme in the periphery that catabolizes L-DOPA. It will also prolong the T-1/2 of other catecholamines such as epinephrine/nor-epinephrine. Hopefully, this won' t affect his anxiety. Severe anxiety (Acute) Withdrawal from diazepam (Acute) Dr. Dove recommends introduction of buspirone and increasing the dose of fluoxetine - Mr. Perez agrees with this. [facility]. We will not restart a benzodiazepine Hyperglycemia due to type 1 diabetes mellitus (Acute) This is ongoing. I think that he will do better at home now that his anxiety is being addressed. Comorbidities: Weakness - he will have home physical therapy Secondary diagnoses: Bipolar affective disorder (Chronic) Eating disorder (Chronic) GERD (gastroesophageal reflux disease) (Chronic) Hyperlipidemia (Chronic) Hypertension (Chronic) Type 1 diabetes mellitus with diabetic retinopathy (Chronic) Type I diabetes mellitus (Chronic) Uncontrolled type 1 diabetes mellitus with diabetic peripheral neuropathy (Chronic) Vitamin D deficiency (Chronic) I discussed the above with Mr. Perez and he agrees with the plan. He will follow up with my office as outpatient as a transition of care visit within 1 week. Disposition: Home Condition: Fair
[2019-08-27] MEDS ORDERED: FLUoxetine CAP* 10 MG PO SCH (09:00)
[2019-08-27] MEDS ORDERED: FLUoxetine CAP* 20 MG PO SCH (09:00)
[2019-08-27] MEDS: Insulin LISPRO* 1 UNITS UNIT SUBCUT SCH (09:15)
== END 2019-08-27 10:00 | disposition home or self-care (01) ==
LOC: ED 12:18 → MED 16:41 → UNDOADMOB 16:41
PROVIDERS: ADMIT Internal Medicine; ATTEND Internal Medicine
DX: R07.9 Chest pain, unspecified (principal); R06.02 Shortness of breath; F41.9 Anxiety disorder, unspecified; F13.239 Sedative, hypnotic or anxiolytic dependence with withdrawal, unspecified; G20 Parkinson's disease; E10.9 Type 1 diabetes mellitus without complications; F50.00 Anorexia nervosa, unspecified; E87.2 Acidosis; J44.9 Chronic obstructive pulmonary disease, unspecified; I10 Essential (primary) hypertension; F31.9 Bipolar disorder, unspecified; E55.9 Vitamin D deficiency, unspecified; Z79.899 Other long term (current) drug therapy; Z79.4 Long term (current) use of insulin; Z88.8 Allergy status to other drugs, medicaments and biological substances; Z88.0 Allergy status to penicillin; Z87.891 Personal history of nicotine dependence; G25.9 Extrapyramidal and movement disorder, unspecified
CPT/HCPCS: 36415; 71045; 80048; 80053; 81003; 82550; 83605; 83735; 84443; 84484; 85025; 85379; 93005; 93351; 96361; 96372; 96374; 96375; 99285; A9270-GY; G0378; J0461; J1250; J1650; J1885; J2405; J3490

== ENCOUNTER 2020-08-10 07:34 | Inpatient (IN) ==
[2020-08-10 08:08] LABS: Hematocrit 46 % (42-52); Hemoglobin 15.2 g/dL (14.0-18.0); Mean Corpuscular HGB Conc 33 g/dL (31-36); Mean Corpuscular Hemoglobin 31 pg (27-31); Mean Corpuscular Volume 94 fL (80-94); Mean Platelet Volume 8.7 fL (7.4-10.4); Platelet Count 211 10^3/uL (150-450); Red Blood Count 4.85 10^6 /uL (4.18-5.48); Red Cell Distribution Width 13 % (10-15); White Blood Count 22.2 10^3/uL (3.5-10.8)
[2020-08-10] MEDS ORDERED: NS 0.9% 1000 ml BAG 1,000 ML IV ONE ×2 (08:13→08:34)
[2020-08-10 08:20] LABS: ALT 10 U/L (7-52); AST 19 U/L (13-39); Albumin 4.7 g/dL (3.2-5.2); Alkaline Phosphatase 78 U/L (34-104); Anion Gap 18 mmol/L (2-11); BUN/Creatinine Ratio 19.1 (8-20); Blood Urea Nitrogen 22 mg/dL (6-24); C Reactive Protein < 1.00 mg/L (<8.01); CO2 Carbon Dioxide 18 mmol/L (22-32); Calcium 9.6 mg/dL (8.6-10.3); Chloride 95 mmol/L (101-111); EGFR African American 80.5 (>60); EGFR Non-African American 66.5 (>60); Globulin 2.3 g/dL (2-4); Glucose 434 mg/dL (70-100); Potassium 4.8 mmol/L (3.5-5.0); Sodium 131 mmol/L (135-145)
[2020-08-10] MEDS ORDERED: Insulin Infusion 100unit/100mL 100 UNIT/100 ML BAG IV SCH (09:00)
[2020-08-10] MEDS ORDERED: NS 0.9% w/ 20 Meq KCL 1000 ml 1,000 ML IV SCH (09:00)
[2020-08-10 09:04] LABS: ABS Lymphocytes 0.6 10^3/ul (1.0-4.8); ABS Monocytes 1.1 10^3/ul (0-0.8); ABS Neutrophils 20.4 10^3/ul (1.5-7.7); Lymphocyte % 2.6 %
[2020-08-10] MEDS ORDERED: Carbidopa/Levodop 25/100 MG TAB PO ONE (09:04)
[2020-08-10 11:56] LABS: Troponin I 0.01 ng/mL (<0.03)
[2020-08-10] MEDS ORDERED: Zosyn per Pharmacy NOTE FOLLOW UP SCH (12:00)
[2020-08-10] MEDS: D5W 1/2 NS 1000 ml BAG 1,000 ML IV SCH ×3 (12:02→20:45)
[2020-08-10 12:13] LABS: BUN/Creatinine Ratio 21.3 (8-20); Calcium 8.3 mg/dL (8.6-10.3); EGFR African American 108.2 (>60); EGFR Non-African American 89.4 (>60); Potassium 4.3 mmol/L (3.5-5.0)
[2020-08-10] MEDS ORDERED: Dextrose 50% Syringe 50 ml 25 GM/50 ML SYRINGE IV PUSH PRN (13:37)
[2020-08-10 14:00] LABS: Urine Appearance Clear; Urine Bilirubin Negative (Negative); Urine Blood Negative (Negative); Urine Color Yellow; Urine Glucose 3+(>=500 mg/dL) (Negative); Urine Ketones 2+ (Negative); Urine Nitrite Negative (Negative); Urine Protein Negative (Negative); Urine Specific Gravity 1.011 (1.010-1.030); Urine Urobilinogen Negative (Negative)
[2020-08-10] MEDS ORDERED: Insulin GLARGINE 100 un/ml 10 ml VIAL SUBCUT ONE (14:16)
[2020-08-10] MEDS ORDERED: Insulin GLARGINE 100 un/ml 10 ml VIAL ONE (14:19)
[2020-08-10] MEDS: Carbidopa/Levodop 25/100 MG TAB PO SCH ×2 (15:04→17:43)
[2020-08-10] MEDS ORDERED: ASA-APAP-CAFFEINE ES (NF) TAB PO PRN (15:30)
[2020-08-10] MEDS ORDERED: Sulfamethox/Trimethoprim DS TAB 800/160 mg PO SCH (16:00)
[2020-08-10] MEDS: Butalb/Acetamin/Caff TAB 325-50-40MG PO PRN (16:48)
[2020-08-10] MEDS ORDERED: ZOSYN 3.375 GM x ONE DOSE over 30 miuntes IV (17:00)
[2020-08-10 17:16] LABS: BUN/Creatinine Ratio 17.2 (8-20); Calcium 8.3 mg/dL (8.6-10.3); EGFR African American 111.1 (>60); EGFR Non-African American 91.8 (>60)
[2020-08-10] MEDS: Enoxaparin 40 MG/0.4 ML SYR SUBCUT SCH (19:21)
[2020-08-10] MEDS ORDERED: Lactated Ringers 1000 ml BAG 1,000 ML IV ONE (20:19)
[2020-08-10] MEDS: ZOSYN 3.375 GM Q8H per EXTENDED INFUSION IV SCH (20:44)
[2020-08-11] MEDS ORDERED: Lactated Ringers 500 ml BAG 500 ML IV ONE (00:16)
[2020-08-11] MEDS: D5W 1/2 NS 1000 ml BAG 1,000 ML IV SCH (05:18)
[2020-08-11] MEDS: ZOSYN 3.375 GM Q8H per EXTENDED INFUSION IV SCH (05:18)
[2020-08-11] MEDS: Butalb/Acetamin/Caff TAB 325-50-40MG PO PRN ×2 (05:20→09:26)
[2020-08-11] MEDS: Carbidopa/Levodop 25/100 MG TAB PO SCH ×5 (05:20→16:23)
[2020-08-11] MEDS ORDERED: Lactated Ringers 1000 ml BAG 1,000 ML IV ONE (07:15)
[2020-08-11 07:48] LABS: ABS Eosinophils 0.1 10^3/ul (0-0.6); ABS Lymphocytes 1.3 10^3/ul (1.0-4.8); ABS Monocytes 0.4 10^3/ul (0-0.8); Eosinophil % 1.5 %; Hematocrit 35 % (42-52); Hemoglobin 11.9 g/dL (14.0-18.0); Mean Corpuscular HGB Conc 34 g/dL (31-36); Mean Corpuscular Hemoglobin 32 pg (27-31); Mean Corpuscular Volume 93 fL (80-94); Platelet Count 134 10^3/uL (150-450); Red Blood Count 3.75 10^6 /uL (4.18-5.48); Red Cell Distribution Width 13 % (10-15); White Blood Count 6.9 10^3/uL (3.5-10.8)
[2020-08-11 08:06] LABS: BUN/Creatinine Ratio 10.6 (8-20); Calcium 7.6 mg/dL (8.6-10.3); EGFR African American 152.8 (>60); EGFR Non-African American 126.3 (>60); Magnesium 1.6 mg/dL (1.9-2.7); Potassium 3.6 mmol/L (3.5-5.0)
[2020-08-11] MEDS ORDERED: Magnesium Sulfate IV 3 GM in NS 0.9% 100 ml BAG 100 ML IVPB ONE (08:33)
[2020-08-11 08:56] LABS: Phosphorus 2.2 mg/dL (2.5-5.0)
[2020-08-11] MEDS: Insulin GLARGINE 100 un/ml 10 ml VIAL SUBCUT SCH ×2 (09:27→22:15)
[2020-08-11] MEDS: Vitamin THERAPEUTIC TAB PO SCH (09:27)
[2020-08-11] MEDS ORDERED: Ondansetron 4 mg VIAL 2 MG/ML 2 ml VIAL IV PRN (21:49)
[2020-08-11] MEDS: Enoxaparin 40 MG/0.4 ML SYR SUBCUT SCH (22:13)
[2020-08-12] MEDS: Carbidopa/Levodop 25/100 MG TAB PO SCH ×5 (06:19→15:50)
[2020-08-12] MEDS: Insulin GLARGINE 100 un/ml 10 ml VIAL SUBCUT SCH (08:32)
[2020-08-12] MEDS: Vitamin THERAPEUTIC TAB PO SCH (08:33)
[2020-08-12 15:40] VITALS: BP 104/67
== END 2020-08-12 15:47 | disposition home health service (06) | DRG 420 ==
LOC: ED 07:34 → ICU 11:03 → MEDTELE 08-11 08:37
PROVIDERS: ADMIT Internal Medicine; ATTEND Internal Medicine

== ENCOUNTER 2021-01-11 16:48 | Observation (INO) ==
[2021-01-11 18:00] LABS: ABS Eosinophils 0.1 10^3/ul (0-0.6); ABS Lymphocytes 1.9 10^3/ul (1.0-4.8); ABS Monocytes 0.5 10^3/ul (0-0.8); ABS Neutrophils 4.9 10^3/ul (1.5-7.7); Eosinophil % 1.6 %; Hematocrit 43 % (42-52); Hemoglobin 14.7 g/dL (14.0-18.0); Lymphocyte % 25.7 %; Mean Corpuscular HGB Conc 34 g/dL (31-36); Mean Corpuscular Hemoglobin 31 pg (27-31); Mean Corpuscular Volume 92 fL (80-94); Mean Platelet Volume 8.3 fL (7.4-10.4); Nucleated Red Blood Cells % 0.2; Platelet Count 160 10^3/uL (150-450); Red Blood Count 4.67 10^6 /uL (4.18-5.48); Red Cell Distribution Width 13 % (10-15); White Blood Count 7.4 10^3/uL (3.5-10.8)
[2021-01-11 18:04] LABS: INR 1.1 (0.86-1.15)
[2021-01-11 18:16] LABS: Albumin 4.2 g/dL (3.2-5.2); Albumin/Globulin Ratio 1.8 (1-3); C Reactive Protein 3.04 mg/L (<8.01); Calcium 9.6 mg/dL (8.6-10.3); EGFR African American 145.1 (>60); EGFR Non-African American 119.9 (>60); Globulin 2.3 g/dL (2-4); Potassium 3.7 mmol/L (3.5-5.0); Total Bilirubin 0.4 mg/dL (0.2-1.0); Total Protein 6.5 g/dL (6.4-8.9)
[2021-01-11 18:50] LABS: TSH Ultra Thyroid Stim Horm 0.91 mcIU/mL (0.34-5.60)
[2021-01-11 21:01] LABS: Urine Appearance Cloudy; Urine Bilirubin Negative (Negative); Urine Blood Negative (Negative); Urine Color Yellow; Urine Glucose Negative (Negative); Urine Ketones Trace (Negative); Urine Nitrite Negative (Negative); Urine Protein Negative (Negative); Urine Specific Gravity 1.015 (1.002-1.030); Urine Urobilinogen Negative (Negative)
[2021-01-11] MEDS ORDERED: Dextrose 50% Syringe 50 ml 25 GM/50 ML SYRINGE IV PUSH PRN (22:50)
[2021-01-11] MEDS ORDERED: ASA-APAP-CAFFEINE ES (NF) TAB PO PRN (22:51)
[2021-01-11] MEDS ORDERED: Senna TAB 8.6 mg TAB PO PRN (23:08)
[2021-01-11] MEDS ORDERED: Magnesium Hydroxide LIQ 30 ML UDC PO PRN (23:08)
[2021-01-11] MEDS ORDERED: Polyethylene Glycol 3350 17 GM PACKET PO PRN (23:08)
[2021-01-11] MEDS ORDERED: Carbidopa/Levodop 25/100 MG TAB PO ONE (23:15)
[2021-01-12 03:14] LABS: ABS Eosinophils 0.2 10^3/ul (0-0.6); ABS Lymphocytes 1.5 10^3/ul (1.0-4.8); ABS Monocytes 0.4 10^3/ul (0-0.8); ABS Neutrophils 3.8 10^3/ul (1.5-7.7); Eosinophil % 2.7 %; Hematocrit 41 % (42-52); Hemoglobin 13.8 g/dL (14.0-18.0); Lymphocyte % 25.4 %; Mean Corpuscular HGB Conc 34 g/dL (31-36); Mean Corpuscular Hemoglobin 32 pg (27-31); Mean Corpuscular Volume 93 fL (80-94); Mean Platelet Volume 8.2 fL (7.4-10.4); Platelet Count 137 10^3/uL (150-450); Red Blood Count 4.38 10^6 /uL (4.18-5.48); Red Cell Distribution Width 13 % (10-15)
[2021-01-12 03:30] LABS: EGFR African American 167.3 (>60); EGFR Non-African American 138.3 (>60); Potassium 3.7 mmol/L (3.5-5.0)
[2021-01-12] MEDS: Ondansetron ODT 4 mg TAB 4 MG TAB SL PRN ×2 (04:08→13:34)
[2021-01-12] MEDS: Carbidopa/Levodop 25/100 MG TAB PO SCH ×5 (06:10→17:29)
[2021-01-12] MEDS: Magnesium Hydroxide LIQ 30 ML UDC PO SCH ×2 (08:32→22:30)
[2021-01-12] MEDS: Insulin GLARGINE 100 un/ml 10 ml VIAL SUBCUT SCH ×2 (08:33→22:27)
[2021-01-12] MEDS ORDERED: Carbidopa/Levodop 25/100 MG TAB PO SCH (16:00)
[2021-01-13] MEDS: Carbidopa/Levodop 25/100 MG TAB PO SCH ×7 (05:29→18:05)
[2021-01-13] MEDS: Magnesium Hydroxide LIQ 30 ML UDC PO SCH ×2 (09:31→21:51)
[2021-01-13] MEDS: Insulin GLARGINE 100 un/ml 10 ml VIAL SUBCUT SCH ×3 (09:34→22:00)
[2021-01-13] MEDS ORDERED: Magnesium CITRATE LIQ 300 ML BTL PO ONE (10:53)
[2021-01-14] MEDS: Carbidopa/Levodop 25/100 MG TAB PO SCH ×7 (05:53→17:44)
[2021-01-14] MEDS: Magnesium Hydroxide LIQ 30 ML UDC PO SCH ×2 (08:33→22:07)
[2021-01-14] MEDS: Polyethylene Glycol 3350 17 GM PACKET PO SCH (08:33)
[2021-01-14] MEDS: Insulin GLARGINE 100 un/ml 10 ml VIAL SUBCUT SCH (09:37)
[2021-01-14] MEDS ORDERED: Insulin GLARGINE 100 un/ml 10 ml VIAL SUBCUT SCH (21:00)
[2021-01-15] MEDS: Carbidopa/Levodop 25/100 MG TAB PO SCH ×4 (06:00→12:58)
[2021-01-15] MEDS: Polyethylene Glycol 3350 17 GM PACKET PO SCH (08:15)
[2021-01-15] MEDS: Magnesium Hydroxide LIQ 30 ML UDC PO SCH (08:15)
[2021-01-15] MEDS ORDERED: Insulin GLARGINE 100 un/ml 10 ml VIAL SUBCUT SCH (09:00)
[2021-01-15 11:47] VITALS: BP 104/59
== END 2021-01-15 13:10 ==
LOC: MED 16:48 → ED 16:48
PROVIDERS: ADMIT Internal Medicine; ATTEND Hospitalist

== ENCOUNTER 2021-01-15 11:11 | Inpatient (IN) ==
[2021-01-15] MEDS ORDERED: Al Hydrox/Mg Hydrox/Simet LIQ 30 ML UDC PO PRN (11:41)
[2021-01-15] MEDS ORDERED: Dextrose 50% Syringe 50 ml 25 GM/50 ML SYRINGE IV PUSH PRN (11:56)
[2021-01-15] MEDS ORDERED: Ondansetron ODT 4 mg TAB 4 MG TAB SL PRN (13:01)
[2021-01-15] MEDS: Carbidopa/Levodop 25/100 MG TAB PO SCH ×3 (14:50→18:27)
[2021-01-15] MEDS: Senna TAB 8.6 mg TAB PO PRN (21:46)
[2021-01-15] MEDS: Insulin GLARGINE 100 un/ml 10 ml VIAL SUBCUT SCH (22:06)
[2021-01-16] MEDS: Carbidopa/Levodop 25/100 MG TAB PO SCH ×7 (05:47→17:43)
[2021-01-16 07:35] LABS: ABS Eosinophils 0.1 10^3/ul (0-0.6); ABS Lymphocytes 1.6 10^3/ul (1.0-4.8); ABS Monocytes 0.3 10^3/ul (0-0.8); ABS Neutrophils 2.8 10^3/ul (1.5-7.7); Eosinophil % 1.4 %; Hematocrit 41 % (42-52); Hemoglobin 14.3 g/dL (14.0-18.0); Lymphocyte % 33.9 %; Mean Corpuscular HGB Conc 35 g/dL (31-36); Mean Corpuscular Hemoglobin 32 pg (27-31); Mean Corpuscular Volume 93 fL (80-94); Mean Platelet Volume 8.1 fL (7.4-10.4); Nucleated Red Blood Cells % 0.1; Platelet Count 136 10^3/uL (150-450); Red Blood Count 4.46 10^6 /uL (4.18-5.48); Red Cell Distribution Width 13 % (10-15); White Blood Count 4.8 10^3/uL (3.5-10.8)
[2021-01-16 07:54] LABS: Albumin 3.7 g/dL (3.2-5.2); Albumin/Globulin Ratio 2.2 (1-3); Calcium 9.2 mg/dL (8.6-10.3); EGFR African American 173.9 (>60); EGFR Non-African American 143.7 (>60); Globulin 1.7 g/dL (2-4); Potassium 4.3 mmol/L (3.5-5.0); Total Bilirubin 0.3 mg/dL (0.2-1.0); Total Protein 5.4 g/dL (6.4-8.9)
[2021-01-16] MEDS ORDERED: Insulin GLARGINE 100 un/ml 10 ml VIAL SUBCUT SCH (09:00)
[2021-01-16] MEDS: Insulin GLARGINE 100 un/ml 10 ml VIAL SUBCUT SCH ×2 (09:59→22:04)
[2021-01-16] MEDS: Lidocaine PATCH 5% PATCH TRANSDERM SCH ×2 (20:24→22:09)
[2021-01-17] MEDS: Carbidopa/Levodop 25/100 MG TAB PO SCH ×7 (06:09→18:54)
[2021-01-17] MEDS: Insulin GLARGINE 100 un/ml 10 ml VIAL SUBCUT SCH ×2 (09:28→21:15)
[2021-01-17] MEDS: Lidocaine Patch REMOVE PATCH PATCH OFF SCH (10:58)
[2021-01-17] MEDS: Lidocaine PATCH 5% PATCH TRANSDERM SCH (20:17)
[2021-01-18] MEDS: Carbidopa/Levodop 25/100 MG TAB PO SCH ×7 (06:14→18:10)
[2021-01-18] MEDS: Lidocaine Patch REMOVE PATCH PATCH OFF SCH (08:19)
[2021-01-18] MEDS: Insulin GLARGINE 100 un/ml 10 ml VIAL SUBCUT SCH ×2 (09:00→22:18)
[2021-01-18] MEDS: Senna TAB 8.6 mg TAB PO PRN (21:09)
[2021-01-18] MEDS: Lidocaine PATCH 5% PATCH TRANSDERM SCH (21:22)
[2021-01-19] MEDS: Lidocaine PATCH 5% PATCH TRANSDERM SCH ×2 (01:23→20:50)
[2021-01-19] MEDS: Carbidopa/Levodop 25/100 MG TAB PO SCH ×7 (05:53→18:42)
[2021-01-19] MEDS: Insulin GLARGINE 100 un/ml 10 ml VIAL SUBCUT SCH ×2 (08:30→20:52)
[2021-01-19] MEDS: Lidocaine Patch REMOVE PATCH PATCH OFF SCH (10:40)
[2021-01-20] MEDS: Carbidopa/Levodop 25/100 MG TAB PO SCH ×8 (05:48→18:12)
[2021-01-20 06:29] LABS: ABS Eosinophils 0.2 10^3/ul (0-0.6); ABS Lymphocytes 1.9 10^3/ul (1.0-4.8); ABS Monocytes 0.6 10^3/ul (0-0.8); ABS Neutrophils 5.7 10^3/ul (1.5-7.7); Hematocrit 39 % (42-52); Hemoglobin 13.4 g/dL (14.0-18.0); Mean Corpuscular HGB Conc 34 g/dL (31-36); Mean Corpuscular Hemoglobin 32 pg (27-31); Mean Corpuscular Volume 93 fL (80-94); Mean Platelet Volume 8.8 fL (7.4-10.4); Platelet Count 121 10^3/uL (150-450); Red Cell Distribution Width 13 % (10-15); White Blood Count 8.4 10^3/uL (3.5-10.8)
[2021-01-20 06:46] LABS: Albumin 3.4 g/dL (3.2-5.2); Albumin/Globulin Ratio 1.9 (1-3); EGFR African American 164.2 (>60); EGFR Non-African American 135.7 (>60); Globulin 1.8 g/dL (2-4); Potassium 4.2 mmol/L (3.5-5.0); Total Bilirubin 0.2 mg/dL (0.2-1.0); Total Protein 5.2 g/dL (6.4-8.9)
[2021-01-20] MEDS: Insulin GLARGINE 100 un/ml 10 ml VIAL SUBCUT SCH ×2 (08:15→21:21)
[2021-01-20] MEDS: Lidocaine Patch REMOVE PATCH PATCH OFF SCH (08:31)
[2021-01-20 12:48] LABS: Glucose Confirmatory 408 mg/dL (70-100)
[2021-01-20] MEDS: Polyethylene Glycol 3350 17 GM PACKET PO PRN (16:06)
[2021-01-20] MEDS: Lidocaine PATCH 5% PATCH TRANSDERM SCH (21:22)
[2021-01-21] MEDS: Carbidopa/Levodop 25/100 MG TAB PO SCH ×7 (06:36→18:19)
[2021-01-21] MEDS: Lidocaine Patch REMOVE PATCH PATCH OFF SCH (08:05)
[2021-01-21] MEDS: Insulin GLARGINE 100 un/ml 10 ml VIAL SUBCUT SCH ×2 (09:42→20:58)
[2021-01-21 12:39] LABS: Glucose Confirmatory 445 mg/dL (70-100)
[2021-01-21] MEDS: Lidocaine PATCH 5% PATCH TRANSDERM SCH (20:59)
[2021-01-22] MEDS: Carbidopa/Levodop 25/100 MG TAB PO SCH ×7 (05:42→18:35)
[2021-01-22] MEDS: Insulin GLARGINE 100 un/ml 10 ml VIAL SUBCUT SCH ×2 (08:08→21:28)
[2021-01-22] MEDS: Lidocaine Patch REMOVE PATCH PATCH OFF SCH (08:14)
[2021-01-22] MEDS: Lidocaine PATCH 5% PATCH TRANSDERM SCH (21:12)
[2021-01-22 22:11] LABS: Urine Appearance Cloudy; Urine Bilirubin Negative (Negative); Urine Blood Negative (Negative); Urine Color Yellow; Urine Glucose Negative (Negative); Urine Ketones Trace (Negative); Urine Nitrite Negative (Negative); Urine Protein Negative (Negative); Urine Specific Gravity 1.013 (1.002-1.030); Urine Urobilinogen Negative (Negative)
[2021-01-23] MEDS: Carbidopa/Levodop 25/100 MG TAB PO SCH ×7 (05:47→18:01)
[2021-01-23] MEDS: Insulin GLARGINE 100 un/ml 10 ml VIAL SUBCUT SCH ×2 (09:39→21:39)
[2021-01-23] MEDS: Lidocaine Patch REMOVE PATCH PATCH OFF SCH (09:39)
[2021-01-23] MEDS: Lidocaine PATCH 5% PATCH TRANSDERM SCH (21:10)
[2021-01-24] MEDS: Carbidopa/Levodop 25/100 MG TAB PO SCH ×7 (05:32→18:17)
[2021-01-24] MEDS: Lidocaine Patch REMOVE PATCH PATCH OFF SCH (09:05)
[2021-01-24] MEDS: Insulin GLARGINE 100 un/ml 10 ml VIAL SUBCUT SCH ×2 (09:23→20:53)
[2021-01-24] MEDS: Senna TAB 8.6 mg TAB PO PRN (20:50)
[2021-01-24] MEDS: Lidocaine PATCH 5% PATCH TRANSDERM SCH (20:51)
[2021-01-25] MEDS: Carbidopa/Levodop 25/100 MG TAB PO SCH ×7 (05:24→18:52)
[2021-01-25] MEDS: Lidocaine Patch REMOVE PATCH PATCH OFF SCH (08:18)
[2021-01-25] MEDS: Insulin GLARGINE 100 un/ml 10 ml VIAL SUBCUT SCH ×2 (08:19→21:45)
[2021-01-25] MEDS: Polyethylene Glycol 3350 17 GM PACKET PO PRN (08:23)
[2021-01-25] MEDS: Lidocaine PATCH 5% PATCH TRANSDERM SCH (21:32)
[2021-01-26] MEDS: Carbidopa/Levodop 25/100 MG TAB PO SCH ×5 (06:03→14:24)
[2021-01-26 06:25] VITALS: BP 100/68
[2021-01-26] MEDS: Lidocaine Patch REMOVE PATCH PATCH OFF SCH (08:59)
[2021-01-26] MEDS: Insulin GLARGINE 100 un/ml 10 ml VIAL SUBCUT SCH (08:59)
== END 2021-01-26 14:57 | disposition home health service (06) | DRG 58 ==
LOC: PMRU 11:41
PROVIDERS: ADMIT Physical Medicine & Rehabilitation; ATTEND Physical Medicine & Rehabilitation

== ENCOUNTER 2021-10-14 10:31 | Observation (INO) ==
[2021-10-14 11:24] LABS: ABS Eosinophils 0.1 10^3/ul (0-0.6); ABS Lymphocytes 1.5 10^3/ul (1.0-4.8); ABS Monocytes 0.4 10^3/ul (0-0.8); ABS Neutrophils 2.4 10^3/ul (1.5-7.7); Hematocrit 41 % (42-52); Hemoglobin 14.2 g/dL (14.0-18.0); Lymphocyte % 33.9 %; Mean Corpuscular HGB Conc 35 g/dL (31-36); Mean Corpuscular Hemoglobin 33 pg (27-31); Mean Corpuscular Volume 94 fL (80-94); Mean Platelet Volume 8.2 fL (7.4-10.4); Platelet Count 136 10^3/uL (150-450); Red Blood Count 4.35 10^6 /uL (4.18-5.48); Red Cell Distribution Width 13 % (10-15); White Blood Count 4.3 10^3/uL (3.5-10.8)
[2021-10-14 11:37] LABS: Activated Partial Thrombo Time 31.2 seconds (26.0-38.0); INR 1.04 (0.86-1.15)
[2021-10-14] MEDS ORDERED: Lactated Ringers 1000 ml BAG 1,000 ML IV ONE (11:44)
[2021-10-14 11:48] LABS: High Sens Troponin Baseline 3 pg/mL (<20)
[2021-10-14] MEDS ORDERED: Thiamine IV 100 MG, Folic Acid IV 1 MG, Multiple Vitamin IV ADULT 10 ML in NS 0.9% 1000... IVPB ONE (11:57)
[2021-10-14 12:18] LABS: ALT 3 U/L (7-52); AST 13 U/L (13-39); Albumin 4.4 g/dL (3.2-5.2); Albumin/Globulin Ratio 2.3 (1-3); Alkaline Phosphatase 53 U/L (35-149); Anion Gap 5 mmol/L (2-11); Blood Urea Nitrogen 22 mg/dL (6-24); C Reactive Protein < 1.00 mg/L (<8.01); CO2 Carbon Dioxide 31 mmol/L (22-32); Calcium 9.6 mg/dL (8.6-10.3); Chloride 102 mmol/L (101-111); Creatine Kinase 31 U/L (10-223); Globulin 1.9 g/dL (2-4); Glucose 199 mg/dL (70-100); Potassium 4.1 mmol/L (3.5-5.0); Sodium 138 mmol/L (135-145); Total Protein 6.3 g/dL (6.4-8.9); eGFR CKD-EPI 110.5 (>60)
[2021-10-14 12:28] LABS: TSH Ultra Thyroid Stim Horm 0.61 mcIU/mL (0.34-5.60)
[2021-10-14 12:47] LABS: High Sensitivity Troponin 1 Hr 3 pg/mL (<20)
[2021-10-14 13:54] LABS: Erythrocyte Sed Rate 3 mm/Hr (0-19)
[2021-10-14 17:30] LABS: Urine Appearance Clear; Urine Bilirubin Negative (Negative); Urine Blood Negative (Negative); Urine Color Yellow; Urine Glucose Negative (Negative); Urine Ketones Trace (Negative); Urine Nitrite Negative (Negative); Urine Protein Negative (Negative); Urine Urobilinogen Negative (Negative)
[2021-10-14] MEDS: Enoxaparin 40 MG/0.4 ML SYR SUBCUT SCH (18:00)
[2021-10-14] MEDS ORDERED: Carbidopa/Levodop 25/100 MG TAB PO SCH (18:00)
[2021-10-14] MEDS ORDERED: Insulin GLARGINE 100 un/ml 10 ml VIAL SUBCUT SCH (21:00)
[2021-10-14] MEDS ORDERED: Carbidopa/Levodopa ER 25/100 TABLET.ER PO SCH (21:00)
[2021-10-14] MEDS ORDERED: Carbidopa/Levodop CR 50/200 TAB.CR PO SCH (21:00)
[2021-10-14] MEDS ORDERED: CARBIDOPA PO SCH (22:00)
[2021-10-14] MEDS ORDERED: LEVODOPA PO SCH (22:00)
[2021-10-14] MEDS: Carbidopa/Levodop CR 50/200 TAB.CR PO SCH (22:43)
[2021-10-15] MEDS: NS 0.9% 1000 ml BAG 1,000 ML IV SCH ×2 (03:47→17:18)
[2021-10-15] MEDS ORDERED: Carbidopa/Levodop 25/100 MG TAB PO SCH ×2 (07:00→13:00)
[2021-10-15] MEDS: Carbidopa/Levodop 25/100 MG TAB PO SCH ×6 (07:12→19:41)
[2021-10-15] MEDS: Insulin GLARGINE 100 un/ml 10 ml VIAL SUBCUT SCH ×2 (08:21→22:06)
[2021-10-15] MEDS: Multivitamins/Minerals TAB PO SCH ×2 (08:22→21:49)
[2021-10-15] MEDS: Enoxaparin 40 MG/0.4 ML SYR SUBCUT SCH (17:18)
[2021-10-15] MEDS ORDERED: Carbidopa/Levodop CR 50/200 TAB.CR PO SCH (21:00)
[2021-10-15] MEDS: Carbidopa/Levodop CR 50/200 TAB.CR PO SCH (21:50)
[2021-10-16] MEDS: NS 0.9% 1000 ml BAG 1,000 ML IV SCH (06:23)
[2021-10-16] MEDS: Carbidopa/Levodop 25/100 MG TAB PO SCH ×7 (06:26→19:47)
[2021-10-16] MEDS: Multivitamins/Minerals TAB PO SCH ×2 (09:29→22:11)
[2021-10-16] MEDS: Insulin GLARGINE 100 un/ml 10 ml VIAL SUBCUT SCH ×2 (09:30→22:15)
[2021-10-16] MEDS ORDERED: Polyethylene Glycol 3350 17 GM PACKET PO PRN (11:50)
[2021-10-16] MEDS ORDERED: Senna TAB 8.6 mg TAB PO PRN (11:50)
[2021-10-16] MEDS ORDERED: Magnesium Hydroxide LIQ 30 ML UDC PO PRN (11:50)
[2021-10-16] MEDS ORDERED: Albuterol HFA INHALER 8 gm MDI INH PRN (11:56)
[2021-10-16] MEDS ORDERED: Carbidopa/Levodop 25/100 MG TAB PO SCH (13:00)
[2021-10-16] MEDS ORDERED: Dextran 70/Hypromellose Tears Eye Drops 15 ml BTL (for Artificials Tears) BOTH EYES PRN (13:34)
[2021-10-16] MEDS: Enoxaparin 40 MG/0.4 ML SYR SUBCUT SCH (17:18)
[2021-10-16] MEDS: Carbidopa/Levodop CR 50/200 TAB.CR PO SCH (22:11)
[2021-10-17] MEDS: NS 0.9% 1000 ml BAG 1,000 ML IV SCH ×2 (07:54→21:02)
[2021-10-17] MEDS: Multivitamins/Minerals TAB PO SCH ×2 (07:57→21:03)
[2021-10-17] MEDS: Insulin GLARGINE 100 un/ml 10 ml VIAL SUBCUT SCH ×2 (07:58→21:05)
[2021-10-17] MEDS: Carbidopa/Levodop 25/100 MG TAB PO SCH ×7 (08:00→20:14)
[2021-10-17] MEDS: Enoxaparin 40 MG/0.4 ML SYR SUBCUT SCH (17:08)
[2021-10-17] MEDS: Carbidopa/Levodop CR 50/200 TAB.CR PO SCH (22:37)
[2021-10-18] MEDS: Carbidopa/Levodop 25/100 MG TAB PO SCH ×7 (07:20→21:18)
[2021-10-18] MEDS: Insulin GLARGINE 100 un/ml 10 ml VIAL SUBCUT SCH ×2 (07:37→22:22)
[2021-10-18] MEDS: Multivitamins/Minerals TAB PO SCH ×2 (09:44→21:19)
[2021-10-18] MEDS: Enoxaparin 40 MG/0.4 ML SYR SUBCUT SCH (18:10)
[2021-10-18] MEDS ORDERED: Dextrose 50% Syringe 50 ml 25 GM/50 ML SYRINGE IV PUSH PRN (22:01)
[2021-10-18] MEDS: Carbidopa/Levodop CR 50/200 TAB.CR PO SCH (22:23)
[2021-10-19] MEDS: Carbidopa/Levodop 25/100 MG TAB PO SCH ×4 (07:38→13:14)
[2021-10-19] MEDS: Insulin GLARGINE 100 un/ml 10 ml VIAL SUBCUT SCH (08:49)
[2021-10-19] MEDS: Multivitamins/Minerals TAB PO SCH (08:51)
[2021-10-19 11:31] VITALS: BP 105/58
== END 2021-10-19 15:10 ==
LOC: EDHOLD 10:31 → ED 10:31 → SUATTDRO 17:11 → MED 21:03
PROVIDERS: ADMIT Hospitalist; ATTEND Internal Medicine

== ENCOUNTER 2021-10-19 12:31 | Inpatient (IN) ==
[2021-10-19] MEDS ORDERED: Dextrose 50% Syringe 50 ml 25 GM/50 ML SYRINGE IV PUSH PRN (16:23)
[2021-10-19] MEDS: Enoxaparin 40 MG/0.4 ML SYR SUBCUT SCH (17:12)
[2021-10-19] MEDS: Carbidopa/Levodop 25/100 MG TAB PO SCH ×2 (17:12→19:46)
[2021-10-19] MEDS: Carbidopa/Levodop CR 50/200 TAB.CR PO SCH (21:51)
[2021-10-19] MEDS: Insulin GLARGINE 100 un/ml 10 ml VIAL SUBCUT SCH (21:51)
[2021-10-20] MEDS: ACETAMINOPHEN PO SCH ×2 (06:19→15:15)
[2021-10-20] MEDS: CAFFEINE PO SCH ×2 (06:19→15:15)
[2021-10-20] MEDS: ASPIRIN PO SCH ×2 (06:19→15:15)
[2021-10-20 07:55] LABS: ABS Eosinophils 0.1 10^3/ul (0-0.6); ABS Lymphocytes 1.2 10^3/ul (1.0-4.8); ABS Monocytes 0.4 10^3/ul (0-0.8); ABS Neutrophils 4.2 10^3/ul (1.5-7.7); Eosinophil % 0.9 %; Hematocrit 42 % (42-52); Hemoglobin 14.4 g/dL (14.0-18.0); Lymphocyte % 20.4 %; Mean Corpuscular HGB Conc 34 g/dL (31-36); Mean Corpuscular Hemoglobin 32 pg (27-31); Mean Corpuscular Volume 94 fL (80-94); Mean Platelet Volume 8.3 fL (7.4-10.4); Platelet Count 138 10^3/uL (150-450); Red Blood Count 4.51 10^6 /uL (4.18-5.48); Red Cell Distribution Width 13 % (10-15); White Blood Count 5.8 10^3/uL (3.5-10.8)
[2021-10-20 08:44] LABS: Albumin 3.8 g/dL (3.2-5.2); Albumin/Globulin Ratio 1.8 (1-3); Calcium 9.5 mg/dL (8.6-10.3); Globulin 2.1 g/dL (2-4); Potassium 4.4 mmol/L (3.5-5.0); Total Bilirubin 0.4 mg/dL (0.2-1.0); Total Protein 5.9 g/dL (6.4-8.9); eGFR CKD-EPI 110.5 (>60)
[2021-10-20] MEDS: Carbidopa/Levodop 25/100 MG TAB PO SCH ×7 (09:19→19:03)
[2021-10-20] MEDS: Insulin GLARGINE 100 un/ml 10 ml VIAL SUBCUT SCH ×2 (09:25→22:02)
[2021-10-20] MEDS: Enoxaparin 40 MG/0.4 ML SYR SUBCUT SCH (17:10)
[2021-10-20] MEDS: Carbidopa/Levodop CR 50/200 TAB.CR PO SCH (20:46)
[2021-10-20] MEDS: ASA APAP CAFFEINE ES PO PRN (20:51)
[2021-10-21] MEDS: ASPIRIN PO SCH ×2 (05:28→15:21)
[2021-10-21] MEDS: ACETAMINOPHEN PO SCH ×2 (05:28→15:21)
[2021-10-21] MEDS: CAFFEINE PO SCH ×2 (05:28→15:21)
[2021-10-21] MEDS: Carbidopa/Levodop 25/100 MG TAB PO SCH ×7 (07:09→19:14)
[2021-10-21] MEDS: Insulin GLARGINE 100 un/ml 10 ml VIAL SUBCUT SCH ×2 (09:23→21:33)
[2021-10-21] MEDS: Enoxaparin 40 MG/0.4 ML SYR SUBCUT SCH (17:36)
[2021-10-21] MEDS: Senna TAB 8.6 mg TAB PO PRN (21:12)
[2021-10-21] MEDS: Carbidopa/Levodop CR 50/200 TAB.CR PO SCH (21:12)
[2021-10-21] MEDS: ASA APAP CAFFEINE ES PO PRN (21:17)
[2021-10-22] MEDS: CAFFEINE PO SCH ×2 (08:48→14:38)
[2021-10-22] MEDS: ASPIRIN PO SCH ×2 (08:48→14:38)
[2021-10-22] MEDS: Carbidopa/Levodop 25/100 MG TAB PO SCH ×7 (08:48→19:02)
[2021-10-22] MEDS: ACETAMINOPHEN PO SCH ×2 (08:48→14:38)
[2021-10-22] MEDS: Insulin GLARGINE 100 un/ml 10 ml VIAL SUBCUT SCH ×2 (08:49→21:42)
[2021-10-22] MEDS: Enoxaparin 40 MG/0.4 ML SYR SUBCUT SCH (16:56)
[2021-10-22] MEDS: ASA APAP CAFFEINE ES PO PRN (20:45)
[2021-10-22] MEDS: Carbidopa/Levodop CR 50/200 TAB.CR PO SCH (20:46)
[2021-10-22] MEDS: Senna TAB 8.6 mg TAB PO PRN (20:49)
[2021-10-23] MEDS: Carbidopa/Levodop 25/100 MG TAB PO SCH ×7 (05:31→19:39)
[2021-10-23] MEDS: ASPIRIN PO SCH ×2 (07:51→15:35)
[2021-10-23] MEDS: CAFFEINE PO SCH ×2 (07:51→15:35)
[2021-10-23] MEDS: ACETAMINOPHEN PO SCH ×2 (07:51→15:35)
[2021-10-23] MEDS: Insulin GLARGINE 100 un/ml 10 ml VIAL SUBCUT SCH ×2 (09:25→20:42)
[2021-10-23] MEDS ORDERED: Polyethylene Glycol 3350 17 GM PACKET PO PRN (09:47)
[2021-10-23] MEDS: Enoxaparin 40 MG/0.4 ML SYR SUBCUT SCH (17:42)
[2021-10-23] MEDS: Carbidopa/Levodop CR 50/200 TAB.CR PO SCH (20:37)
[2021-10-24] MEDS: ASA APAP CAFFEINE ES PO PRN (02:47)
[2021-10-24] MEDS: CAFFEINE PO SCH ×2 (05:47→15:01)
[2021-10-24] MEDS: ACETAMINOPHEN PO SCH ×2 (05:47→15:01)
[2021-10-24] MEDS: ASPIRIN PO SCH ×2 (05:47→15:01)
[2021-10-24] MEDS: Carbidopa/Levodop 25/100 MG TAB PO SCH ×7 (07:59→18:28)
[2021-10-24] MEDS: Insulin GLARGINE 100 un/ml 10 ml VIAL SUBCUT SCH ×2 (09:20→21:23)
[2021-10-24] MEDS: Enoxaparin 40 MG/0.4 ML SYR SUBCUT SCH (17:04)
[2021-10-24] MEDS: Carbidopa/Levodop CR 50/200 TAB.CR PO SCH (21:22)
[2021-10-25] MEDS: Carbidopa/Levodop 25/100 MG TAB PO SCH ×7 (07:50→19:42)
[2021-10-25] MEDS: ACETAMINOPHEN PO SCH ×2 (07:51→15:25)
[2021-10-25] MEDS: ASPIRIN PO SCH ×2 (07:51→15:25)
[2021-10-25] MEDS: CAFFEINE PO SCH ×2 (07:51→15:25)
[2021-10-25] MEDS: Insulin GLARGINE 100 un/ml 10 ml VIAL SUBCUT SCH ×2 (09:35→21:23)
[2021-10-25] MEDS: Enoxaparin 40 MG/0.4 ML SYR SUBCUT SCH (17:13)
[2021-10-25] MEDS: Carbidopa/Levodop CR 50/200 TAB.CR PO SCH (21:21)
[2021-10-26] MEDS: ACETAMINOPHEN PO SCH ×2 (07:42→15:22)
[2021-10-26] MEDS: CAFFEINE PO SCH ×2 (07:42→15:22)
[2021-10-26] MEDS: Carbidopa/Levodop 25/100 MG TAB PO SCH ×7 (07:42→21:06)
[2021-10-26] MEDS: ASPIRIN PO SCH ×2 (07:42→15:22)
[2021-10-26] MEDS: Insulin GLARGINE 100 un/ml 10 ml VIAL SUBCUT SCH ×2 (09:08→21:38)
[2021-10-26] MEDS: Enoxaparin 40 MG/0.4 ML SYR SUBCUT SCH (17:07)
[2021-10-26] MEDS: Carbidopa/Levodop CR 50/200 TAB.CR PO SCH (22:48)
[2021-10-27] MEDS: Carbidopa/Levodop 25/100 MG TAB PO SCH ×7 (06:10→19:16)
[2021-10-27 07:08] LABS: ABS Eosinophils 0.2 10^3/ul (0-0.6); ABS Lymphocytes 1.8 10^3/ul (1.0-4.8); ABS Monocytes 0.4 10^3/ul (0-0.8); ABS Neutrophils 1.8 10^3/ul (1.5-7.7); Eosinophil % 3.7 %; Hematocrit 41 % (42-52); Mean Corpuscular HGB Conc 34 g/dL (31-36); Mean Corpuscular Hemoglobin 33 pg (27-31); Mean Corpuscular Volume 95 fL (80-94); Platelet Count 138 10^3/uL (150-450); Red Blood Count 4.29 10^6 /uL (4.18-5.48); Red Cell Distribution Width 13 % (10-15); White Blood Count 4.2 10^3/uL (3.5-10.8)
[2021-10-27 07:32] LABS: Albumin 3.6 g/dL (3.2-5.2); Albumin/Globulin Ratio 2.1 (1-3); Calcium 9.1 mg/dL (8.6-10.3); Globulin 1.7 g/dL (2-4); Total Bilirubin 0.3 mg/dL (0.2-1.0); Total Protein 5.3 g/dL (6.4-8.9); eGFR CKD-EPI 106.4 (>60)
[2021-10-27] MEDS: ACETAMINOPHEN PO SCH ×2 (08:16→15:31)
[2021-10-27] MEDS: ASPIRIN PO SCH ×2 (08:16→15:31)
[2021-10-27] MEDS: CAFFEINE PO SCH ×2 (08:16→15:31)
[2021-10-27] MEDS: Insulin GLARGINE 100 un/ml 10 ml VIAL SUBCUT SCH ×2 (10:18→22:40)
[2021-10-27] MEDS: Enoxaparin 40 MG/0.4 ML SYR SUBCUT SCH (17:38)
[2021-10-27] MEDS ORDERED: Insulin GLARGINE 100 un/ml 10 ml VIAL SUBCUT ONE (21:10)
[2021-10-27] MEDS: Carbidopa/Levodop CR 50/200 TAB.CR PO SCH (21:34)
[2021-10-28] MEDS: CAFFEINE PO SCH ×2 (05:55→13:20)
[2021-10-28] MEDS: Carbidopa/Levodop 25/100 MG TAB PO SCH ×7 (05:55→19:12)
[2021-10-28] MEDS: ACETAMINOPHEN PO SCH ×2 (05:55→13:20)
[2021-10-28] MEDS: ASPIRIN PO SCH ×2 (05:55→13:20)
[2021-10-28] MEDS: Insulin GLARGINE 100 un/ml 10 ml VIAL SUBCUT SCH ×2 (09:31→21:37)
[2021-10-28] MEDS: Enoxaparin 40 MG/0.4 ML SYR SUBCUT SCH (17:27)
[2021-10-28] MEDS: Carbidopa/Levodop CR 50/200 TAB.CR PO SCH (21:38)
[2021-10-29 05:50] VITALS: BP 119/73
[2021-10-29] MEDS: ACETAMINOPHEN PO SCH (07:28)
[2021-10-29] MEDS: CAFFEINE PO SCH (07:28)
[2021-10-29] MEDS: ASPIRIN PO SCH (07:28)
[2021-10-29] MEDS: Carbidopa/Levodop 25/100 MG TAB PO SCH ×3 (07:28→11:17)
[2021-10-29] MEDS: Insulin GLARGINE 100 un/ml 10 ml VIAL SUBCUT SCH (10:22)
== END 2021-10-29 11:30 | disposition home or self-care (01) | DRG 42 ==
LOC: PMRU 15:29
PROVIDERS: ADMIT Physical Medicine & Rehabilitation; ATTEND Physical Medicine & Rehabilitation

== ENCOUNTER 2023-05-24 13:16 | Inpatient (IN) ==
[2023-05-24] MEDS ORDERED: Al Hydrox/Mg Hydrox/Simet LIQ 30 ML UDC PO PRN (15:08)
[2023-05-24] MEDS ORDERED: ASA-APAP-CAFFEINE ES (NF) TAB PO PRN (15:10)
[2023-05-24] MEDS ORDERED: Albuterol HFA INHALER 8 gm MDI INH PRN (15:10)
[2023-05-24 15:34] LABS: Hematocrit 45.6 % (38-53); Hemoglobin 15.6 g/dL (13.2-16.3); Mean Corpuscular Volume 90.8 fL (80-97); Red Blood Count 5.02 10^6/uL (4.06-5.63)
[2023-05-24 15:35] LABS: ABS Eosinophils 0.1 10^3/uL (0.0-0.5); ABS Lymphocytes 2.6 10^3/uL (1.0-4.8); ABS Monocytes 0.7 10^3/uL (0.0-1.1); ABS Neutrophils 5.6 10^3/uL (1.5-7.6); ABS Nucleated RBC 0.01 10^3/ul; Eosinophil % 1.2 %; Lymphocyte % 28.6 %; Mean Corpuscular Hemoglobin 31.1 pg (27-33); Mean Corpuscular Hgb Conc 34.3 g/dL (31-36); Mean Platelet Volume 8.3 fL (7.5-11.2); Nucleated Red Blood Cells % 0.1 %/100WBC (0.0-0.8); Platelet Count 196 10^3/uL (150-450); Red Cell Distribution Width 13.3 % (12-17)
[2023-05-24 16:00] LABS: ALT 5 U/L (7-52); AST 15 U/L (13-39); Albumin 4.6 g/dL (3.2-5.2); Alkaline Phosphatase 64 U/L (35-149); Anion Gap 6 mmol/L (2-16); Blood Urea Nitrogen 15 mg/dL (6-24); CO2 Carbon Dioxide 29 mmol/L (22-32); Calcium 9.9 mg/dL (8.6-10.3); Chloride 105 mmol/L (101-111); Creatinine, Serum 0.71 mg/dL (0.67-1.17); Globulin 2.3 g/dL (2-4); Glucose 56 mg/dL (70-100); Potassium 3.6 mmol/L (3.5-5.0); Sodium 140 mmol/L (135-145); Total Bilirubin 0.4 mg/dL (0.2-1.0); Total Protein 6.9 g/dL (6.4-8.9); eGFR CKD-EPI 107.7 (>60)
[2023-05-24 16:11] LABS: Acetaminophen < 15 mcg/mL; Alcohol, S < 13 mg/dL (<13); Salicylate < 2.50 mg/dL (<30)
[2023-05-24] MEDS: Carbidopa/Levodop 25/100 MG TAB PO SCH ×2 (16:45→20:18)
[2023-05-24] MEDS ORDERED: Glucose ORAL 15 GM TUBE PO PRN (16:50)
[2023-05-24 17:40] LABS: Urine Appearance Cloudy; Urine Bilirubin Negative (Negative); Urine Blood Negative (Negative); Urine Color Yellow; Urine Glucose 2+(150 mg/dL) (Negative); Urine Ketones Trace (Negative); Urine Nitrite Negative (Negative); Urine Protein Negative (Negative); Urine Specific Gravity 1.014 (1.002-1.030); Urine Urobilinogen Negative (Negative)
[2023-05-24 17:56] LABS: Urine Benzodiazepine Screen Presumptive Positive (None Detect); Urine Cannabinoids Screen None Detected (None Detect); Urine Opiates Screen None Detected (None Detect)
[2023-05-25] MEDS: Carbidopa/Levodop 25/100 MG TAB PO SCH ×8 (08:27→20:33)
[2023-05-25] MEDS: Insulin GLARGINE 100 un/ml 10 ml VIAL SUBCUT SCH (09:56)
[2023-05-26] MEDS: Carbidopa/Levodop 25/100 MG TAB PO SCH ×7 (08:06→21:22)
[2023-05-26 08:39] LABS: HDL Cholesterol 55.9 mg/dL
[2023-05-26] MEDS: Insulin GLARGINE 100 un/ml 10 ml VIAL SUBCUT SCH (08:49)
[2023-05-27] MEDS: Carbidopa/Levodop 25/100 MG TAB PO SCH ×7 (08:09→21:06)
[2023-05-27] MEDS: Insulin GLARGINE 100 un/ml 10 ml VIAL SUBCUT SCH (09:13)
[2023-05-28] MEDS: Carbidopa/Levodop 25/100 MG TAB PO SCH ×7 (07:10→20:25)
[2023-05-28] MEDS: Insulin GLARGINE 100 un/ml 10 ml VIAL SUBCUT SCH (08:11)
[2023-05-29] MEDS: Carbidopa/Levodop 25/100 MG TAB PO SCH ×3 (07:54→11:29)
[2023-05-29 09:31] VITALS: BP 162/87
[2023-05-29] MEDS: Insulin GLARGINE 100 un/ml 10 ml VIAL SUBCUT SCH (10:08)
[2023-05-29 12:18] LABS: Glucose Confirmatory 500 mg/dL (70-100)
== END 2023-05-29 15:29 | disposition home or self-care (01) | DRG 753 ==
LOC: ED 13:16 → EDHOLD 15:08 → BSU 16:54
PROVIDERS: ADMIT Psychiatry & Neurology Psychiatry; ATTEND Psychiatry & Neurology Psychiatry

== ENCOUNTER 2023-08-27 07:28 | Observation (INO) ==
[2023-08-27 08:08] LABS: ABS Monocytes 0.4 10^3/uL (0.0-1.1); ABS Neutrophils 4.2 10^3/uL (1.5-7.6); ABS Nucleated RBC 0.01 10^3/ul; Eosinophil % 0.5 %; Hematocrit 45.9 % (38-53); Hemoglobin 15.6 g/dL (13.2-16.3); Mean Corpuscular Hemoglobin 31.2 pg (27-33); Mean Platelet Volume 8.6 fL (7.5-11.2); Nucleated Red Blood Cells % 0.2 %/100WBC (0.0-0.8); Platelet Count 177 10^3/uL (150-450); Red Blood Count 4.99 10^6/uL (4.06-5.63); Red Cell Distribution Width 13.8 % (12-17); White Blood Count 5.6 10^3/uL (3.6-10.2)
[2023-08-27 08:16] LABS: Activated Partial Thrombo Time 30.4 seconds (26.0-38.0)
[2023-08-27 08:53] LABS: Albumin 4.6 g/dL (3.2-5.2); Albumin/Globulin Ratio 2.2 (1-3); Creatinine, Serum 0.72 mg/dL (0.67-1.17); Direct Bilirubin 0.1 mg/dL (0.03-0.18); Globulin 2.1 g/dL (2-4); HDL Cholesterol 60.5 mg/dL; Indirect Bilirubin 0.4 mg/dL (0.3-1.0); Potassium 4.3 mmol/L (3.5-5.0); Total Bilirubin 0.5 mg/dL (0.2-1.0); Total Protein 6.7 g/dL (6.4-8.9); eGFR CKD-EPI 107.2 (>60)
[2023-08-27] MEDS: Lactated Ringers 1000 ml BAG 1,000 ML IV ONE ×2 (09:11→22:59)
[2023-08-27] MEDS: Morphine 2 MG/ML SYRINGE IV ONE (10:49)
[2023-08-27] MEDS: Ondansetron 4 mg VIAL 2 MG/ML 2 ml VIAL IV ONE (10:49)
[2023-08-27] MEDS: Aspirin EC 325 mg TAB.EC PO ONE (10:53)
[2023-08-27] MEDS: Insulin GLARGINE 100 un/ml 10 ml VIAL SUBCUT SCH (11:14)
[2023-08-27] MEDS: Carbidopa/Levodop CR 50/200 TAB.CR PO SCH ×2 (12:41→20:14)
[2023-08-27] MEDS: Carbidopa/Levodop 25/100 MG TAB PO SCH ×2 (12:44→16:48)
[2023-08-27] MEDS: Acetaminophen IV 1 GM/100ML 1,000 MG/100 ML BAG IV ONE (16:42)
[2023-08-27] MEDS ORDERED: Magnesium Hydroxide LIQ 30 ML UDC PO PRN (19:47)
[2023-08-27] MEDS: Enoxaparin 40 MG/0.4 ML SYR SUBCUT SCH (20:14)
[2023-08-27] MEDS: Senna TAB 8.6 mg TAB PO PRN (20:25)
[2023-08-27] MEDS: Magnesium Hydroxide LIQ 30 ML UDC PO SCH (22:52)
[2023-08-28 06:18] LABS: ABS Lymphocytes 0.9 10^3/uL (1.0-4.8); ABS Monocytes 0.3 10^3/uL (0.0-1.1); ABS Neutrophils 3.7 10^3/uL (1.5-7.6); Hematocrit 42.5 % (38-53); Hemoglobin 14.4 g/dL (13.2-16.3); Lymphocyte % 17.7 %; Mean Corpuscular Hemoglobin 31.3 pg (27-33); Mean Corpuscular Hgb Conc 33.9 g/dL (31-36); Mean Corpuscular Volume 92.5 fL (80-97); Mean Platelet Volume 8.5 fL (7.5-11.2); Platelet Count 149 10^3/uL (150-450); Red Blood Count 4.59 10^6/uL (4.06-5.63); Red Cell Distribution Width 13.2 % (12-17)
[2023-08-28 06:48] LABS: Calcium 9.3 mg/dL (8.6-10.3); Creatinine, Serum 0.65 mg/dL (0.67-1.17); Magnesium 1.7 mg/dL (1.9-2.7); Potassium 4.5 mmol/L (3.5-5.0); eGFR CKD-EPI 110.6 (>60)
[2023-08-28] MEDS ORDERED: Sulfur Hexaflouride MICROSPHR 25 MG VIAL ONE (08:47)
[2023-08-28] MEDS: Carbidopa/Levodop 25/100 MG TAB PO SCH (08:57)
[2023-08-28] MEDS: Magnesium Sulfate 2 gm BAG 2 GM/50 ML BAG IVPB ONE (09:37)
[2023-08-28] MEDS: Magnesium Sulfate IV 1GM/100ML 1 GM/100 ML BAG IV ONE (11:11)
[2023-08-28] MEDS: Iodixanol 320 (CONTRAST) 100 ML SDV IV ONE (11:35)
[2023-08-29 06:44] LABS: Calcium 9.3 mg/dL (8.6-10.3); Creatinine, Serum 0.62 mg/dL (0.67-1.17); Potassium 4.3 mmol/L (3.5-5.0); eGFR CKD-EPI 112.2 (>60)
[2023-08-29] MEDS: Polyethylene Glycol 3350 17 GM PACKET PO PRN (07:29)
[2023-08-29] MEDS: Insulin GLARGINE 100 un/ml 10 ml VIAL SUBCUT SCH (11:06)
[2023-08-29 21:08] LABS: Glucose Confirmatory 438 mg/dL (70-100)
[2023-08-29] MEDS ORDERED: Dextrose 50% Syringe 50 ml 25 GM/50 ML SYRINGE IV PUSH PRN (21:33)
[2023-08-29] MEDS: Insulin GLARGINE 100 un/ml 10 ml VIAL SUBCUT ONE (22:13)
[2023-09-01] MEDS ORDERED: Insulin GLARGINE 100 un/ml 10 ml VIAL SUBCUT SCH (09:00)
[2023-09-01] MEDS: Insulin GLARGINE 100 un/ml 10 ml VIAL SUBCUT SCH (09:50)
[2023-09-02] MEDS: Morphine 2 MG/ML SYRINGE IV ONE (00:23)
[2023-09-02 05:25] VITALS: BP 141/93
== END 2023-09-02 10:20 ==
LOC: ED 07:28 → INTOOBSV 09:35 → EDHOLD 09:35 → SUATTDRO 09:35 → MEDTELE 11:00
PROVIDERS: ADMIT Internal Medicine; ATTEND Hospitalist

== ENCOUNTER 2023-09-23 07:53 | Inpatient (IN) ==
[2023-09-23 08:32] LABS: ABS Lymphocytes 0.7 10^3/uL (1.0-4.8); ABS Monocytes 0.7 10^3/uL (0.0-1.1); ABS Neutrophils 9.4 10^3/uL (1.5-7.6); ABS Nucleated RBC 0.01 10^3/ul; Eosinophil % 0.1 %; Hematocrit 41.9 % (38-53); Hemoglobin 14.9 g/dL (13.2-16.3); Lymphocyte % 6.8 %; Mean Corpuscular Hgb Conc 35.7 g/dL (31-36); Mean Corpuscular Volume 89.9 fL (80-97); Mean Platelet Volume 8.8 fL (7.5-11.2); Platelet Count 184 10^3/uL (150-450); Red Blood Count 4.66 10^6/uL (4.06-5.63); Red Cell Distribution Width 12.7 % (12-17); White Blood Count 10.9 10^3/uL (3.6-10.2)
[2023-09-23 08:53] LABS: Urine Appearance Clear; Urine Bilirubin Negative (Negative); Urine Blood Negative (Negative); Urine Color Light-Yellow; Urine Glucose 4+ (>=1000 mg/dL) (Negative); Urine Ketones Trace (Negative); Urine Nitrite Negative (Negative); Urine Protein Negative (Negative); Urine Urobilinogen Negative (Negative); Urine pH 6.5 (5.0-8.0)
[2023-09-23 09:18] LABS: Albumin 4.4 g/dL (3.2-5.2); C Reactive Protein 2.08 mg/L (<8.01); Calcium 10.1 mg/dL (8.6-10.3); Creatinine, Serum 0.7 mg/dL (0.67-1.17); Globulin 2.2 g/dL (2-4); Magnesium 2.1 mg/dL (1.9-2.7); Phosphorus 3.3 mg/dL (2.5-5.0); Potassium 3.9 mmol/L (3.5-5.0); Total Bilirubin 0.4 mg/dL (0.2-1.0); Total Protein 6.6 g/dL (6.4-8.9); eGFR CKD-EPI 108.1 (>60)
[2023-09-23] MEDS: Carbidopa/Levodop 25/100 MG TAB PO ONE ×2 (09:49→18:12)
[2023-09-23 10:18] LABS: HIV 4th Generation Nonreactive (Nonreactive)
[2023-09-23] MEDS: Carbidopa/Levodop 25/100 MG TAB PO SCH ×5 (11:03→18:40)
[2023-09-23] MEDS ORDERED: Polyethylene Glycol 3350 17 GM PACKET PO PRN (16:05)
[2023-09-23] MEDS: Insulin GLARGINE 100 un/ml 10 ml VIAL SUBCUT SCH (17:06)
[2023-09-23] MEDS: Carbidopa/Levodop CR 50/200 TAB.CR PO SCH (22:43)
[2023-09-24 06:34] LABS: ABS Eosinophils 0.1 10^3/uL (0.0-0.5); ABS Lymphocytes 1.9 10^3/uL (1.0-4.8); ABS Monocytes 0.4 10^3/uL (0.0-1.1); ABS Neutrophils 3.1 10^3/uL (1.5-7.6); ABS Nucleated RBC 0.02 10^3/ul; Eosinophil % 2.6 %; Hematocrit 40.8 % (38-53); Hemoglobin 14.2 g/dL (13.2-16.3); Lymphocyte % 34.5 %; Mean Corpuscular Hemoglobin 31.6 pg (27-33); Mean Corpuscular Hgb Conc 34.7 g/dL (31-36); Mean Corpuscular Volume 91.3 fL (80-97); Mean Platelet Volume 8.7 fL (7.5-11.2); Nucleated Red Blood Cells % 0.4 %/100WBC (0.0-0.8); Platelet Count 157 10^3/uL (150-450); Red Blood Count 4.47 10^6/uL (4.06-5.63); Red Cell Distribution Width 12.7 % (12-17); White Blood Count 5.6 10^3/uL (3.6-10.2)
[2023-09-24 06:52] LABS: Calcium 9.5 mg/dL (8.6-10.3); Creatinine, Serum 0.77 mg/dL (0.67-1.17); Potassium 3.5 mmol/L (3.5-5.0); eGFR CKD-EPI 105.1 (>60)
[2023-09-24] MEDS: Carbidopa/Levodop 25/100 MG TAB PO SCH ×2 (06:59→09:07)
[2023-09-24] MEDS ORDERED: Insulin GLARGINE 100 un/ml 10 ml VIAL SUBCUT SCH (09:00)
[2023-09-24] MEDS: Insulin GLARGINE 100 un/ml 10 ml VIAL SUBCUT ONE (16:57)
[2023-09-25 06:54] LABS: ABS Eosinophils 0.1 10^3/uL (0.0-0.5); ABS Lymphocytes 1.8 10^3/uL (1.0-4.8); ABS Monocytes 0.4 10^3/uL (0.0-1.1); ABS Neutrophils 3.6 10^3/uL (1.5-7.6); ABS Nucleated RBC 0.01 10^3/ul; Eosinophil % 2.3 %; Hematocrit 41.4 % (38-53); Hemoglobin 14.3 g/dL (13.2-16.3); Lymphocyte % 30.6 %; Mean Corpuscular Hemoglobin 31.6 pg (27-33); Mean Corpuscular Hgb Conc 34.5 g/dL (31-36); Mean Corpuscular Volume 91.5 fL (80-97); Nucleated Red Blood Cells % 0.2 %/100WBC (0.0-0.8); Platelet Count 175 10^3/uL (150-450); Red Blood Count 4.53 10^6/uL (4.06-5.63); Red Cell Distribution Width 12.7 % (12-17)
[2023-09-25 07:07] LABS: Calcium 9.5 mg/dL (8.6-10.3); Creatinine, Serum 0.69 mg/dL (0.67-1.17); Magnesium 1.9 mg/dL (1.9-2.7); Potassium 3.8 mmol/L (3.5-5.0); eGFR CKD-EPI 108.6 (>60)
[2023-09-25] MEDS: Insulin GLARGINE 100 un/ml 10 ml VIAL SUBCUT SCH (08:49)
[2023-09-25] MEDS ORDERED: Insulin GLARGINE 100 un/ml 10 ml VIAL SUBCUT SCH (09:00)
[2023-09-25] MEDS: Enoxaparin 40 MG/0.4 ML SYR SUBCUT SCH (12:46)
[2023-09-25] MEDS: Potassium Chlor 10 meq TAB PO ONE (12:49)
[2023-09-26] MEDS: Polyethylene Glycol 3350 17 GM PACKET PO PRN (11:29)
[2023-09-26] MEDS: Senna TAB 8.6 mg TAB PO PRN (11:30)
[2023-09-26] MEDS ORDERED: Dextrose 50% Syringe 50 ml 25 GM/50 ML SYRINGE IV PUSH PRN (14:27)
[2023-09-27] MEDS: diazePAM INJ CARPUJECT 5 MG/ML SYRINGE IV ONE ×2 (02:13→02:20)
[2023-09-27 20:23] LABS: Glucose Confirmatory 404 mg/dL (70-100)
[2023-09-28] MEDS: Insulin GLARGINE 100 un/ml 10 ml VIAL SUBCUT SCH (08:25)
[2023-09-28 14:21] LABS: Calcium 10.1 mg/dL (8.6-10.3); Creatinine, Serum 0.78 mg/dL (0.67-1.17); Magnesium 1.8 mg/dL (1.9-2.7); Potassium 4.2 mmol/L (3.5-5.0); eGFR CKD-EPI 104.7 (>60)
[2023-09-29] MEDS ORDERED: guaiFENesin 100 mg/5 ml LIQ unit dose cup PO PRN (16:03)
[2023-09-29] MEDS: Sodium Chloride(INHALANT)0.9% 5 ML NEB.SOLN INH ONE (16:25)
[2023-09-29] MEDS: HYDROcodone/ACETAMIN 5/325 mg TAB PO PRN (17:31)
[2023-09-30] MEDS: Dextran 70/Hypromellose Tears Eye Drops 15 ml BTL (for Artificials Tears) RIGHT EYE PRN (16:51)
[2023-09-30] MEDS: Senna TAB 8.6 mg TAB PO PRN (21:13)
[2023-10-02] MEDS ORDERED: Dextrose 50% Syringe 50 ml 25 GM/50 ML SYRINGE IV PUSH PRN (20:23)
[2023-10-03] MEDS ORDERED: Lorazepam PYXIS KEY PRN (11:25)
[2023-10-03] MEDS ORDERED: LORazepam 2 mg VIAL 1 ml IV PUSH ONE (11:25)
[2023-10-03] MEDS: diazePAM INJ CARPUJECT 5 MG/ML SYRINGE IV ONE (12:06)
[2023-10-03] MEDS: Neomycin/Polymy/Dex OPTH.SUSP MAXITROL 0.1% 5 ML RIGHT EYE SCH (14:24)
[2023-10-03] MEDS: Morphine ORAL CONCENTRATE 5 MG/0.25 ML ORAL.SYRIN SL PRN (14:36)
[2023-10-03] MEDS: Senna TAB 8.6 mg TAB PO SCH (22:32)
[2023-10-04] MEDS: diazePAM INJ CARPUJECT 5 MG/ML SYRINGE IM ONE (02:38)
[2023-10-04] MEDS ORDERED: Dextrose 50% Syringe 50 ml 25 GM/50 ML SYRINGE IV PUSH PRN (03:58)
[2023-10-04] MEDS ORDERED: Senna TAB 8.6 mg TAB PO SCH (09:00)
[2023-10-04] MEDS: diazePAM INJ CARPUJECT 5 MG/ML SYRINGE IV SCH (11:45)
[2023-10-04] MEDS ORDERED: diazePAM INJ CARPUJECT 5 MG/ML SYRINGE IV SCH ×2 (13:00→17:30)
[2023-10-04] MEDS: Morphine ORAL CONCENTRATE 5 MG/0.25 ML ORAL.SYRIN SL PRN (17:00)
[2023-10-04] MEDS: diazePAM INJ CARPUJECT 5 MG/ML SYRINGE IV PRN (22:12)
[2023-10-05 12:06] LABS: Glucose Confirmatory 430 mg/dL (70-100)
[2023-10-05] MEDS ORDERED: Dextrose 50% Syringe 50 ml 25 GM/50 ML SYRINGE IV PUSH PRN (12:49)
[2023-10-06] MEDS ORDERED: Dextrose 50% Syringe 50 ml 25 GM/50 ML SYRINGE IV PUSH PRN (08:22)
[2023-10-06] MEDS: Insulin GLARGINE 100 un/ml 10 ml VIAL SUBCUT SCH (08:50)
[2023-10-06 09:53] VITALS: BP 106/62
[2023-10-06] MEDS: Docusate LIQ 100 MG/10 ML UDC PO SCH (13:16)
[2023-10-06] MEDS: Polyethylene Glycol 3350 17 GM PACKET PO SCH (13:16)
[2023-10-06] MEDS ORDERED: diazePAM INJ CARPUJECT 5 MG/ML SYRINGE IV PRN (13:41)
[2023-10-06] MEDS: Morphine 2 MG/ML SYRINGE IV PRN (15:54)
== END 2023-10-07 13:20 | disposition expired | DRG 42 ==
LOC: EDHOLD 07:53 → ED 07:53 → MEDTELE 13:38 → SUATTDRO 09-25 10:06 → MED 10-04 21:35
PROVIDERS: ADMIT Hospitalist; ATTEND Internal Medicine